=== PATIENT | male | born 1990 | race Caucasian/White ===

== ENCOUNTER 2017-02-03 19:23 | Emergency (ER) | payer BC ==
[2017-02-03] MEDS ORDERED: oxyCODONE TAB* 5 MG TAB PO ONE ×3 (21:35→23:23)
[2017-02-03] MEDS ORDERED: Clindamycin CAP* 150 MG PO ONE (21:37)
[2017-02-03] MEDS ORDERED: oxyCODONE TAB* 5 MG TAB ONE (22:50)
[2017-02-04 00:25] VITALS: BP 118/77
--- NOTE | 2017-02-04 22:27 | ED ---
Sorin Sims Adam, scribed for Chester Gallardo MD on 02/03/17 at 2126 . Skin Complaint - HPI Summary HPI Summary: Pt is a 26 year old male presenting with skin boils in his left calf. Approximately 1 week ago the pt stole oxymorphone from his step-father, crushed it up, and injected it into his left calf. A boil developed at the site of injection and the pt attempted to zbigniew it himself. Afterwards 2 addtional boils developed in the same area of the left calf. Over the past few days the redness, swelling, and pain in the left calf have increased significantly. The pt is in a wheelchair during examination. He denies any fever. PMHx of MRSA at age 16. Negative Hx of HIV/AIDS. - History of Current Complaint Chief Complaint: EDRashSkinAbscess Time Seen by Provider: 02/03/17 21:10 Stated Complaint: LEFT LEG PAIN Hx Obtained From: Patient Onset/Duration: Started Hours Ago, Atraumatic, Still Present Timing: Constant Onset Severity: Mild Current Severity: Moderate Pain Intensity: 9 Pain Scale Used: 0-10 Numeric Skin Location: Leg - Left calf Character: Swelling, Pain, Redness, Raised Aggravating Symptom(s): Touch Alleviating Symptom(s): Nothing Associated Signs & Symptoms: Negative - Additional Pertinent History Primary Care Physician: SWATHI - Allergy/Home Medications Allergies/Adverse Reactions: Allergies Allergy/AdvReac Type Severity Reaction Status Date / Time Acetaminophen [From Tylenol] Allergy Severe See Comment Verified 06/23/16 13:09 Penicillins Allergy Severe anaphylaxis Verified 06/23/16 13:09 Tramadol Allergy Severe Diarrhea Verified 06/23/16 13:09 PMH/Surg Hx/FS Hx/Imm Hx Endocrine/Hematology History: Reports: Hx Anemia - LOW HH Denies: Hx Diabetes Cardiovascular History: Reports: Hx Congestive Heart Failure - pt. says he was diagnosed, "went away" Denies: Hx Hypertension, Hx Pacemaker/ICD, Other Cardiovascular Problems/ Disorders Respiratory History: Denies: Hx Asthma, Hx Chronic Obstructive Pulmonary Disease (COPD), Other Respiratory Problems/Disorders History: Reports: Hx Kidney Stones - passed on own Denies: Hx Renal Disease Musculoskeletal History: Reports: Hx Back Problems, Hx Gout, Other Musculoskeletal History - SCOLIOSIS, previous upper extremity infection, LOWER BACK STENOSIS Sensory History: Denies: Hx Contacts or Glasses, Hx Hearing Aid Opthamlomology History: Denies: Hx Contacts or Glasses Neurological History: Reports: Hx Headaches, Hx Migraine, Hx Seizures Psychiatric History: Reports: Hx Anxiety, Hx Depression, Hx Inpatient Treatment - [facility] in [facility] - [place] Hx Substance Abuse - IV opana and IV suboxone - Surgical History Surgery Procedure, Year, and Place: LEFT ARM SURGERY FOR INFECTION (INFECTION FROM IV HEROIN USE) Hx Anesthesia Reactions: No Infectious Disease History: Yes Infectious Disease History: Reports: Hx of Known/Suspected MRSA Denies: History Other Infectious Disease, Traveled Outside the in Last 30 Days - Family History Known Family History: Positive: Hypertension, Diabetes - Social History Occupation: Unemployed Lives: With Family - Mother Alcohol Use: None Hx Substance Use: Yes Substance Use Type: Reports: Heroin, Prescribed Substance Use Comment - Amount & Last Used: Hx of heroin and prescription drug abuse Hx Tobacco Use: Yes Smoking Status (MU): Current Every Day Smoker Type: Cigarettes Amount Used/How Often: 1/2 PPD Review of Systems Negative: Fever, Chills Negative: Erythema Negative: Sore Throat Negative: Chest Pain Negative: Shortness Of Breath, Cough Negative: Abdominal Pain, Vomiting, Nausea Negative: dysuria, hematuria Positive: Myalgia - Left calf, Edema - Left calf Positive: Other - Painful fluctuant boils on left calf with surrounding erythema Neurological: Other - Negative dizziness All Other Systems Reviewed And Are Negative: Yes Physical Exam - Summary Physical Exam Summary: Constitutional: Well-developed, Well-nourished, Alert. (-) Distressed Skin: Boils on left posterior calf which are fluctuant. Not actively draining. Surrounding area of erythema and induration measuring approximately 6 cm x 20 cm. HENT: Normocephalic; Atraumatic Eyes: Conjunctiva normal Neck: Musculoskeletal ROM normal neck. (-) JVD, (-) Stridor, (-) Tracheal deviation Cardio: Rhythm regular, rate normal, Heart sounds normal; Intact distal pulses; The pedal pulses are 2+ and symmetric. Radial pulses are 2+ and symmetric. (-) Murmur Pulmonary/Chest wall: Effort normal. (-) Respiratory distress, (-) Wheezes, (-) Rales Abd: Soft, (-) Tenderness, (-) Distension, (-) Guarding, (-) Rebound Musculoskeletal: See under "Skin" above. Lymph: (-) Cervical adenopathy Neuro: Alert, Oriented x3 Psych: Mood and affect Normal Triage Information Reviewed: Yes Vital Signs On Initial Exam: Initial Vitals Temp Pulse Resp BP Pulse Ox 98.6 F 116 18 127/69 97 02/03/17 19:27 02/03/17 19:27 02/03/17 19:27 02/03/17 19:27 02/03/17 19:27 Vital Signs Reviewed: Yes Procedures - Incision and Drainage Site: Left calf. 3 separate I&D's. Massive amounts of pus, malodorous. Diagnostics - Vital Signs Vital Signs Temp Pulse Resp BP Pulse Ox 02/03/17 19:27 98.6 F 116 18 127/69 97 - Laboratory Lab Statement: Any lab studies that have been ordered have been reviewed, and results considered in the medical decision making process. Course/Dx - Diagnoses Provider Diagnoses: Heroin abuse, Cutaneous abscesses Discharge - Discharge Plan Condition: Stable Disposition: HOME Patient Education Materials: Narcotic Abuse (ED), Abscess (ED) Referrals: Sahil Bro MD [Medical Doctor] - Additional Instructions: Follow up with Dr. Bro (Surgery) in 2 days. The documentation as recorded by the Sorin browning Adam accurately reflects the service I personally performed and the decisions made by , Chester Gallardo MD.
== END 2017-02-04 00:24 | disposition home or self-care (01) ==
LOC: ED 19:23
DX: L02.91 Cutaneous abscess, unspecified (principal); F11.10 Opioid abuse, uncomplicated; M79.605 Pain in left leg; F17.210 Nicotine dependence, cigarettes, uncomplicated
CPT/HCPCS: 99282; A9270-GY

== ENCOUNTER 2017-03-03 19:13 | Emergency (ER) | payer BC ==
[2017-03-03] MEDS ORDERED: oxyCODONE TAB* 5 MG TAB PO ONE (21:07)
--- NOTE | 2017-03-03 21:51 | RAD ---
HISTORY: Right hand swelling COMPARISONS: June 21, 2016 TECHNIQUE: Multiple transverse and longitudinal ultrasound images were obtained of the right upper extremity from the level of the internal jugular vein inferiorly through to the infra-cubital veins using grayscale, color Doppler, and spectral Doppler imaging with and without compression and with augmentation. Comparison images were obtained of the contralateral internal jugular vein and subclavian vein. FINDINGS: The study is somewhat limited secondary to patient pain. VEINS: The venous system of the right upper extremity is compressible throughout its course, with normal flow on color Doppler imaging and normal response to augmentation on spectral Doppler imaging. SOFT TISSUES: Unremarkable. OTHER FINDINGS: None. IMPRESSION: NO RIGHT UPPER EXTREMITY DEEP VEIN THROMBOSIS
--- NOTE | 2017-03-03 22:13 | RAD ---
HISTORY: Right hand swelling COMPARISONS: None relevant VIEWS: 4, Frontal, lateral, and oblique views of the right hand FINDINGS: BONE DENSITY: Normal. BONES: There is no displaced fracture. JOINTS: There is no arthropathy. ALIGNMENT: There is no dislocation. SOFT TISSUES: Unremarkable. OTHER FINDINGS: None. IMPRESSION: NO ACUTE OSSEOUS INJURY. IF SYMPTOMS PERSIST, RECOMMEND REPEAT IMAGING.
[2017-03-03] MEDS ORDERED: ALPRAZolam TAB* 0.5 MG PO ONE (23:44)
--- NOTE | 2017-03-03 23:49 | ED ---
Upper Extremity Pain - HPI Summary HPI Summary: 26M presents with wrist pain for 2 days. He denies any injury. He denies any recent IV drug use but has history of IV drug use. He was admitted in the past for infection of his right hand. He states the swelling and the pain in his wrist has increased. He denies any fever. He states that he has a history of blood clots. He states he is unable to move his wrist due to pain. He was on opana 4 times a day for many months. He takes alprazolam 2mg 4 times a day. He is right handed. - History of Current Complaint Chief Complaint: EDExtremityUpper Stated Complaint: RIGHT ARM PAIN Time Seen by Provider: 03/03/17 20:50 - Allergies/Home Medications Allergies/Adverse Reactions: Allergies Allergy/AdvReac Type Severity Reaction Status Date / Time Acetaminophen [From Tylenol] Allergy Severe See Comment Verified 06/23/16 13:09 Penicillins Allergy Severe anaphylaxis Verified 06/23/16 13:09 Tramadol Allergy Severe Diarrhea Verified 06/23/16 13:09 PMH/Surg Hx/FS Hx/Imm Hx Endocrine/Hematology History: Reports: Hx Anemia - LOW HH Denies: Hx Diabetes Cardiovascular History: Reports: Hx Congestive Heart Failure - pt. says he was diagnosed, "went away" Denies: Hx Hypertension, Hx Pacemaker/ICD, Other Cardiovascular Problems/ Disorders Respiratory History: Denies: Hx Asthma, Hx Chronic Obstructive Pulmonary Disease (COPD), Other Respiratory Problems/Disorders History: Reports: Hx Kidney Stones - passed on own Denies: Hx Renal Disease Musculoskeletal History: Reports: Hx Back Problems, Hx Gout, Other Musculoskeletal History - SCOLIOSIS, previous upper extremity infection, LOWER BACK STENOSIS Sensory History: Denies: Hx Contacts or Glasses, Hx Hearing Aid Opthamlomology History: Denies: Hx Contacts or Glasses Neurological History: Reports: Hx Headaches, Hx Migraine, Hx Seizures Psychiatric History: Reports: Hx Anxiety, Hx Depression, Hx Inpatient Treatment - [facility] in [facility] Hx Substance Abuse - IV opana and IV suboxone - Surgical History Surgery Procedure, Year, and Place: LEFT ARM SURGERY FOR INFECTION (INFECTION FROM IV HEROIN USE) Hx Anesthesia Reactions: No Infectious Disease History: No Infectious Disease History: Reports: Hx of Known/Suspected MRSA Denies: History Other Infectious Disease, Traveled Outside the in Last 30 Days - Family History Known Family History: Positive: Hypertension, Diabetes - Social History Alcohol Use: None Hx Substance Use: Yes Substance Use Type: Reports: Heroin, Prescribed Substance Use Comment - Amount & Last Used: Hx of heroin and prescription drug abuse Hx Tobacco Use: Yes Smoking Status (MU): Current Every Day Smoker Type: Cigarettes Amount Used/How Often: 1/2 PPD Review of Systems Negative: Fever Negative: Chest Pain Negative: Shortness Of Breath Positive: Decreased ROM, Edema - right wrist All Other Systems Reviewed And Are Negative: Yes Physical Exam Triage Information Reviewed: Yes Vital Signs On Initial Exam: Initial Vitals Temp Pulse Resp BP Pulse Ox 97.6 F 112 15 128/86 100 03/03/17 19:16 03/03/17 19:16 03/03/17 19:16 03/03/17 19:16 03/03/17 19:16 Vital Signs Reviewed: Yes Appearance: Positive: Well-Appearing Skin: Positive: Warm, Dry Head/Face: Positive: Normal Head/Face Inspection Eyes: Positive: Normal, Conjunctiva Clear Respiratory/Lung Sounds: Positive: Clear to Auscultation, Breath Sounds Present Cardiovascular: Positive: Normal, RRR Musculoskeletal: Positive: Edema Right - hand to elbow, Other - good pulses, tender to palpation of right hand to elbow, capillary refill <2 secs, no pain with finger with passive motion, pain with passive motion of wrist, Diagnostics - Vital Signs Vital Signs Temp Pulse Resp BP Pulse Ox 03/03/17 19:16 97.6 F 112 15 128/86 100 - Laboratory Lab Statement: Any lab studies that have been ordered have been reviewed, and results considered in the medical decision making process. - Radiology hand Xray Interpretation: No Acute Changes Radiology Interpretation Completed By: Radiologist - Ultrasound No standard instances Ultrasound Interpretation: No Acute Changes Ultrasound Interpretation Completed By: Radiologist Course/Dx - Course Course Of Treatment: 26M presents with right lower arm swelling. has history of MRSA. no fever. has history of infections due to IV drug use and DVT. on exam edema noted from elbow down right hand. pain with passive ROM of wrist but patient is resistent to movement so unclear if actually is true pain with passive ROM. u/s normal for DVT. dr orozco saw and agrees with patient needs to be admitted. multiple attempts at IV done and dr orozco tried jugular vein IV but unable to get one. patient is refusing central line. discussed with hospital would admit if got labs. patient is refusing labs. patient is in room screaming when mom present but when mom leaves patient on computer appear comfortable. discussed with dr orozco and said to send home on PO antibiotics. during course of time in ED patient developed some erythema of his hand. will treat with levaquin and told to return if gets worst or in two days. patient understands and agrees with plan - Diagnoses Differential Diagnosis/HQI/PQRI: Positive: Other - cellulitis, deep soft tissue infection, DVT Provider Diagnoses: CELLULITIS Discharge - Discharge Plan Condition: Stable Disposition: HOME Prescriptions: Levofloxacin TAB* [Levaquin TAB*] 750 mg PO DAILY #13 tab oxyCODONE TAB* [Roxycodone TAB 5 mg*] 5 mg PO Q4H PRN #12 tab MDD 6 PRN Reason: Pain Patient Education Materials: Cellulitis (ED) Referrals: Isidro Levy MD [Primary Care Provider] - Additional Instructions: Take antibiotic once a day for 14 days Take ibuprofen for pain every 6 hours, take narcotic for break through pain Place ice on area Return to ED in two days or if develop fever, infection spreads, or any new or worsening symptoms
[2017-03-04] MEDS ORDERED: Levofloxacin TAB* 250 MG PO ONE (01:10)
[2017-03-04] MEDS ORDERED: Ketorolac INJ* 60 MG/2 ML VIAL IM ONE (01:42)
[2017-03-04] MEDS ORDERED: HYDROmorphone* 1 MG/ML 1 ML SYR IM ONE (02:02)
[2017-03-04 03:12] VITALS: BP 123/74
== END 2017-03-04 03:10 | disposition home or self-care (01) ==
LOC: ED 19:13
DX: L03.90 Cellulitis, unspecified (principal); R60.0 Localized edema; F17.210 Nicotine dependence, cigarettes, uncomplicated
CPT/HCPCS: 96374; 96375; 99282; A9270-GY; J1170; J1885

== ENCOUNTER 2017-03-09 07:25 | Emergency (ER) | payer BC ==
[2017-03-09] MEDS ORDERED: clonazePAM TAB(*) 1 MG PO ONE (07:59)
[2017-03-09 08:19] VITALS: BP 129/77
--- NOTE | 2017-03-09 08:20 | ED ---
maday Sims Timothy, scribed for Tunde Stark MD on 03/09/17 at 0754 . Neurological HPI - HPI Summary HPI Summary: Lorenzo Victor is a 26 yo male presenting to [facility] with a seizure while he was sleeping last night. Pt states he lost his xanax traveling, and is requesting xanax. Pt has an appointment with Dr. Levy for a refill on 03/13/17. He states he did not bite his tongue and was not incontinent, but did have some head trauma when he fell out of the couch he was sleeping on. Per triage, Pt is with tremors. He states his PCP will prescribe clonapin instead of xanax. His MHx includes heart murmur, CHF, palpitations, migraine, seizures, spinal cord deformities, bronchitis, anorexia nervosa, kidney stones, gout, scoliosis, anemia, MRSA, depression, anxiety, IV opana and suboxone abuse, tobacco use. - History of Current Complaint Chief Complaint: EDGeneral Stated Complaint: SEIZURE Time Seen by Provider: 03/09/17 07:47 Hx Obtained From: Patient Onset/Duration: Sudden Onset, Started hours ago Timing: Intermittent Episodes Lasting: Onset Severity: Moderate Current Severity: Moderate Seizure Severity: Moderate Number of Seizures: 1 Pain Intensity: 0 Pain Scale Used: 0-10 Numeric Character: Other: - seizure Episode Lasting: Seconds/Minutes Number of Episodes: 1 Syncope Context: Unwitnessed, At Rest Frequency: Episodes x___ - 1 Seizure Character: Generalized Associated Signs and Symptoms: Positive: Change in Medication - lost xanax - Additional Pertinent History Primary Care Physician: [id number] - Allergy/Home Medications Allergies/Adverse Reactions: Allergies Allergy/AdvReac Type Severity Reaction Status Date / Time Acetaminophen [From Tylenol] Allergy Severe See Comment Verified 06/23/16 13:09 Penicillins Allergy Severe anaphylaxis Verified 06/23/16 13:09 Tramadol Allergy Severe Diarrhea Verified 06/23/16 13:09 PMH/Surg Hx/FS Hx/Imm Hx Endocrine/Hematology History: Reports: Hx Anemia - LOW HH Denies: Hx Diabetes Cardiovascular History: Reports: Hx Congestive Heart Failure - pt. says he was diagnosed, "went away" Denies: Hx Hypertension, Hx Pacemaker/ICD, Other Cardiovascular Problems/ Disorders Respiratory History: Denies: Hx Asthma, Hx Chronic Obstructive Pulmonary Disease (COPD), Other Respiratory Problems/Disorders History: Reports: Hx Kidney Stones - passed on own Denies: Hx Renal Disease Musculoskeletal History: Reports: Hx Back Problems, Hx Gout, Other Musculoskeletal History - SCOLIOSIS, previous upper extremity infection, LOWER BACK STENOSIS Sensory History: Denies: Hx Contacts or Glasses, Hx Hearing Aid Opthamlomology History: Denies: Hx Contacts or Glasses Neurological History: Reports: Hx Headaches, Hx Migraine, Hx Seizures Psychiatric History: Reports: Hx Anxiety, Hx Depression, Hx Inpatient Treatment - [facility] in [facility], Hx Substance Abuse - IV opana and IV suboxone - Surgical History Surgery Procedure, Year, and Place: LEFT ARM SURGERY FOR INFECTION (INFECTION FROM IV HEROIN USE) Hx Anesthesia Reactions: No Infectious Disease History: No Infectious Disease History: Reports: Hx of Known/Suspected MRSA Denies: History Other Infectious Disease, Traveled Outside the in Last 30 Days - Family History Known Family History: Positive: Hypertension, Diabetes - Social History Alcohol Use: None Hx Substance Use: Yes Substance Use Type: Reports: Heroin, Prescribed Substance Use Comment - Amount & Last Used: Hx of heroin and prescription drug abuse Hx Tobacco Use: Yes Smoking Status (MU): Current Every Day Smoker Type: Cigarettes Amount Used/How Often: 1/2 PPD Review of Systems Constitutional: Negative Eyes: Negative ENT: Negative Cardiovascular: Negative Respiratory: Negative Gastrointestinal: Negative Genitourinary: Negative Musculoskeletal: Negative Skin: Negative Neurological: Other - seizure Psychological: Normal All Other Systems Reviewed And Are Negative: Yes Physical Exam - Summary Physical Exam Summary: The patient is well-nourished in no acute distress and in no acute pain. The skin is warm and dry and skin color reflects adequate perfusion. HEENT: The head is normocephalic and atraumatic. The pupils are equal and reactive, not pinpoint. The conjunctivae are clear and without drainage. Nares are patent and without drainage. Mouth reveals moist mucous membranes and the throat is without erythema and exudate. The external ears are intact. The ear canals are patent and without drainage. The tympanic membranes are intact. There is a slight tremor in his tongue. Neck is supple with full range of motion and non-tender. There are no carotid bruits. There is no neck vein distension. Respiratory: Chest is non-tender. Lungs are not clear to auscultation, there is rhonchi and wheezing. Cardiovascular: Hear is regular rate and rhythm. There is no murmur or rub auscultated. There is no peripheral edema and pulses are symmetrical and equal. Abdomen: The abdomen is soft and non-tender. There are normal bowel sounds heard in all four quadrants and there is no organomegaly palpated. Musculoskeletal: There is no back pain noted. Extremities are non-tender with full range of motion. There is good capillary refill. There is no peripheral edema or calf tenderness elicited. Neurological: Patient is alert and oriented to person, place and time. The patient has symmetrical motor strength in all four extremities. Cranial nerves are grossly intact. Deep tendon reflexes are symmetrical and equal in all four extremities. There is a slight termor at rest in his extremities. Psychiatric: The patient has an appropriate affect and does not exhibit any anxiety or depression. Triage Information Reviewed: Yes Vital Signs On Initial Exam: Initial Vitals Temp Pulse Resp BP Pulse Ox 98.2 F 87 20 148/86 100 03/09/17 07:27 03/09/17 07:27 03/09/17 07:27 03/09/17 07:27 03/09/17 07:27 Vital Signs Reviewed: Yes Diagnostics - Vital Signs Vital Signs Temp Pulse Resp BP Pulse Ox 03/09/17 07:29 98.4 F 113 20 148/86 100 03/09/17 07:27 98.2 F 87 20 148/86 100 - Laboratory Lab Statement: Any lab studies that have been ordered have been reviewed, and results considered in the medical decision making process. Course/Dx - Course Assessment/Plan: Lorenzo Victor is a 26 yo male presenting to [facility] due to a seizure in his sleep last night. He states he lost his xanax while traveling, and is requesting more. His medication list was reviewed this visit. ISTOP was consulted this visit, Pt has prescriptions for Xanax every two weeks, he has no Hx of seeking xanax from the ED. After clinical examination, he will be discharged with prescription refill and benzodiazepine withdrawal with appropriate instructions and a Rx for klonopin. - Differential Dx Differential Diagnoses Neuro: Positive: Medication Reaction, Seizure Disorder, Other - benzodiazepine withdrawal - Diagnoses Provider Diagnoses: Prescription refill, Benzodiazepine withdrawal Discharge - Discharge Plan Condition: Stable Disposition: HOME Prescriptions: clonazePAM TAB(*) [KlonoPIN TAB(*)] 1 mg PO TID PRN #12 tab MDD 3 PRN Reason: Anxiety Patient Education Materials: Anxiety (ED), Panic Attack (ED) Referrals: Isidro Levy MD [Primary Care Provider] - 5 Days Additional Instructions: Please follow up with your primary care physician regarding your visit to the emergency department today. Return to the emergency department with any new or recurring symptoms. The documentation as recorded by the maday browning Timothy accurately reflects the service I personally performed and the decisions made by me, Tunde Stark MD.
[2017-03-09] MEDS ORDERED: clonazePAM TAB(*) 0.5 MG PO ONE (09:00)
== END 2017-03-09 08:21 | disposition home or self-care (01) ==
LOC: ED 07:25
DX: F13.239 Sedative, hypnotic or anxiolytic dependence with withdrawal, unspecified (principal); R56.9 Unspecified convulsions; T42.4X5A Adverse effect of benzodiazepines, initial encounter; D64.9 Anemia, unspecified; F17.210 Nicotine dependence, cigarettes, uncomplicated
CPT/HCPCS: 99282; A9270-GY

== ENCOUNTER 2017-07-29 15:10 | Inpatient (IN) | payer BC ==
[2017-07-29] MEDS ORDERED: Vancomycin(*) 1,000 MG VIAL IVPB ONE (16:00)
[2017-07-29] MEDS ORDERED: Vancomycin(*) 1,000 MG VIAL IVPB SCH (16:00)
[2017-07-29] MEDS ORDERED: Vancomycin(*) 1,250 MG IV x ONCE IVPB ONE ×2 (16:00)
[2017-07-29] MEDS ORDERED: Lidocaine 1%* 5 ML VIAL ONE (16:09)
[2017-07-29] MEDS: NS 0.9% 1000 ML*IV.FLUID IV ONE ×2 (16:39→16:40)
[2017-07-29 17:12] LABS: Hematocrit 35 % (42-52); Hemoglobin 11.4 g/dl (14.0-18.0); Mean Corpuscular HGB Conc 33 g/dl (31-36); Mean Corpuscular Hemoglobin 26 pg (27-31); Mean Corpuscular Volume 80 fL (80-94); Mean Platelet Volume 9 um3 (7.4-10.4); Red Blood Count 4.33 10^6/ul (4.0-5.4); Red Cell Distribution Width 16 % (10.5-15); White Blood Count 10.1 10^3/ul (3.5-10.8)
[2017-07-29] MEDS ORDERED: Ketorolac INJ* 30 MG/ML 1 ML VIAL IV PUSH ONE (17:17)
[2017-07-29 17:30] LABS: Albumin 3.7 g/dL (3.2-5.2); BUN/Creatinine Ratio 16.7 (8-20); C Reactive Protein 128.21 mg/L (< 5.00); Calcium 9.2 mg/dL (8.6-10.3); EGFR African American 172.5 (>60); EGFR Non-African American 134.1 (>60); Globulin 4.5 g/dL (2-4); Potassium 3.5 mmol/L (3.5-5.0); Total Bilirubin 0.4 mg/dL (0.2-1.0); Total Protein 8.2 g/dL (6.4-8.9)
[2017-07-29 17:31] LABS: Troponin I 0.01 ng/mL (<0.04)
--- NOTE | 2017-07-29 17:36 | RAD ---
INDICATION: Sepsis. COMPARISON: Comparison is made with a prior chest x-ray study from January 24, 2016. TECHNIQUE: A portable view of the chest was obtained. FINDINGS: Cardiac and mediastinal contours appear to be within normal limits. The lungs are underinflated and clear. No pleural effusion is seen. IMPRESSION: NO EVIDENCE FOR ACUTE DISEASE.
[2017-07-29 18:05] LABS: Erythrocyte Sed Rate 81 mm/Hr (0-14)
[2017-07-29] MEDS ORDERED: Vancomycin per Pharmacy* NOTE FOLLOW UP PRN (18:28)
--- NOTE | 2017-07-29 18:39 | ED ---
Ajay Sims Thomas, scribed for Олег Tucker MD on 07/29/17 at 1611 . Skin Complaint - HPI Summary HPI Summary: The patient is a 26 y/o M presenting to the ED with an abscess on his RLE that he first noticed a week ago. Today it became painful to ambulate, prompting an ED visit. His current pain is 10/10. He has a Hx of abscesses. He denies IV drug use in the last 3 years. He is on 2mg Xanax every four hours for his social anxiety disorder and panic attacks. 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 He smokes 1 PPD and occasionally drinks alcohol. FHx of DM. - History of Current Complaint Chief Complaint: EDGeneral Time Seen by Provider: 07/29/17 15:43 Stated Complaint: INFECTION IN RT LOWER EXTREMITY Hx Obtained From: Patient Onset/Duration: Started Weeks Ago - onset one week ago, Still Present, Worse Since - today Timing: Constant Pain Intensity: 10 Pain Scale Used: 0-10 Numeric Skin Location: Other: - RLE and LLE Character: Pain Aggravating Symptom(s): Nothing Alleviating Symptom(s): Nothing Associated Signs & Symptoms: Fever Related History: Other: - Hx of abscesses - Additional Pertinent History Primary Care Physician: [id number] - Allergy/Home Medications Allergies/Adverse Reactions: Allergies Allergy/AdvReac Type Severity Reaction Status Date / Time Acetaminophen [From Tylenol] Allergy Severe See Comment Verified 06/23/16 13:09 Penicillins Allergy Severe anaphylaxis Verified 06/23/16 13:09 Tramadol Allergy Severe Diarrhea Verified 06/23/16 13:09 Home Medications: Home Medications Hydromorphone HCl [Hydromorphone HCl ER 8 mg] 2 mg PO Q4H 07/29/17 [History Confirmed 07/29/17] PMH/Surg Hx/FS Hx/Imm Hx Previously Healthy: No Endocrine/Hematology History: Reports: Hx Anemia - LOW HH Denies: Hx Diabetes Cardiovascular History: Reports: Hx Congestive Heart Failure - pt. says he was diagnosed, "went away" Denies: Hx Hypertension, Hx Pacemaker/ICD, Other Cardiovascular Problems/ Disorders Respiratory History: Denies: Hx Asthma, Hx Chronic Obstructive Pulmonary Disease (COPD), Other Respiratory Problems/Disorders History: Reports: Hx Kidney Stones - passed on own Denies: Hx Renal Disease Musculoskeletal History: Reports: Hx Back Problems, Hx Gout, Other Musculoskeletal History - SCOLIOSIS, previous upper extremity infection, LOWER BACK STENOSIS Sensory History: Denies: Hx Contacts or Glasses, Hx Hearing Aid Opthamlomology History: Denies: Hx Contacts or Glasses Neurological History: Reports: Hx Headaches, Hx Migraine, Hx Seizures Psychiatric History: Reports: Hx Anxiety, Hx Depression, Hx Inpatient Treatment - [facility] in [facility] Hx Substance Abuse - IV opana and IV suboxone - Surgical History Surgery Procedure, Year, and Place: LEFT ARM SURGERY FOR INFECTION (INFECTION FROM IV HEROIN USE) Hx Anesthesia Reactions: No Infectious Disease History: Yes Infectious Disease History: Reports: Hx of Known/Suspected MRSA Denies: History Other Infectious Disease, Traveled Outside the in Last 30 Days - Family History Known Family History: Positive: Hypertension, Diabetes - Social History Alcohol Use: Rare Hx Substance Use: Yes Substance Use Type: Reports: Prescribed Substance Use Comment - Amount & Last Used: Hx of prescription drug abuse intravenously Hx Tobacco Use: Yes Smoking Status (MU): Light Every Day Tobacco Smoker Type: Cigarettes Amount Used/How Often: 1/2 PPD Review of Systems Positive: Fever Positive: Other - Large abscess in right leg. Small abscesses on left leg. All Other Systems Reviewed And Are Negative: Yes Physical Exam - Summary Physical Exam Summary: VITAL SIGNS: Reviewed. GENERAL: Patient is a well-developed and nourished male who is lying comfortable in the stretcher. Patient is not in any acute respiratory distress. HEAD AND FACE: No signs of trauma. No ecchymosis, hematomas or skull depressions. No sinus tenderness. EYES: PERRLA, EOMI x 2, No injected conjunctiva, no nystagmus. EARS: Hearing grossly intact. Ear canals and tympanic membranes are within normal limits. MOUTH: Oropharynx within normal limits. NECK: Supple, trachea is midline, no adenopathy, no JVD, no carotid bruit, no c- spine tenderness, neck with full ROM. CHEST: Symmetric, no tenderness at palpation LUNGS: Clear to auscultation bilaterally. No wheezing or crackles. CVS: Regular rhythm, tachycardic. S1 and S2 present, no murmurs or gallops appreciated. ABDOMEN: Soft, non-tender. No signs of distention. No rebound no guarding, and no masses palpated. Bowel sounds are normal. EXTREMITIES: FROM in all major joints, no edema, no cyanosis or clubbing. NEURO: Alert and oriented x 3. No acute neurological deficits. Speech is normal and follows commands. SKIN: Dry and warm. There are multiple abscesses on the right leg. There is a big abscess in the right calf. There is cellulitis. He has pallor. Triage Information Reviewed: Yes Vital Signs On Initial Exam: Initial Vitals Temp Pulse Resp BP Pulse Ox 100.3 F 110 20 123/67 100 07/29/17 15:13 07/29/17 15:13 07/29/17 15:13 07/29/17 15:13 07/29/17 15:13 Vital Signs Reviewed: Yes - [place] Coma Scale Coma Scale Total: 15 Procedures - Incision and Drainage Anesthesia: Local - The patient was appropriately positioned. 5cc of lidocaine without epinephrine was used for local anesthesia. An 11 blade scalpel was used for a single incision. Copious amounts of pus were expressed. Cultures were obtained and sent to the lab. The wound was packed with Iodoform gauze. The procedure was tolerated well without complications. The wound was dressed with sterile 4x4 gauze and paper tape. Instrument(s): Scalpel - 11 blade Packing: Gauze - Iodoform Gauze Diagnostics - Vital Signs Vital Signs Temp Pulse Resp BP Pulse Ox 07/29/17 15:13 100.3 F 110 20 123/67 100 - Laboratory Lab Results: Lab Results 07/29/17 07/29/17 07/29/17 Range/Units 16:37 16:37 16:37 WBC 10.1 (3.5-10.8) 10^3/ul RBC 4.33 (4.0-5.4) 10^6/ul Hgb 11.4 L (14.0-18.0) g/dl Hct 35 L (42-52) % MCV 80 (80-94) fL MCH 26 L (27-31) pg MCHC 33 (31-36) g/dl RDW 16 H (10.5-15) % Plt Count 197 (150-450) 10^3/ul MPV 9 (7.4-10.4) um3 Neut % (Auto) 74.6 (38-83) % Lymph % (Auto) 15.9 L (25-47) % [place] % (Auto) 8.9 (1-9) % Eos % (Auto) 0.5 (0-6) % Baso % (Auto) 0.1 (0-2) % Absolute Neuts (auto) 7.5 (1.5-7.7) 10^3/ul Absolute Lymphs (auto) 1.6 (1.0-4.8) 10^3/ul Absolute Monos (auto) 0.9 H (0-0.8) 10^3/ul Absolute Eos (auto) 0.1 (0-0.6) 10^3/ul Absolute Basos (auto) 0 (0-0.2) 10^3/ul Absolute Nucleated RBC 0.01 10^3/ul Nucleated RBC % 0.1 ESR 81 H (0-14) mm/Hr INR (Anticoag Therapy) 1.10 (0.89-1.11) APTT 29.0 (26.0-36.3) seconds Fibrinogen 597 H (110.8-404.3) mg/dL Sodium 139 (133-145) mmol/L Potassium 3.5 (3.5-5.0) mmol/L Chloride 104 (101-111) mmol/L Carbon Dioxide 26 (22-32) mmol/L Anion Gap 9 (2-11) mmol/L BUN 12 (6-24) mg/dL Creatinine 0.72 (0.67-1.17) mg/dL Est GFR ( Amer) 172.5 (>60) Est GFR (Non-Af Amer) 134.1 (>60) BUN/Creatinine Ratio 16.7 (8-20) Glucose 86 (70-100) mg/dL Lactic Acid (0.5-2.0) mmol/L Calcium 9.2 (8.6-10.3) mg/dL Total Bilirubin 0.40 (0.2-1.0) mg/dL AST 10 L (13-39) U/L ALT 19 (7-52) U/L Alkaline Phosphatase 67 (34-104) U/L Troponin I 0.01 (<0.04) ng/mL C-Reactive Protein 128.21 H (< 5.00) mg/L B-Natriuretic Peptide ( - 100) pg/mL Total Protein 8.2 (6.4-8.9) g/dL Albumin 3.7 (3.2-5.2) g/dL Globulin 4.5 H (2-4) g/dL Albumin/Globulin Ratio 0.8 L (1-3) Procalcitonin (<0.6) ng/mL 07/29/17 07/29/17 07/29/17 Range/Units 16:37 16:37 16:37 WBC (3.5-10.8) 10^3/ul RBC (4.0-5.4) 10^6/ul Hgb (14.0-18.0) g/dl Hct (42-52) % MCV (80-94) fL MCH (27-31) pg MCHC (31-36) g/dl RDW (10.5-15) % Plt Count (150-450) 10^3/ul MPV (7.4-10.4) um3 Neut % (Auto) (38-83) % Lymph % (Auto) (25-47) % [place] % (Auto) (1-9) % Eos % (Auto) (0-6) % Baso % (Auto) (0-2) % Absolute Neuts (auto) (1.5-7.7) 10^3/ul Absolute Lymphs (auto) (1.0-4.8) 10^3/ul Absolute Monos (auto) (0-0.8) 10^3/ul Absolute Eos (auto) (0-0.6) 10^3/ul Absolute Basos (auto) (0-0.2) 10^3/ul Absolute Nucleated RBC 10^3/ul Nucleated RBC % ESR (0-14) mm/Hr INR (Anticoag Therapy) (0.89-1.11) APTT (26.0-36.3) seconds Fibrinogen (110.8-404.3) mg/dL Sodium (133-145) mmol/L Potassium (3.5-5.0) mmol/L Chloride (101-111) mmol/L Carbon Dioxide (22-32) mmol/L Anion Gap (2-11) mmol/L BUN (6-24) mg/dL Creatinine (0.67-1.17) mg/dL Est GFR ( Amer) (>60) Est GFR (Non-Af Amer) (>60) BUN/Creatinine Ratio (8-20) Glucose (70-100) mg/dL Lactic Acid 1.3 (0.5-2.0) mmol/L Calcium (8.6-10.3) mg/dL Total Bilirubin (0.2-1.0) mg/dL AST (13-39) U/L ALT (7-52) U/L Alkaline Phosphatase (34-104) U/L Troponin I (<0.04) ng/mL C-Reactive Protein (< 5.00) mg/L B-Natriuretic Peptide 93 ( - 100) pg/mL Total Protein (6.4-8.9) g/dL Albumin (3.2-5.2) g/dL Globulin (2-4) g/dL Albumin/Globulin Ratio (1-3) Procalcitonin 0.1 (<0.6) ng/mL Result Diagrams: 07/29/17 16:37 07/29/17 16:37 Lab Statement: Any lab studies that have been ordered have been reviewed, and results considered in the medical decision making process. - EKG 15:35 Cardiac Rate: NL - 86 BPM EKG Interpretation: Sinus rhythm. No ST elevations. Q-wave in lead III. Course/Dx - Course Assessment/Plan: The patient is a 26 y/o M presenting to the ED with an abscess on his RLE that he first noticed a week ago. Today it became painful to ambulate , prompting an ED visit. His current pain is 10/10. He has a Hx of abscesses. He denies IV drug use in the last 3 years. He is on 2mg Xanax every four hours for his social anxiety disorder and panic attacks. 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 He smokes 1 PPD and occasionally drinks alcohol. FHx of DM. Test results are without significant abnormality except a slight anemia, fibrinogen of 597, and CRP of 128.21. Initially, when the patient came in he had a fever of 100.3. The patient was tachycardic and his BP was on the low side. Initially the patient was given vancomycin because of his Hx of MRSA. The patient was given Toradol for the pain and IV fluids since he was slightly hypotensive. At this point, I discussed the physical exam and findings with Dr. Vasquez, who accepts the patient for admission. The patient is hemodynamically stable and alert and oriented x3. - Diagnoses Provider Diagnoses: Abscess, Cellulitis, Rule out sepsis - Physician Notifications Discussed Care Of Patient With: Livia Vasquez Time Discussed With Above Provider: 18:00 Instructed by Provider To: Other - I consulted with Dr. Vasquez, hospitalist, who accepts the patient [place] [facility] [place] - Discharge Plan Condition: Fair Disposition: ADMITTED TO [facility] Discharge Disposition Comment: By Dr. Vasquez The documentation as recorded by the Ajay browning Thomas accurately reflects the service I personally performed and the decisions made by me, Олег Tucker MD.
[2017-07-29] MEDS: ALPRAZolam TAB* 0.5 MG PO PRN (19:23)
[2017-07-29] MEDS: Ketorolac TAB * 10 MG TAB PO PRN (19:23)
[2017-07-29] MEDS: Enoxaparin(*) 40 MG/0.4 ML SYR SUBCUT SCH (19:53)
[2017-07-29] MEDS: NS 0.9% 1000 ML* 1,000 ML IV SCH (20:00)
[2017-07-29] MEDS ORDERED: Acetaminophen TAB* 325 MG PO PRN (20:37)
--- NOTE | 2017-07-29 21:58 | HP ---
Amended report to enter cosigning doctor. HISTORY AND PHYSICAL: DATE OF ADMISSION: 07/29/17 ADMITTING PROVIDER: Dr. Vasquez* (dictation provided by Regina Heller NP). PRIMARY PROVIDERS: Dr. Levy and Irma Weinberg NP HISTORY OF PRESENT ILLNESS: Mr. Breen is a 26-year-old male. He has a history of IV drug abuse. He states he has been in remission since he was 20 years old, but on review of his chart was found last year in 2016, he admitted at that point injecting IV drug abuse, and Dr. Rae had done a washout of his hand and I and D. On this admission, he is here with recurrent abscesses to his lower legs. He has multiple healing sores in left lower leg, one that is still open and it is healing. Today, he presents with a large right abscess to the calf. Prior to seeing the patient, the emergency doctor did an I and D. The dressing is dry and intact at this point, previously placed, was not removed to view the abscess. The patient is being admitted for vancomycin treatment while we wait for cultures to come back. The patient states that he has not previously been seeking treatment or consultation for these abscesses. The patient also states that at home, he takes Xanax 2 mg every 4 hours and Dilaudid 2 mg every 4 hours. Upon reviewing the I- STOP, he has had a prescription for 2 mg of Xanax 4 times a day but has had not had a prescription for an opioid. As previously stated, the patient will be admitted overnight for vancomycin IV and awaiting culture results of the abscess that was I and D' d by the emergency room doctor. PAST MEDICAL HISTORY: 1. IV drug abuse. The patient states that when he was 20, he went to rehab and he has been clean since but other health records do not support this. 2. He has a history of MRSA related to in ninth grade he had a sebaceous cyst abscess under his armpit that was I and D'd and that showed MRSA. 3. Recurrent leg abscesses. 4. Anxiety. 5. Depression. MEDICATIONS: That we could verify: 1. Ibuprofen, unknown amount taken. 2. Xanax. The prescription states 2 mg four times a day. 3. Lexapro 10 mg daily. ALLERGIES: The patient is allergic to PENICILLIN; TYLENOL, which causes flushing; TRAMADOL, which causes nausea. FAMILY HISTORY: Negative for heart attacks, is negative for cancer and diabetes. SOCIAL HISTORY: He does smoke at least half a pack of cigarettes a day. He denies alcohol and he does deny injecting drugs. REVIEW OF SYSTEMS: He is in the emergency room on a stretcher sitting upright, in no acute distress. He denies any visual changes. Denies chest pain, shortness of breath or cough, constipation or diarrhea. Denies hematuria or urgency. Denies muscle or joint pain. He does have multiple open areas in various stages of healing on his lower legs bilaterally. He denies dizziness. He does have a history of anxiety, which he treats with Xanax. He has a history of depression, which he uses Lexapro for treatment. He denies cold or heat intolerance. Denies any unusual bleeding or bruising. PHYSICAL EXAMINATION GENERAL: The patient is sitting on a stretcher, in no acute distress, waiting for admission. HEENT: Moist mucous membranes. PERRLA. LUNGS: Clear to auscultation bilaterally. No wheezes, rales, or rhonchi can be heard. CARDIAC: Regular rate and rhythm. S1, S2 noted. No rubs, gallops, or murmurs auscultated. ABDOMEN: Flat, soft, nontender. MUSCULOSKELETAL: Bilateral extremities with open sores to them in various stages of healing. The right lower leg has a dressing covering the abscess of his I and D by the emergency room physician. NEURO: He is alert and oriented, flat affect. IMPRESSION: The patient will be admitted overnight, will be receiving vancomycin to treat the abscesses. Wound culture pending. The patient will be provided with Xanax that he routinely takes and we will give Toradol for pain control. PLAN: 1. Right lower leg abscess. He will be receiving vancomycin. Wound cultures pending. Toradol for pain. Consult Dr. Miller for greater than 2-year history of open sores and history of MRSA. 2. Anxiety. We will be providing Xanax 2 mg 3 times a day. 3. Depression. We will continue his Lexapro. 4. DVT prophylaxis. He will be receiving Lovenox 40 mg daily and up ad ethel in his room. 5. Code status. He is a full code. His surrogate decision maker is his mother , Yu. TIME SPENT: On this exam was approximately 60 minutes with greater than half that time spent [id number] with the patient obtaining H and P, the other half time was spent going over the plan of care and implementing the plan of care. I discussed with Dr. Vasquez, who is in agreement with the plan. REGINA HELLER, FARM [employer] LEADER [id number]/[facility] #: [id number] ZAC
[2017-07-29 22:05] LABS: Urine Bilirubin Negative (Negative); Urine Glucose Negative (Negative); Urine Nitrite Negative (Negative)
[2017-07-29 22:20] LABS: Benzodiazepine Urine Screen Presumptive Positive (None Detect)
[2017-07-30] MEDS ORDERED: Vancomycin(*) 1,250 MG in NS 0.9% 250 ML* 250 ML IVPB SCH (00:30)
[2017-07-30] MEDS: Ketorolac TAB * 10 MG TAB PO PRN ×2 (08:52→20:06)
[2017-07-30] MEDS: Citalopram TAB* 20 MG PO SCH (08:52)
[2017-07-30] MEDS: ALPRAZolam TAB* 0.5 MG PO PRN ×3 (08:53→20:30)
[2017-07-30] MEDS ORDERED: HYDROmorphone TAB* 2 MG PO PRN (09:26)
[2017-07-30] MEDS: Clindamycin 600 MG IVPREMIX(* 600 MG/50 ML SDV IV SCH ×2 (10:21→18:22)
[2017-07-30] MEDS ORDERED: Polyethylene Glycol 3350* 17 GM PACKET PO PRN (10:41)
--- NOTE | 2017-07-30 12:00 | CONS ---
CONSULTATION REPORT: DATE OF CONSULT: 07/30/17 REQUESTING PROVIDER: Yanci Heller NP CONSULTING SERVICE: Infectious Disease. REASON FOR CONSULTATION: Right leg abscess. IMPRESSION: 1. Right calf abscess, which I think has not completely drained. There is some associated cellulit is. The Gram stain showed gram-positive cocci in clusters, gram- positive cocci in chains, gram-pos itive bacilli, gram-negative coccobacilli. PCR for staph aureus is positive, PCR for MRSA was negat alicia. He does have some bulla formation and is exquisitely tender to palpation, so I am concerned ab out remaining abscess as well as a localized, either purulent cellulitis or necrotizing soft tissue infection. 2. History of injection drug use. 3. PENICILLIN allergy, unknown reaction as a child. 4. Recurrent lower extremity abscess. RECOMMENDATIONS: 1. Stop vancomycin, start ceftriaxone 2 g a day. 2. Clindamycin 600 mg IV every 8 hours. I will check a CK. I discussed the case with Dr. Jose gan ho has agreed to see him in consultation. HISTORY OF PRESENT ILLNESS: A 26-year-old man with a past history of injection drug use, he denies it recently. He has recurrent abscess in his lower extremities that comes and goes. This one devel oped in his right calf over the last few days and it started resolving started getting worse and worse. He came to the emergency room and he had a white blood cell count of 10,000. Dr. Tucker did a bedside debridement, obtained purulent material, sent for a specimen, Gram stain as noted abov e. The culture is pending. He has had no fevers, chills, or sweats. He has significant pain at th e site of the incision and debridement. PAST MEDICAL HISTORY: 1. Cutaneous abscess, multiple. 2. MRSA infection in the 9th grade. 3. Anxiety. 4. Depression. 5. Past injection drug use. MEDICATIONS: 1. Alprazolam p.r.n. 2. Celexa. 3. Enoxaparin. 4. Vancomycin. ALLERGIES: 1. PENICILLIN, unknown reaction as a child. 2. TYLENOL. 3. TRAMADOL. FAMILY HISTORY: No recurrent infections. SOCIAL HISTORY: He lives in [place] with his mother and step father. He has pets at home. No one else at home with skin abscesses. Past injection of Suboxone and heroin. REVIEW OF SYSTEMS: All negative to 14-point review of systems except as noted above. PHYSICAL EXAMINATION: Vital Signs: Temperature 37.4, heart rate 80, respiratory rate 18, blood pre ssure 90/50, O2 sat 100% on room air. In general, he is awake, not in distress. Neurologic: He is oriented x3, follows all commands. Moves all his extremities. He can flex and extend his right an kle. HEENT: There is no conjunctival hemorrhage. Oropharynx without lesions. Neck: Supple witho ut nuchal rigidity. Lymph Nodes: There is no inguinal, axillary or epitrochlear lymphadenopathy. Heart is regular rate and rhythm without murmurs, rubs or gallops. Lungs are clear to auscultation bilaterally. Abdomen: Soft, nontender, nondistended. Bowel sounds are present. Skin: There is n o rash or splinter hemorrhages. Musculoskeletal: Right calf, there is a 5 cm area of superficial s kin sloughing over superficial bulla with clear fluid. There is less than 1 cm incision draining pu rulent bloody fluid that is exquisitely tender. There is no crepitus or fluctuance. DIAGNOSTIC STUDIES/LAB DATA: Creatinine 0.7, CRP 130, white blood cell count 10, hemoglobin 11, mireya telets 197,000. Please see impressions and recommendations outlined above, which I have discussed wi th Dr. Garcia. Thank you for asking me to see Mr. Breen in consultation. [id number]/[id number] #: [id number]
[2017-07-30] MEDS: Docusate CAP* 100 MG PO SCH (12:43)
[2017-07-30] MEDS: Senna TAB PO SCH (12:43)
[2017-07-30] MEDS: HYDROmorphone INJ* 2 MG/ML CARPUJECT SYRINGE IV SLOW PU PRN (12:44)
--- NOTE | 2017-07-30 13:11 | RAD ---
Edited for charges. Indication: Right calf abscess. CT of the right calf was performed in the axial plane. Sagittal and coronal reconstructed images were obtained. No drainable fluid collections are noted. No evidence of subcutaneous or fascial air is noted. There is fluid collection with air in the posterior medial aspect of the catheter measuring approximately 13 mm x 13 mm AP x 10 mm in width. This may represent a small subcutaneous abscess with air. There is fluid tracking along the fascial surface surrounding the calf muscles. This is a nonspecific finding. No other drainable collections are noted. No intramuscular fluid collections are noted. IMPRESSION: There is a subcutaneous abscess in the mid calf measuring 13 mm with air. There is fluid tracking along the fascia of the calf muscles. This is nonspecific. Clinical correlation is suggested. No evidence of subcutaneous or fascial air is noted tracking along the fascial planes. MTDD
--- NOTE | 2017-07-30 14:33 | PN ---
Progress Note - Progress Note Date of Service: 07/30/17 Note: Brief surgery note: (full note dictated) S: asked to see this 26 yo male w/ hx of drug abuse and chronic pain and anxiety (on chronic po Dilaudid and Xanax) who underwent I&D of a Right LE abscess in the ED yesterday, which had been evolving for one week. He was admitted for IV abx and pain control. We were asked to see him for concern re: possible necrotizing fasciitis based on his level of pain. Of note, as of this a.m., he was only receiving Toradol prn for pain; his usual po narcotics had not been continued; they have since been ordered. Current Medications Alprazolam (Xanax Tab*) 2 mg PO TID PRN PRN Reason: ANXIETY Last Admin: 07/30/17 12:43 Dose: 2 mg Citalopram Hydrobromide (Celexa Tab*) 20 mg PO DAILY [facility] Last Admin: 07/30/17 08:52 Dose: 20 mg Docusate Sodium (Colace Cap*) 100 mg PO DAILY [facility] Last Admin: 07/30/17 12:43 Dose: 100 mg Enoxaparin Sodium (Lovenox(*)) 40 mg SUBCUT Q24H [facility] Last Admin: 07/29/17 19:53 Dose: 40 mg Hydromorphone HCl (Dilaudid Tab*) 2 mg PO Q6H PRN PRN Reason: PAIN Last Admin: 07/30/17 09:46 Dose: 2 mg Hydromorphone HCl (Dilaudid Inj*) 2 mg IV SLOW PU Q24H PRN PRN Reason: prior to packing change Last Admin: 07/30/17 12:44 Dose: 2 mg Sodium Chloride (Ns 0.9% 1000 Ml*) 1,000 mls @ 100 mls/hr IV PER RATE [facility] Last Admin: 07/29/17 20:00 Dose: 100 mls/hr Clindamycin HCl/Dextrose (Cleocin 600 Mg Ivpremix(*) Sdv) 600 mg in 50 mls @ 100 mls/hr IV Q8H [facility] Last Admin: 07/30/17 10:21 Dose: 100 mls/hr Ceftriaxone Sodium 2 gm/ (Sodium Chloride) 100 mls @ 200 mls/hr IVPB Q24H [facility] Last Admin: 07/30/17 08:53 Dose: 200 mls/hr Ketorolac Tromethamine (Toradol Tab *) 10 mg PO Q6H PRN PRN Reason: PAIN Stop: 08/03/17 18:26 Last Admin: 07/30/17 08:52 Dose: 10 mg Polyethylene Glycol/Electrolytes (Miralax*) 17 gm PO DAILY PRN PRN Reason: CONSTIPATION Senna (Senokot Tab*) 1 tab PO DAILY [facility] Last Admin: 07/30/17 12:43 Dose: 1 tab O: Vital Signs - 8 hr 07/30/17 07/30/17 07/30/17 08:00 08:19 08:53 Temperature 99.4 F Pulse Rate 82 Respiratory 16 18 17 Rate Blood Pressure 90/51 (mmHg) O2 Sat by Pulse 100 100 Oximetry 07/30/17 07/30/17 07/30/17 09:46 10:53 11:46 Temperature Pulse Rate Respiratory 16 16 15 Rate Blood Pressure (mmHg) O2 Sat by Pulse Oximetry 07/30/17 07/30/17 07/30/17 12:43 12:44 13:44 Temperature Pulse Rate Respiratory 16 16 20 Rate Blood Pressure (mmHg) O2 Sat by Pulse Oximetry 07/30/17 13:49 Temperature 98.1 F Pulse Rate 85 Respiratory 18 Rate Blood Pressure 110/61 (mmHg) O2 Sat by Pulse Oximetry Gen: WN, WD, in NAD Right LE: small, ~ 3 cm area of erythema and induration along medial aspect of distal thigh, nontender (patient states it has been about the same for 1 wk). In the mid lower leg there is copious purulent drainage on the dressing over the medial aspect. Packing is removed from an anterior wound. There is also a separate posterior wound ( by the anterior wound by 2-3 cm) also w/ copious drainage, but without packing. Both wounds were probed. The posterior wound probes in an inferior direction to a depth of ~ 5 cm. The more anterior wound probes 1-2 cms in all directions. They do not appear to directly communicate with each other at this point. After irrigation with NS, a single loop of 1/2" iodoform packing is placed. (patient was premedicated w/ Dilaudid 2 mg). He did have a moderate amount of pain during the process. CT: Indication: Right calf abscess. CT of the right calf was performed in the axial plane. Sagittal and coronal reconstructed images were obtained. No drainable fluid collections are noted. No evidence of subcutaneous or fascial air is noted. There is fluid collection with air in the posterior medial aspect of the catheter measuring approximately 13 mm x 13 mm AP x 10 mm in width. This may represent a small subcutaneous abscess with air. There is fluid tracking along the fascial surface surrounding the calf muscles. This is a nonspecific finding. No other drainable collections are noted. No intramuscular fluid collections are noted. IMPRESSION: There is a subcutaneous abscess in the mid calf measuring 13 mm with air. There is fluid tracking along the fascia of the calf muscles. This is nonspecific. Clinical correlation is suggested. No evidence of subcutaneous or fascial air is noted tracking along the fascial planes. SOURCE: LEG, RIGHT SPDESC: ORDERED: MRSA/SA SSTI, Culture & Stain COMMENTS: Comment: Right lower leg Verbal to [id number] by [id number] at 2024 on 07/29/17. Results read back accurately. Procedure Result Reported Site MRSA/S. aureus SSTI PCR Final 07/29/17- 2022 ML Organism 1 MRSA NEGATIVE Organism 2 S.AUREUS POSITIVE Wound/Misc Gram Stain Final 07/30/17- 0746 ML 4+ Neutrophils 1+ Epithelial Cells 4+ Gram Positive Cocci in Clusters, resembling Staph 3+ Gram Positive Cocci in Chains, resembling Strep 3+ Gram Positive Bacilli Possible 2+ Gram Negative Coccobacilli Wound/Misc Culture Preliminary 07/30/17- 1548 ML Organism 1 STAPHYLOCOCCUS AUREUS Quantity 2+ Organism 2 ENTEROCOCCUS FAECALIS Quantity 3+ * ML - MAIN LAB ([facility]) . A: Right LE absecss, C&S pend; no evidence of undrained collection or fasciitis P: abx per hospitalist/ID; will follow for wound care
[2017-07-30] MEDS ORDERED: Vancomycin Trough Check NOTE FOLLOW UP ONE (16:00)
[2017-07-30] MEDS: NS 0.9% 1000 ML* 1,000 ML IV SCH (16:07)
[2017-07-30] MEDS: HYDROmorphone TAB* 2 MG PO PRN ×2 (19:13→23:59)
[2017-07-30] MEDS: Bisacodyl SUPP* 10 MG SUPP PR PRN (19:37)
--- NOTE | 2017-07-30 19:51 | PN ---
Subjective Date of Service: 07/30/17 Interval History: Pt with packing change with Surgery. ID consult, now on clinda, ceftriaxone. CT right leg with abscess but no fascial air. Wanting IV diluadid instead of po dialudid. Objective Active Medications: Alprazolam (Xanax Tab*) 2 mg PO TID PRN PRN Reason: ANXIETY Last Admin: 07/30/17 12:43 Dose: 2 mg Bisacodyl (Dulcolax Supp*) 10 mg [place] DAILY PRN PRN Reason: CONSTIPATION Last Admin: 07/30/17 19:37 Dose: 10 mg Citalopram Hydrobromide (Celexa Tab*) 20 mg PO DAILY [facility] Last Admin: 07/30/17 08:52 Dose: 20 mg Docusate Sodium (Colace Cap*) 100 mg PO DAILY [facility] Last Admin: 07/30/17 12:43 Dose: 100 mg Enoxaparin Sodium (Lovenox(*)) 40 mg SUBCUT Q24H [facility] Last Admin: 07/29/17 19:53 Dose: 40 mg Hydromorphone HCl (Dilaudid Inj*) 2 mg IV SLOW PU Q24H PRN PRN Reason: prior to packing change Last Admin: 07/30/17 12:44 Dose: 2 mg Hydromorphone HCl (Dilaudid Tab*) 3 mg PO Q4H PRN PRN Reason: PAIN Last Admin: 07/30/17 19:13 Dose: 3 mg Sodium Chloride (Ns 0.9% 1000 Ml*) 1,000 mls @ 100 mls/hr IV PER RATE [facility] Last Admin: 07/30/17 16:07 Dose: 100 mls/hr Clindamycin HCl/Dextrose (Cleocin 600 Mg Ivpremix(*) Sdv) 600 mg in 50 mls @ 100 mls/hr IV Q8H [facility] Last Admin: 07/30/17 18:22 Dose: 100 mls/hr Ceftriaxone Sodium 2 gm/ (Sodium Chloride) 100 mls @ 200 mls/hr IVPB Q24H [facility] Last Admin: 07/30/17 08:53 Dose: 200 mls/hr Ketorolac Tromethamine (Toradol Tab *) 10 mg PO Q6H PRN PRN Reason: PAIN Stop: 08/03/17 18:26 Last Admin: 07/30/17 08:52 Dose: 10 mg Polyethylene Glycol/Electrolytes (Miralax*) 17 gm PO DAILY PRN PRN Reason: CONSTIPATION Quetiapine Fumarate (Seroquel Tab*) 200 mg PO BEDTIME [facility] Senna (Senokot Tab*) 1 tab PO DAILY [facility] Last Admin: 07/30/17 12:43 Dose: 1 tab Vital Signs 07/29/17 07/29/17 07/29/17 21:23 22:00 23:53 Temperature 98.1 F Pulse Rate 80 Respiratory 16 17 16 Rate Blood Pressure 94/50 (mmHg) O2 Sat by Pulse 98 Oximetry 07/30/17 07/30/17 07/30/17 00:34 03:47 08:00 Temperature 98.1 F Pulse Rate 73 Respiratory 16 16 Rate Blood Pressure 108/48 111/60 (mmHg) O2 Sat by Pulse 99 100 Oximetry 07/30/17 07/30/17 07/30/17 08:19 08:53 09:46 Temperature 99.4 F Pulse Rate 82 Respiratory 18 17 16 Rate Blood Pressure 90/51 (mmHg) O2 Sat by Pulse 100 Oximetry 07/30/17 07/30/17 07/30/17 10:53 11:46 12:43 Temperature Pulse Rate Respiratory 16 15 16 Rate Blood Pressure (mmHg) O2 Sat by Pulse Oximetry 07/30/17 07/30/17 07/30/17 12:44 13:44 13:49 Temperature 98.1 F Pulse Rate 85 Respiratory 16 20 18 Rate Blood Pressure 110/61 (mmHg) O2 Sat by Pulse Oximetry 07/30/17 07/30/17 14:43 19:13 Temperature Pulse Rate Respiratory 16 16 Rate Blood Pressure (mmHg) O2 Sat by Pulse Oximetry Oxygen Devices in Use Now: None Appearance: moderate discomfort fide with manipulation of leg Eyes: No Scleral Icterus, PERRLA Ears/Nose/Mouth/Throat: NL Teeth, Lips, Gums, Clear Oropharnyx Neck: NL Appearance and Movements; NL JVP, Trachea Midline Respiratory: Symmetrical Chest Expansion and Respiratory Effort, Clear to Auscultation Cardiovascular: NL Sounds; No Murmurs; No JVD, RRR, No Edema Abdominal: NL Sounds; No Tenderness; No Distention, No Hepatosplenomegaly Extremities: No Edema, No Clubbing, Cyanosis, - - right calf with two wounds with serosanguinous drainage and area of desquamination. Skin: - - right calf with two wounds with serosanguinous drainage and area of desquamination. Neurological: Alert and Oriented x 3, NL Sensation Result Diagrams: 07/29/17 16:37 07/29/17 16:37 Additional Lab and Data: Laboratory Results - last 24 hr 07/29/17 07/29/17 21:00 21:00 Urine Color Yellow Urine Appearance Clear Urine pH 6.0 Ur Specific [place] 1.019 Urine Protein Negative Urine Ketones Negative Urine Blood Negative Urine Nitrate Negative Urine Bilirubin Negative Urine Urobilinogen Negative Ur Leukocyte Esterase Negative Urine Glucose Negative Urine Ascorbic Acid * H Urine Opiates Screen None detected Ur Barbiturates Screen None detected Ur Phencyclidine Scrn None detected Ur Amphetamines Screen None detected U Benzodiazepines Scrn Presumptive positive H Urine Cocaine Screen None detected U Cannabinoids Screen None detected Microbiology and Other Data: Microbiology 07/29/17 22:13 Nasal Screen MRSA (PCR)([facility]ALO) - Final Nasal Mrsa Negative Assess/Plan/Problems-Billing Assessment: 26 year old male PMH IVDU and recurrent leg abscesses p/w with staph aureus ( not MRSA) right calf abscess. s/p I&D and packing change. On clinda, cftx. No fascial air on CT leg. - Patient Problems (1) Abscess of right lower leg Current Visit: Yes Status: Acute Code(s): L02.415 - CUTANEOUS ABSCESS OF RIGHT LOWER LIMB SNOMED Code(s): 182305527 Comment: Appreciate ID and surgical assistance. Packing changes daily with premedication. f/u Cultures (staph but not MRSA) clinda, ceftriaxone pain control with dilaudid 3mg po q4 prn with 2mg IV q24 prn for dressing changes. bowel regimen. add colace suppository (2) Insomnia Current Visit: Yes Status: Acute Code(s): G47.00 - INSOMNIA, UNSPECIFIED SNOMED Code(s): 989515969 Comment: pt brought in his med bottle for seroquel 200mg qhs, continue (3) Anxiety and depression Current Visit: Yes Status: Acute Code(s): F41.8 - OTHER SPECIFIED ANXIETY DISORDERS SNOMED Code(s): 082835071 Comment: continue home meds: seroquel 200mg qhs, citalopram 20mg qhs, ativan 2mg TID prn Status and Disposition: medicine inpatient. Anticipate d/c in ~3 days. Attending: Elliot Sharpe
[2017-07-30] MEDS: Enoxaparin(*) 40 MG/0.4 ML SYR SUBCUT SCH (20:07)
[2017-07-30] MEDS: QUEtiapine TAB* 100 MG PO SCH (20:30)
[2017-07-31] MEDS: Clindamycin 600 MG IVPREMIX(* 600 MG/50 ML SDV IV SCH ×2 (01:35→11:46)
[2017-07-31] MEDS: HYDROmorphone TAB* 2 MG PO PRN ×2 (04:33→09:45)
[2017-07-31] MEDS: Docusate CAP* 100 MG PO SCH (09:47)
[2017-07-31] MEDS: ALPRAZolam TAB* 0.5 MG PO PRN ×3 (09:47→21:00)
[2017-07-31] MEDS: Senna TAB PO SCH (09:47)
[2017-07-31] MEDS: Citalopram TAB* 20 MG PO SCH (09:48)
[2017-07-31] MEDS ORDERED: HYDROmorphone INJ* 2 MG/ML CARPUJECT SYRINGE IV SLOW PU ONE (11:22)
--- NOTE | 2017-07-31 11:33 | PN ---
Progress Note - Progress Note Date of Service: 07/31/17 SOAP: Subjective: CC: right leg abscess HPI: 26 year old man with R calf abscess for a few days; has multiple leg abscesses over the last couple of years. Pain 8/10, oral pain medicine not helping, only IV pain medicine helps. New area of pain and swelling on thigh. No fever, rash, or diarrhea, can move ankle and knee without pain. Objective: [] Vital Signs Temp 36.9 C 07/31/17 08:40 Pulse 77 07/31/17 08:40 Resp 14 07/31/17 09:47 BP 112/98 07/31/17 08:40 Pulse Ox 98 07/31/17 08:40 Intake & Output 07/30/17 07/31/17 07/31/17 18:59 06:59 18:59 Intake Total 240 0 Output Total 1700 Balance 240 -1700 Intake: Oral 240 0 Output: Urine 1700 Other: Estimated Void Medium # Bowel Movements 0 Estimated Stool Amount Medium # Voids 2 Gen:awake, no distress HEENT: no thrush Neck:supple Heart:RRR no murmur Lungs:CTA BL Abd:+BS NTND soft Skin: No rash MSK: R thigh 2 cm erythema with fluctuance; R calf incision w packing and diffuse edema mild erythema no crepitus; tender Microbiology 07/29/17 16:40 Blood Venous Aerobic Blood Culture - Final Staphylococcus Hominis 07/29/17 16:40 Blood Venous Anaerobic Blood Culture - Preliminary No Growth Day 1 07/29/17 16:40 Blood Venous Blood MRSA/MSSA (PCR) - Final Mrsa Negative S.aureus Negative 07/29/17 16:42 Leg Right Skin and Soft Tissue MRSA/MSSA (PCR - Final Mrsa Negative S.aureus Positive 07/29/17 16:42 Leg Right Gram Stain - Final 07/29/17 16:42 Leg Right Wound Culture - Preliminary Staphylococcus Aureus Enterococcus Faecalis 07/29/17 16:37 Blood Venous Aerobic Blood Culture - Preliminary No Growth Day 1 07/29/17 16:37 Blood Venous Anaerobic Blood Culture - Preliminary No Growth Day 1 CT 1.3 cm SQ abscess, no fasciitis Assessment: 1. MSSA R leg abscess, now with a new one 2. PCN allergy, tolerating ceftriaxone, no GNR growing 3. r/o immundeficiency Plan: 1. HIV Ab 2. change abx to ancef 3. Surgery to I&D new abscess and repack previous one 35 minutes floor time >50% face time in counseling regarding antibiotics, I&D, HIV testing for which he gives verbal consent.
[2017-07-31] MEDS: ceFAZolin 1 GM VIAL(*) 1 GM in NS 0.9% 50 ML* 50 ML IVPB SCH ×2 (12:40→19:55)
--- NOTE | 2017-07-31 15:00 | CONS ---
CC: Dr. Augustus Garcia; Dr. Isidro Levy * SURGICAL CONSULTATION NOTE: DATE OF CONSULT: 07/30/17 ATTENDING SURGEON: Dr. Augustus Garcia. (DICTATED BY JUAN PABLO MIRELES) CHIEF COMPLAINT: Right calf abscess; concern for necrotizing fasciitis. HISTORY OF PRESENT ILLNESS: This is a 26-year-old male with past history of IV drug abuse, chronic pain, and anxiety, who presented to the ED yesterday after a 1-week history of gradually increasing right calf pain and tenderness. Incision and drainage of an abscess was performed by Dr. Tucker, which per his report drained copious amounts of purulent material. C and S at this point is negative for MRSA by PCR but positive for Staph aureus. Patient is currently on ceftriaxone and clindamycin. He complaints of significant pain. Of note, at the time of my initial consult, the patient was not yet receiving his usual p.o. Dilaudid that he takes for maintenance therapy. He only had p.r.n. Toradol written. Subsequently, his usual oral regimen was reordered. Patient states that he has had multiple previous abscesses, primarily in the lower extremities. He denies self injecting these areas. He has a couple of wounds in the left lower extremity, which he states are improving. He has a separate area in the right distal thigh, which he states has remained stable over the past week and is currently nontender. His T- max in the emergency room is 100.3. His temperature since then have been decreasing. PHYSICAL EXAM: Temperature this morning 99.4. He has a couple of blood pressure readings that have been in the 90s systolic. General: Well-nourished , well- developed male, in no apparent distress. He appears comfortable lying in the bed. Exam is otherwise limited to the lower extremities. Both lower extremities show sequelae of previous soft tissue infections. There is a small dressing on the left medial calf, which I did not remove. There is minimal pain to palpation in the left with no erythema or swelling. On the right lower extremity, there is a small area measuring approximately 3 cm in the medial distal thigh with dull erythema and induration but no palpable tenderness or fluctuance. In the lower leg medial aspect, there is copious purulent drainage on the dressing, which is removed as well as on the packing, which enters the wound, towards the anteromedial aspect of calf. There also appears to be a separate wound somewhat posterior by skin bridge of 2 to 3 cm. Both wounds were explored with sterile Q-tip. The posterior wound tracking approximately 5 cm in a distal direction. The anterior wound tracks approximately 1 to 2 cm in all directions. There did not appear to be any undrained collections. There was small amount of superficial skin slough anterior and superior to the anterior wound, which I debrided sharply. There was no need for additional I and D. Both wounds were irrigated with normal saline and then repacked with a single loop of 1/2-inch Iodoform packing. He had been premedicated with 2 mg of Dilaudid IV but still had considerable pain during the packing change process. DIAGNOSTIC STUDIES/LAB DATA: His white blood cell count on admission was normal. Because of concern for necrotizing fasciitis, a CT scan had been obtained of the right lower extremity, which showed some subcutaneous air, but nothing to suggest undrained collection or fasciitis. Initial PCR on the wound drainage was negative for MRSA but positive for Staph aureus full culture and sensitivity is still pending. IMPRESSION: Right calf abscess; no present concern for necrotizing fasciitis or undrained collection. PLAN: Continue with antibiotics as prescribed by hospitalist and ID team. We will continue to follow for wound care. JUAN PABLO MIRELES [id number]/CPS #: [id number] ZAC
--- NOTE | 2017-07-31 15:39 | PN ---
Progress Note - Progress Note Date of Service: 07/31/17 SOAP: Subjective: Patient seen and examined this AM. Reports intermittent pain at I&D site on R calf, needs Dilaudid around the clock. No fever or chills. Denies chest pain or SOB. Noticed another abscess few inches above existing one on his R calf. Objective: Awake and alert, comfortable in bed, in NAD VSS, afebrile, Tmax 98.5 R calf with a moderate area of swelling and erythema, surrounding a two separate I&D incisions. No active bleeding or discharge noted. Pedal pulse intact. Distal lower R thigh with another abscess collection, approx. 3cm in diameter, with fluctuate middle portion and surrounding mild erythema and induration. Assessment: A 23 y/o male with RLE abscess, s/p I&D with packing. Plan: Will plan on continue wound care using 1/2 inch iodoform packing gauze. Continue IV antibiotics Pain management, hx drug addiction. Procedure Note: Discussed with patient proceeding with I&D of new abscess collection on his R thigh. Risks and benefits were discussed. Patient agreed to plans and consented to proceed. Area cleaned with Betadine swabs. Approx. 3-4cc of 1% plain Lidocaine were used to infiltrate skin. Using a #15 blade, A small incision was made, with immediate flux of purulent drainage noted. Wound was packed with 1/2 Iodoform gauze. patient tolerated procedure well. It is to be noted that patient was pre-medicated with 2mg Dilaudid. Packing from R calf prior I&D sites was removed. No active bleeding or discharge noted. A new 1/2 inch iodoform packing gauze was inserted and both areas were covered with 4x4 clean gauze and 4 inch Kerlex. Patient tolerated procedure well.
[2017-07-31] MEDS: HYDROmorphone TAB* 4 MG PO PRN ×2 (15:55→19:38)
[2017-07-31] MEDS ORDERED: ceFAZolin 1 GM VIAL(*) 1 GM in NS 0.9% 50 ML* 50 ML IVPB SCH (18:00)
--- NOTE | 2017-07-31 18:55 | PN ---
Subjective Date of Service: 07/31/17 Interval History: Further I&D of right thigh. Pt wanting IV dilaudid instead of po. Specifically denies IVDU to hands documented in chart January 2016 (H&P). Objective Active Medications: Alprazolam (Xanax Tab*) 2 mg PO TID PRN PRN Reason: ANXIETY Last Admin: 07/31/17 15:55 Dose: 2 mg Bisacodyl (Dulcolax Supp*) 10 mg [place] DAILY PRN PRN Reason: CONSTIPATION Last Admin: 07/30/17 19:37 Dose: 10 mg Citalopram Hydrobromide (Celexa Tab*) 20 mg PO DAILY [facility] Last Admin: 07/31/17 09:48 Dose: 20 mg Docusate Sodium (Colace Cap*) 100 mg PO DAILY [facility] Last Admin: 07/31/17 09:47 Dose: 100 mg Enoxaparin Sodium (Lovenox(*)) 40 mg SUBCUT Q24H [facility] Last Admin: 07/30/17 20:07 Dose: 40 mg Hydromorphone HCl (Dilaudid Inj*) 2 mg IV SLOW PU Q24H PRN PRN Reason: prior to packing change Last Admin: 07/30/17 12:44 Dose: 2 mg Hydromorphone HCl (Dilaudid Tab*) 4 mg PO Q3H PRN PRN Reason: PAIN Last Admin: 07/31/17 15:55 Dose: 4 mg Cefazolin Sodium 1 gm/ Sodium (Chloride) 50 mls @ 200 mls/hr IVPB Q8H [facility] Last Admin: 07/31/17 12:40 Dose: 200 mls/hr Ketorolac Tromethamine (Toradol Tab *) 10 mg PO Q6H PRN PRN Reason: PAIN Stop: 08/03/17 18:26 Last Admin: 07/30/17 20:06 Dose: 10 mg Polyethylene Glycol/Electrolytes (Miralax*) 17 gm PO DAILY PRN PRN Reason: CONSTIPATION Quetiapine Fumarate (Seroquel Tab*) 200 mg PO BEDTIME [facility] Last Admin: 07/30/17 20:30 Dose: 200 mg Senna (Senokot Tab*) 1 tab PO DAILY [facility] Last Admin: 07/31/17 09:47 Dose: 1 tab Vital Signs 07/31/17 07/31/1717 09:45 09:47 11:45 Temperature Pulse Rate Respiratory 14 14 14 Rate Blood Pressure (mmHg) O2 Sat by Pulse Oximetry 07/31/17 07/31/17 07/31/17 11:47 12:04 12:28 Temperature 98.5 F Pulse Rate 76 Respiratory 14 16 Rate Blood Pressure 115/45 (mmHg) O2 Sat by Pulse 98 Oximetry 07/31/17 07/31/17 07/31/17 13:04 13:36 13:37 Temperature 98.5 F Pulse Rate 73 Respiratory 14 14 14 Rate Blood Pressure 115/45 (mmHg) O2 Sat by Pulse Oximetry 07/31/17 15:55 Temperature Pulse Rate Respiratory 14 Rate Blood Pressure (mmHg) O2 Sat by Pulse Oximetry Oxygen Devices in Use Now: None Appearance: no acute distress Eyes: No Scleral Icterus, PERRLA Ears/Nose/Mouth/Throat: NL Teeth, Lips, Gums, Mucous Membranes Moist Neck: NL Appearance and Movements; NL JVP Respiratory: Symmetrical Chest Expansion and Respiratory Effort, Clear to Auscultation Cardiovascular: NL Sounds; No Murmurs; No JVD, RRR Abdominal: NL Sounds; No Tenderness; No Distention, No Hepatosplenomegaly Extremities: - - right leg with gauze wrapping no strike thru, both above anterior/knee and medial calf Skin: No Rash or Ulcers Neurological: Alert and Oriented x 3, NL Muscle Strength and Tone Result Diagrams: 07/29/17 16:37 07/29/17 16:37 Additional Lab and Data: Microbiology and Other Data: Microbiology 07/29/17 16:37 Aerobic Blood Culture - Preliminary Blood Venous No Growth Day 2 Anaerobic Blood Culture - Preliminary No Growth Day 2 07/29/17 16:40 Aerobic Blood Culture - Final Blood Venous Staphylococcus Hominis Anaerobic Blood Culture - Preliminary No Growth Day 2 Blood Culture - Final Blood MRSA/MSSA (PCR) - Final Mrsa Negative S.aureus Negative 07/29/17 16:42 Skin and Soft Tissue MRSA/MSSA (PCR - Final Leg Right Mrsa Negative S.aureus Positive Gram Stain - Final Wound Culture - Preliminary Staphylococcus Aureus Enterococcus Faecalis Streptococcus Constellatus Assess/Plan/Problems-Billing Assessment: 26 year old male PMH IVDU and recurrent leg abscesses p/w with staph aureus ( not MRSA), E Faecalis, Strep constellatus right calf and thigh abscess. s/p I& Dx2 and daily packing changes. s/pclinda, cftx now ancef. No fascial air on CT leg. - Patient Problems (1) Abscess of right lower leg Current Visit: Yes Status: Acute Code(s): L02.415 - CUTANEOUS ABSCESS OF RIGHT LOWER LIMB SNOMED Code(s): 507957614 Comment: Appreciate ID and surgical assistance. Packing changes daily with premedication. f/u Cultures sensitivies (Staph Aureus(not MRSA), E Faecalis, Strep Constellatus s/p clinda, ceftriaxone -> now Ancef Increase to dilaudid 4mg q3 prn from 3mg po q4 with 2mg IV q24 prn for dressing changes. Will not give him IV otherwise given likely current IVDU. bowel regimen. continue colace suppository. had 1 07/30 (2) Insomnia Current Visit: Yes Status: Acute Code(s): G47.00 - INSOMNIA, UNSPECIFIED SNOMED Code(s): 889681922 Comment: pt brought in his med bottle for seroquel 200mg qhs, continue (3) Anxiety and depression Current Visit: Yes Status: Acute Code(s): F41.8 - OTHER SPECIFIED ANXIETY DISORDERS SNOMED Code(s): 691021910 Comment: continue home meds: seroquel 200mg qhs, citalopram 20mg qhs, ativan 2mg TID prn Status and Disposition: medicine inpatient. Anticipate d/c in 2-3 days. Attending: Elliot Sharpe
[2017-07-31] MEDS: Bisacodyl SUPP* 10 MG SUPP PR PRN (19:39)
[2017-07-31] MEDS: Enoxaparin(*) 40 MG/0.4 ML SYR SUBCUT SCH (19:55)
[2017-07-31] MEDS: QUEtiapine TAB* 100 MG PO SCH (19:56)
[2017-08-01] MEDS: HYDROmorphone TAB* 4 MG PO PRN ×7 (01:39→21:48)
[2017-08-01] MEDS: ceFAZolin 1 GM VIAL(*) 1 GM in NS 0.9% 50 ML* 50 ML IVPB SCH ×3 (04:09→20:16)
[2017-08-01] MEDS: Citalopram TAB* 20 MG PO SCH (08:33)
[2017-08-01] MEDS: ALPRAZolam TAB* 0.5 MG PO PRN ×3 (08:33→21:21)
[2017-08-01] MEDS: Senna TAB PO SCH (08:33)
[2017-08-01] MEDS: Docusate CAP* 100 MG PO SCH (08:33)
[2017-08-01] MEDS: HYDROmorphone INJ* 2 MG/ML CARPUJECT SYRINGE IV SLOW PU PRN (13:22)
--- NOTE | 2017-08-01 13:44 | PN ---
Progress Note - Progress Note Date of Service: 08/01/17 SOAP: Subjective: [Pt seen and chart reviewed Pt feeling better; he is able to ambulate better Objective: af vss RLE: packing removed x2 and changed. dull redness at calf drainage redness purulent drainage at thigh I and D site Cs noted Assessment: Recurrent Subq abscesses likely 2ary to IVDA, although pt denies. Possibility of persistent scratching and psychiatric disorder as etiology Plan: abx packing change daily while in hospital, QOD at discharge
--- NOTE | 2017-08-01 17:20 | PN ---
Subjective Date of Service: 08/01/17 Interval History: Pain better controlled. repeat I&D at bedside. Able to walk/stand. Objective Active Medications: Alprazolam (Xanax Tab*) 2 mg PO TID PRN PRN Reason: ANXIETY Last Admin: 08/01/17 17:01 Dose: 2 mg Bisacodyl (Dulcolax Supp*) 10 mg AL DAILY PRN PRN Reason: CONSTIPATION Last Admin: 07/31/17 19:39 Dose: 10 mg Citalopram Hydrobromide (Celexa Tab*) 20 mg PO DAILY [facility] Last Admin: 08/01/17 08:33 Dose: 20 mg Docusate Sodium (Colace Cap*) 100 mg PO DAILY [facility] Last Admin: 08/01/17 08:33 Dose: 100 mg Enoxaparin Sodium (Lovenox(*)) 40 mg SUBCUT Q24H [facility] Last Admin: 07/31/17 19:55 Dose: 40 mg Hydromorphone HCl (Dilaudid Inj*) 2 mg IV SLOW PU Q24H PRN PRN Reason: prior to packing change Last Admin: 08/01/17 13:22 Dose: 2 mg Hydromorphone HCl (Dilaudid Tab*) 4 mg PO Q3H PRN PRN Reason: PAIN Last Admin: 08/01/17 15:47 Dose: 4 mg Cefazolin Sodium 1 gm/ Sodium (Chloride) 50 mls @ 200 mls/hr IVPB Q8H [facility] Last Admin: 08/01/17 12:02 Dose: 200 mls/hr Ketorolac Tromethamine (Toradol Tab *) 10 mg PO Q6H PRN PRN Reason: PAIN Stop: 08/03/17 18:26 Last Admin: 07/30/17 20:06 Dose: 10 mg Polyethylene Glycol/Electrolytes (Miralax*) 17 gm PO DAILY PRN PRN Reason: CONSTIPATION Quetiapine Fumarate (Seroquel Tab*) 200 mg PO BEDTIME [facility] Last Admin: 07/31/17 19:56 Dose: 200 mg Senna (Senokot Tab*) 1 tab PO DAILY [facility] Last Admin: 08/01/17 08:33 Dose: 1 tab Vital Signs 07/31/17 07/31/17 07/31/17 19:07 19:38 19:55 Temperature 98.0 F Pulse Rate 91 Respiratory 16 18 16 Rate Blood Pressure 105/32 (mmHg) O2 Sat by Pulse 99 Oximetry 07/31/17 07/31/17 07/31/17 20:00 21:00 21:38 Temperature Pulse Rate Respiratory 18 16 16 Rate Blood Pressure (mmHg) O2 Sat by Pulse Oximetry 07/31/17 08/01/17 08/01/17 23:00 01:39 03:39 Temperature Pulse Rate Respiratory 16 18 16 Rate Blood Pressure (mmHg) O2 Sat by Pulse Oximetry 08/01/17 08/01/17 08/01/17 04:51 06:17 07:51 Temperature 97.8 F 98.0 F Pulse Rate 80 70 Respiratory 16 16 14 Rate Blood Pressure 132/56 122/68 (mmHg) O2 Sat by Pulse 96 98 Oximetry 08/01/17 08/01/17 08/01/17 08:00 08:17 08:33 Temperature Pulse Rate Respiratory 16 16 16 Rate Blood Pressure (mmHg) O2 Sat by Pulse Oximetry 08/01/17 08/01/17 08/01/17 09:43 11:43 12:35 Temperature 98.1 F Pulse Rate 87 Respiratory 16 16 12 Rate Blood Pressure 134/84 (mmHg) O2 Sat by Pulse 100 Oximetry 08/01/17 08/01/17 08/01/17 12:45 13:22 14:45 Temperature Pulse Rate Respiratory 16 16 14 Rate Blood Pressure (mmHg) O2 Sat by Pulse Oximetry 08/01/17 08/01/17 08/01/17 15:29 15:47 17:01 Temperature 97.9 F Pulse Rate 76 Respiratory 20 18 16 Rate Blood Pressure 119/67 (mmHg) O2 Sat by Pulse 99 Oximetry Oxygen Devices in Use Now: None Appearance: no acute distress (except with wound packing change). Eyes: No Scleral Icterus, PERRLA Respiratory: Symmetrical Chest Expansion and Respiratory Effort, Clear to Auscultation Cardiovascular: NL Sounds; No Murmurs; No JVD, RRR Extremities: No Edema, - - s/p I&D above right knee and two sites on right anterior calf (no communication). minimal purulence strike thru on calf. Not tender Skin: - - as above Neurological: Alert and Oriented x 3, NL Muscle Strength and Tone Result Diagrams: 07/29/17 16:37 07/29/17 16:37 Additional Lab and Data: Microbiology and Other Data: Microbiology 07/29/17 16:37 Aerobic Blood Culture - Preliminary Blood Venous No Growth Day 2 Anaerobic Blood Culture - Preliminary No Growth Day 2 07/29/17 16:40 Aerobic Blood Culture - Final Blood Venous Staphylococcus Hominis Anaerobic Blood Culture - Preliminary No Growth Day 2 Blood Culture - Final Blood MRSA/MSSA (PCR) - Final Mrsa Negative S.aureus Negative 07/29/17 16:42 Skin and Soft Tissue MRSA/MSSA (PCR - Final Leg Right Mrsa Negative S.aureus Positive Gram Stain - Final Wound Culture - Preliminary Staphylococcus Aureus Enterococcus Faecalis Streptococcus Constellatus Assess/Plan/Problems-Billing Assessment: 26 year old male PMH IVDU and recurrent leg abscesses p/w with staph aureus ( not MRSA), E Faecalis, Strep constellatus right calf and thigh abscess. s/p I& Dx2 and daily packing changes. s/p clinda, cftx now ancef. No fascial air on CT leg. Planned d/c 08/02. - Patient Problems (1) Abscess of right lower leg Current Visit: Yes Status: Acute Code(s): L02.415 - CUTANEOUS ABSCESS OF RIGHT LOWER LIMB SNOMED Code(s): 628494480 Comment: Appreciate ID and surgical assistance. Packing changes daily with premedication. Staph Aureus(not MRSA) sens to ancef , E Faecalis, Strep Constellatus s/p clinda, ceftriaxone -> now Ancef Continue po dilaudid 4mg q3 prn which is well controlled. Continue 2mg IV q24 prn for dressing changes. Will not give him IV otherwise given likely current IVDU. bowel regimen. continue colace suppository. had 1 bm 07/30 and today. (2) Insomnia Current Visit: Yes Status: Acute Code(s): G47.00 - INSOMNIA, UNSPECIFIED SNOMED Code(s): 634362859 Comment: pt brought in his med bottle for seroquel 200mg qhs, continue (3) Anxiety and depression Current Visit: Yes Status: Acute Code(s): F41.8 - OTHER SPECIFIED ANXIETY DISORDERS SNOMED Code(s): 717258616 Comment: continue home meds: seroquel 200mg qhs, citalopram 20mg qhs, ativan 2mg TID prn Status and Disposition: medicine inpatient. Anticipate d/c on 08/02 Attending: Elliot Sharpe
[2017-08-01] MEDS: Enoxaparin(*) 40 MG/0.4 ML SYR SUBCUT SCH (20:17)
[2017-08-01] MEDS: QUEtiapine TAB* 100 MG PO SCH (20:17)
[2017-08-02] MEDS: HYDROmorphone TAB* 4 MG PO PRN ×7 (03:48→22:31)
[2017-08-02] MEDS: ceFAZolin 1 GM VIAL(*) 1 GM in NS 0.9% 50 ML* 50 ML IVPB SCH ×3 (03:48→19:31)
[2017-08-02] MEDS: ALPRAZolam TAB* 0.5 MG PO PRN ×3 (08:05→21:03)
[2017-08-02] MEDS: Docusate CAP* 100 MG PO SCH (08:05)
[2017-08-02] MEDS: Citalopram TAB* 20 MG PO SCH (08:05)
[2017-08-02] MEDS: Senna TAB PO SCH (08:05)
[2017-08-02 10:12] LABS: Mean Platelet Volume 8 um3 (7.4-10.4)
[2017-08-02 10:14] LABS: Comments Flag Yes; Hematocrit 34 % (42-52); Hemoglobin 11.2 g/dl (14.0-18.0); Mean Corpuscular HGB Conc 33 g/dl (31-36); Mean Corpuscular Hemoglobin 27 pg (27-31); Mean Corpuscular Volume 81 fL (80-94); Red Cell Distribution Width 16 % (10.5-15); White Blood Count 7.9 10^3/ul (3.5-10.8)
[2017-08-02 10:23] LABS: BUN/Creatinine Ratio 11.7 (8-20); Calcium 8.8 mg/dL (8.6-10.3); EGFR African American 159.6 (>60); EGFR Non-African American 124.1 (>60); Potassium 3.9 mmol/L (3.5-5.0)
[2017-08-02] MEDS: HYDROmorphone INJ* 2 MG/ML CARPUJECT SYRINGE IV SLOW PU PRN (13:46)
--- NOTE | 2017-08-02 14:33 | PN ---
Progress Note - Progress Note Date of Service: 08/02/17 SOAP: Subjective: Pt feeling "the same", he is able to ambulate better, but wants a cane. Objective: af vss RLE: packing removed x2 and changed. dull redness at calf drainage- marked with skin marker by me today redness purulent drainage at thigh I and D site Assessment: Recurrent Subq abscesses likely 2ary to IVDA, although pt denies. Possibility of persistent scratching and psychiatric disorder as etiology Plan: abx packing change daily while in hospital, QOD at discharge
[2017-08-02] MEDS: Linezolid TAB* 600 MG PO SCH (18:23)
--- NOTE | 2017-08-02 18:26 | PN ---
Subjective Date of Service: 08/02/17 Interval History: Packing with Dr. Sandoval again. Pt this afternoon then noticed area of tender erythema on right flank. Linezolid added to cover Enterococcus Faecalis and potential MRSA (there is suspicion of track donya near this new abscesses). Objective Active Medications: Alprazolam (Xanax Tab*) 2 mg PO TID PRN PRN Reason: ANXIETY Last Admin: 08/02/17 15:11 Dose: 2 mg Bisacodyl (Dulcolax Supp*) 10 mg SD DAILY PRN PRN Reason: CONSTIPATION Last Admin: 07/31/17 19:39 Dose: 10 mg Docusate Sodium (Colace Cap*) 100 mg PO DAILY [facility] Last Admin: 08/02/17 08:05 Dose: 100 mg Enoxaparin Sodium (Lovenox(*)) 40 mg SUBCUT Q24H [facility] Last Admin: 08/01/17 20:17 Dose: 40 mg Hydromorphone HCl (Dilaudid Inj*) 2 mg IV SLOW PU Q24H PRN PRN Reason: prior to packing change Last Admin: 08/02/17 13:46 Dose: 2 mg Hydromorphone HCl (Dilaudid Tab*) 4 mg PO Q3H PRN PRN Reason: PAIN Last Admin: 08/02/17 16:13 Dose: 4 mg Cefazolin Sodium 1 gm/ Sodium (Chloride) 50 mls @ 200 mls/hr IVPB Q8H [facility] Last Admin: 08/02/17 12:02 Dose: 200 mls/hr Ketorolac Tromethamine (Toradol Tab *) 10 mg PO Q6H PRN PRN Reason: PAIN Stop: 08/03/17 18:26 Last Admin: 07/30/17 20:06 Dose: 10 mg Linezolid (Zyvox Tab*) 600 mg PO Q12H [facility] Polyethylene Glycol/Electrolytes (Miralax*) 17 gm PO DAILY PRN PRN Reason: CONSTIPATION Quetiapine Fumarate (Seroquel Tab*) 200 mg PO BEDTIME [facility] Last Admin: 08/01/17 20:17 Dose: 200 mg Senna (Senokot Tab*) 1 tab PO DAILY [facility] Last Admin: 08/02/17 08:05 Dose: 1 tab Vital Signs 08/01/17 08/01/17 08/01/17 18:45 19:46 20:00 Temperature 98.3 F Pulse Rate 92 Respiratory 16 20 16 Rate Blood Pressure 115/77 (mmHg) O2 Sat by Pulse 98 Oximetry 08/01/17 08/01/17 08/01/17 20:45 21:21 21:48 Temperature Pulse Rate Respiratory 16 16 16 Rate Blood Pressure (mmHg) O2 Sat by Pulse Oximetry 08/01/17 08/01/17 08/01/17 23:21 23:36 23:48 Temperature 97.9 F Pulse Rate 69 Respiratory 16 16 16 Rate Blood Pressure 116/37 (mmHg) O2 Sat by Pulse 96 Oximetry 08/02/17 08/02/17 08/02/17 03:48 05:48 06:51 Temperature 97.9 F Pulse Rate 88 Respiratory 16 16 16 Rate Blood Pressure 112/66 (mmHg) O2 Sat by Pulse 97 Oximetry 08/02/17 08/02/17 08/02/17 07:59 08:00 08:05 Temperature 98.7 F Pulse Rate 84 Respiratory 12 16 16 Rate Blood Pressure 109/64 (mmHg) O2 Sat by Pulse 98 Oximetry 08/02/17 08/02/17 08/02/17 08:51 10:01 11:40 Temperature 98.2 F Pulse Rate 63 Respiratory 16 18 12 Rate Blood Pressure 93/55 (mmHg) O2 Sat by Pulse 96 Oximetry 08/02/17 08/02/17 08/02/17 12:01 13:05 13:46 Temperature Pulse Rate Respiratory 16 16 18 Rate Blood Pressure (mmHg) O2 Sat by Pulse Oximetry 08/02/17 08/02/17 08/02/17 14:49 15:11 15:54 Temperature 97.9 F Pulse Rate 84 Respiratory 18 16 24 Rate Blood Pressure 117/68 (mmHg) O2 Sat by Pulse 97 Oximetry 08/02/17 16:13 Temperature Pulse Rate Respiratory 16 Rate Blood Pressure (mmHg) O2 Sat by Pulse Oximetry Oxygen Devices in Use Now: None Appearance: no acute distress. Eyes: No Scleral Icterus, PERRLA Ears/Nose/Mouth/Throat: NL Teeth, Lips, Gums, Mucous Membranes Moist Neck: NL Appearance and Movements; NL JVP Respiratory: Symmetrical Chest Expansion and Respiratory Effort, Clear to Auscultation Cardiovascular: NL Sounds; No Murmurs; No JVD, RRR Extremities: No Edema Skin: No Rash or Ulcers, No Nodules or Sclerosis, - - erythema, some induration and tenderness ~4cm wide right flank. Neurological: Alert and Oriented x 3, NL Muscle Strength and Tone Result Diagrams: 08/02/17 09:45 08/02/17 09:45 Additional Lab and Data: Laboratory Results - last 24 hr 08/02/17 08/02/17 09:45 09:45 WBC 7.9 RBC 4.20 Hgb 11.2 L Hct 34 L MCV 81 MCH 27 MCHC 33 RDW 16 H Plt Count 275 MPV 8 Neut % (Auto) 71.0 Lymph % (Auto) 19.5 L [place] % (Auto) 6.8 Eos % (Auto) 2.3 Baso % (Auto) 0.4 Absolute Neuts (auto) 5.6 Absolute Lymphs (auto) 1.5 Absolute Monos (auto) 0.5 Absolute Eos (auto) 0.2 Absolute Basos (auto) 0 Absolute Nucleated RBC 0 Nucleated RBC % 0 Sodium 137 Potassium 3.9 Chloride 101 Carbon Dioxide 31 Anion Gap 5 BUN 9 Creatinine 0.77 Est GFR ( Amer) 159.6 Est GFR (Non-Af Amer) 124.1 BUN/Creatinine Ratio 11.7 Glucose 98 Calcium 8.8 Microbiology and Other Data: Microbiology 07/29/17 16:37 Aerobic Blood Culture - Preliminary Blood Venous No Growth Day 4 Anaerobic Blood Culture - Preliminary No Growth Day 4 Blood Culture - Final 07/29/17 16:40 Aerobic Blood Culture - Final Blood Venous Staphylococcus Hominis Anaerobic Blood Culture - Preliminary No Growth Day 4 Blood Culture - Final Blood MRSA/MSSA (PCR) - Final Mrsa Negative S.aureus Negative 07/29/17 16:42 Skin and Soft Tissue MRSA/MSSA (PCR - Final Leg Right Mrsa Negative S.aureus Positive Gram Stain - Final Wound Culture - Final Staphylococcus Aureus Enterococcus Faecalis Streptococcus Constellatus Assess/Plan/Problems-Billing Assessment: 26 year old male PMH IVDU and recurrent leg abscesses p/w with staph aureus ( not MRSA), E Faecalis, Strep constellatus right calf and thigh abscess. s/p I& Dx2 and daily packing changes. s/p clinda, cftx now ancef and adding po linezolid to cover E Faecalis and potential MRSA given development of new abscess on right flank. - Patient Problems (1) Abscess of right lower leg Current Visit: Yes Status: Acute Code(s): L02.415 - CUTANEOUS ABSCESS OF RIGHT LOWER LIMB SNOMED Code(s): 996159805 Comment: Appreciate ID and surgical assistance. Packing changes daily with premedication. Staph Aureus(not MRSA) sens to ancef , E Faecalis, Strep Constellatus s/p clinda, ceftriaxone -> now Ancef and adding linezolid po 600mg q12 08/02 to conver E Faecalis and potential MRSA. Other alternatives are levaquin (but on 2 QTc prolonging psych meds already, vs vanc vs ampicillin(pcn allergy) Continue po dilaudid 4mg q3 prn which is well controlled. Continue 2mg IV q24 prn for dressing changes. Will not give him IV otherwise given likely current IVDU. bowel regimen. continue colace suppository. has been stooling (2) Insomnia Current Visit: Yes Status: Acute Code(s): G47.00 - INSOMNIA, UNSPECIFIED SNOMED Code(s): 452517725 Comment: pt brought in his med bottle for seroquel 200mg qhs, continue (3) Anxiety and depression Current Visit: Yes Status: Acute Code(s): F41.8 - OTHER SPECIFIED ANXIETY DISORDERS SNOMED Code(s): 369834863 Comment: continue home meds: seroquel 200mg qhs, , ativan 2mg TID prn stop citalopram 20mg qhs 08/02 (given potential interaction with linezolid which is being added) Status and Disposition: medicine inpatient. Attending: Elliot Sharpe
[2017-08-02] MEDS: Enoxaparin(*) 40 MG/0.4 ML SYR SUBCUT SCH (19:31)
[2017-08-02] MEDS: QUEtiapine TAB* 100 MG PO SCH (21:03)
[2017-08-03] MEDS: ceFAZolin 1 GM VIAL(*) 1 GM in NS 0.9% 50 ML* 50 ML IVPB SCH ×3 (03:17→19:40)
[2017-08-03] MEDS: HYDROmorphone TAB* 4 MG PO PRN ×6 (03:17→20:25)
[2017-08-03] MEDS: Linezolid TAB* 600 MG PO SCH (06:06)
[2017-08-03] MEDS: Senna TAB PO SCH (07:44)
[2017-08-03] MEDS: Docusate CAP* 100 MG PO SCH (07:44)
[2017-08-03] MEDS: ALPRAZolam TAB* 0.5 MG PO PRN ×2 (09:11→21:34)
--- NOTE | 2017-08-03 10:00 | PN ---
Progress Note - Progress Note Date of Service: 08/03/17 SOAP: Subjective: CC: right leg abscess HPI: 26 year old man with R calf abscess for a few days; has multiple leg abscesses over the last couple of years.Since coming here a second one on more proximal lower leg developed and was I&D and now has one over R upper leg/lower abdomen. Painful and red. No fever or diarrhea. Objective: [] Vital Signs Temp 36.6 C 08/03/17 07:32 Pulse 80 08/03/17 07:32 Resp 16 08/03/17 09:11 BP 103/65 08/03/17 07:32 Pulse Ox 99 08/03/17 07:32 Intake & Output 08/02/17 08/03/17 08/03/17 18:59 06:59 18:59 Intake Total 2121 1068 Balance 2121 1068 Intake: IV Fluids 52 564 ABX - CEFAZOLIN 52 NS (0.9%) 564 IVPB 281 ABX - CEFAZOLIN 281 Oral 2070 223 Other: # Bowel Movements 0 # Voids 0 1 Gen:awake, no thrush HEENT: no thrush Neck:supple Heart:RRR no murmur Lungs:CTA BL Abd:+BS NTND soft Skin: No rash MSK: R thigh prox leg 3 cm erythema, induration, tenderness; R leg 2 areas of mild induration, scant serous drainage Laboratory Results - last 24 hr 08/02/17 08/02/17 09:45 09:45 WBC 7.9 RBC 4.20 Hgb 11.2 L Hct 34 L MCV 81 MCH 27 MCHC 33 RDW 16 H Plt Count 275 MPV 8 Neut % (Auto) 71.0 Lymph % (Auto) 19.5 L [place] % (Auto) 6.8 Eos % (Auto) 2.3 Baso % (Auto) 0.4 Absolute Neuts (auto) 5.6 Absolute Lymphs (auto) 1.5 Absolute Monos (auto) 0.5 Absolute Eos (auto) 0.2 Absolute Basos (auto) 0 Absolute Nucleated RBC 0 Nucleated RBC % 0 Sodium 137 Potassium 3.9 Chloride 101 Carbon Dioxide 31 Anion Gap 5 BUN 9 Creatinine 0.77 Est GFR ( Amer) 159.6 Est GFR (Non-Af Amer) 124.1 BUN/Creatinine Ratio 11.7 Glucose 98 Calcium 8.8 Assessment: 1. MSSA R leg abscess new ones developing ?ongoing skin barrier disruption. Enterococcus not usually pathogenic in skin infection. 2. PCN allergy, tolerating ceftriaxone, 3. r/o immundeficiency Plan: 1. HIV Ab 2. ancef Q8hrs 3. hibiclens wash daily Discussed with Shawna Mckeon NP
--- NOTE | 2017-08-03 13:21 | PN ---
Subjective Date of Service: 08/03/17 Interval History: Patient seen and examined at bedside. Denies fever, chills, shortness of breath , chest discomfort, N/V/D. Pt states that a new spot has started on his right side. Family History: Unchanged from Admission Social History: Unchanged from Admission Past Medical History: Unchanged from Admission Objective Active Medications: Alprazolam (Xanax Tab*) 2 mg PO TID PRN Reason: ANXIETY Bisacodyl (Dulcolax Supp*) 10 mg AL DAILY PRN Reason: CONSTIPATION Docusate Sodium (Colace Cap*) 100 mg PO DAILY [facility] Enoxaparin Sodium (Lovenox(*)) 40 mg SUBCUT Q24H [facility] Hydromorphone HCl (Dilaudid Inj*) 2 mg IV SLOW PU Q24H PRN Reason: prior to packing change Hydromorphone HCl (Dilaudid Tab*) 4 mg PO Q3H PRN Reason: PAIN Cefazolin Sodium 1 gm/ Sodium (Chloride) 50 mls @ 200 mls/hr IVPB Q8H [facility] Ketorolac Tromethamine (Toradol Tab *) 10 mg PO Q6H PRN Reason: PAIN Stop: 08/03/17 18:26 Polyethylene Glycol/Electrolytes (Miralax*) 17 gm PO DAILY PRN Reason: CONSTIPATION Quetiapine Fumarate (Seroquel Tab*) 200 mg PO BEDTIME [facility] Senna (Senokot Tab*) 1 tab PO DAILY [facility] Vital Signs 08/02/17 08/02/17 08/02/17 15:54 16:13 18:13 Temperature 97.9 F Pulse Rate 84 Respiratory 24 16 16 Rate Blood Pressure 117/68 (mmHg) O2 Sat by Pulse 97 Oximetry 08/02/17 08/02/17 08/02/17 19:31 19:39 20:07 Temperature 98.1 F Pulse Rate 97 Respiratory 16 18 18 Rate Blood Pressure 124/77 (mmHg) O2 Sat by Pulse 96 Oximetry 08/02/17 08/02/17 08/03/17 23:03 23:36 00:31 Temperature 98.1 F Pulse Rate 91 Respiratory 14 16 14 Rate Blood Pressure 113/68 (mmHg) O2 Sat by Pulse 95 Oximetry 08/03/17 08/03/17 08/03/17 03:06 03:17 05:17 Temperature 97.7 F Pulse Rate 82 Respiratory 16 14 12 Rate Blood Pressure 114/31 (mmHg) O2 Sat by Pulse 97 Oximetry 08/03/17 08/03/17 08/03/17 07:32 07:44 08:57 Temperature 97.8 F Pulse Rate 80 Respiratory 18 18 16 Rate Blood Pressure 103/65 (mmHg) O2 Sat by Pulse 99 Oximetry 08/03/17 08/03/17 08/03/17 11:10 11:54 11:57 Temperature 98.2 F Pulse Rate 93 Respiratory 16 16 18 Rate Blood Pressure 108/64 (mmHg) O2 Sat by Pulse 97 Oximetry Oxygen Devices in Use Now: None Appearance: NAD, sitting up in bed Ears/Nose/Mouth/Throat: Mucous Membranes Moist Respiratory: Symmetrical Chest Expansion and Respiratory Effort, Clear to Auscultation Cardiovascular: NL Sounds; No Murmurs; No JVD, RRR Abdominal: NL Sounds; No Tenderness; No Distention Extremities: No Edema Skin: - - Dressing to right calf and thigh clean, dry and intact. Right flank with erythema, induration, and renderness ~ 7.5 x 4.5 cm Neurological: Alert and Oriented x 3, NL Muscle Strength and Tone Lines/Tubes/Other Access: Clean, Dry and Intact Peripheral IV - site benign Nutrition: Taking PO's Result Diagrams: 08/02/17 09:45 08/02/17 09:45 Additional Lab and Data: Microbiology and Other Data: Microbiology 07/29/17 16:37 Aerobic Blood Culture - Preliminary Blood Venous No Growth Day 4 Anaerobic Blood Culture - Preliminary No Growth Day 4 Blood Culture - Final 07/29/17 16:40 Aerobic Blood Culture - Final Blood Venous Staphylococcus Hominis Anaerobic Blood Culture - Preliminary No Growth Day 4 Blood Culture - Final Blood MRSA/MSSA (PCR) - Final Mrsa Negative S.aureus Negative 07/29/17 16:42 Skin and Soft Tissue MRSA/MSSA (PCR - Final Leg Right Mrsa Negative S.aureus Positive Gram Stain - Final Wound Culture - Final Staphylococcus Aureus Enterococcus Faecalis Streptococcus Constellatus Assess/Plan/Problems-Billing Assessment: Mr. Victor is a 26 year old male H IVDU and recurrent leg abscesses p/w with staph aureus (not MRSA), E Faecalis, Strep constellatus right calf and thigh abscess. s/p I&Dx2 and daily packing changes. s/p clinda, cftx now ancef and adding po linezolid to cover E Faecalis and potential MRSA given development of new abscess on right flank. - Patient Problems (1) Abscess of right lower leg Code(s): L02.415 - CUTANEOUS ABSCESS OF RIGHT LOWER LIMB SNOMED Code(s): 283696026 Comment: - Appreciate ID and surgical assistance - Packing changes daily with premedication - Staph Aureus (not MRSA) sensitive to ancef , E Faecalis, Strep Constellatus - Continue Ancef and discontinue linezolid (per ID) - Start Hibiclens daily - Continue pain managment and bowel regimen - New area to right flank, will ask surgery to see for possible I+D (2) Anxiety and depression Code(s): F41.8 - OTHER SPECIFIED ANXIETY DISORDERS SNOMED Code(s): 247710006 Comment: - Continue home meds (citalopram, seroquel and ativan) (3) Insomnia Code(s): G47.00 - INSOMNIA, UNSPECIFIED SNOMED Code(s): 595085997 Comment: - Continue seroquel (4) DVT prophylaxis Code(s): TBT2797 - SNOMED Code(s): 819075541 Comment: - Lovenox (5) Full code status Code(s): Z78.9 - OTHER SPECIFIED HEALTH STATUS SNOMED Code(s): 126828121 Status and Disposition: Inpatient. Discharge to home when medically stable.
[2017-08-03] MEDS: HYDROmorphone INJ* 2 MG/ML CARPUJECT SYRINGE IV SLOW PU PRN (15:35)
--- NOTE | 2017-08-03 17:09 | PN ---
Progress Note - Progress Note Date of Service: 08/03/17 Note: Surgery Progress: S: asked to see pt re: new area on R flank which appears to be another evolving abscess. First noted by patient over the weekend. He reports it as moderately tender (enough to keep him off his R side). He denies drainage. The other areas of the RLE seem to be improving. O: Vital Signs - 8 hr 08/03/17 08/03/17 08/03/17 11:10 11:54 11:57 Temperature 98.2 F Pulse Rate 93 Respiratory 16 16 18 Rate Blood Pressure 108/64 (mmHg) O2 Sat by Pulse 97 Oximetry 08/03/17 08/03/17 08/03/17 13:45 15:29 15:35 Temperature 98.0 F Pulse Rate 79 Respiratory 16 20 7 Rate Blood Pressure 101/51 (mmHg) O2 Sat by Pulse 96 Oximetry Skin: back has lightly pigmented scaly lesions c/w tinea versicolor (?); Left medial thigh has an indurated, mildly erythematous area measuring ~ 2cm in sophia. The Right flank is notable for an area of erythema, induration, and tenderness w / a central area of blistering and maybe a small area of central fluctuance, measuring 7.5 x 4.5 cm previous C&S noted (fortune-sensitive, other than PCN, S aureus) A: multiple abscesses, including 2 new add'l, despite adequate abx coverage ( currently cefazolin) P: I offered I&D of the flank abscess today vs checking progression tomorrow and he opted for the latter. To start Hibiclens washes; I wonder if Dicloxacillin might be an option in the face of the add'l evolving abscesses. Will check tomorrow.
[2017-08-03] MEDS: Enoxaparin(*) 40 MG/0.4 ML SYR SUBCUT SCH (19:42)
[2017-08-03] MEDS: QUEtiapine TAB* 100 MG PO SCH (21:34)
[2017-08-04] MEDS: HYDROmorphone TAB* 4 MG PO PRN ×7 (03:34→22:19)
[2017-08-04] MEDS: ceFAZolin 1 GM VIAL(*) 1 GM in NS 0.9% 50 ML* 50 ML IVPB SCH ×3 (03:34→20:27)
[2017-08-04] MEDS: Senna TAB PO SCH (08:55)
[2017-08-04] MEDS: Docusate CAP* 100 MG PO SCH (08:55)
[2017-08-04] MEDS: ALPRAZolam TAB* 0.5 MG PO PRN ×2 (08:55→21:17)
[2017-08-04] MEDS: HYDROmorphone INJ* 2 MG/ML CARPUJECT SYRINGE IV SLOW PU PRN (13:18)
--- NOTE | 2017-08-04 13:29 | PN ---
Subjective Date of Service: 08/04/17 Interval History: Patient seen and examined at bedside. Denies fever, chills, shortness of breath , chest discomfort, N/V/D. Family History: Unchanged from Admission Social History: Unchanged from Admission Past Medical History: Unchanged from Admission Objective Active Medications: Alprazolam (Xanax Tab*) 2 mg PO TID PRN Reason: ANXIETY Bisacodyl (Dulcolax Supp*) 10 mg [place] DAILY PRN Reason: CONSTIPATION Docusate Sodium (Colace Cap*) 100 mg PO DAILY LUZ Enoxaparin Sodium (Lovenox(*)) 40 mg SUBCUT Q24H LUZ Hydromorphone HCl (Dilaudid Inj*) 2 mg IV SLOW PU Q24H PRN Reason: prior to packing change Hydromorphone HCl (Dilaudid Tab*) 4 mg PO Q3H PRN Reason: PAIN Cefazolin Sodium 1 gm/ Sodium (Chloride) 50 mls @ 200 mls/hr IVPB Q8H LUZ Polyethylene Glycol/Electrolytes (Miralax*) 17 gm PO DAILY PRN Reason: CONSTIPATION Quetiapine Fumarate (Seroquel Tab*) 200 mg PO BEDTIME LUZ Senna (Senokot Tab*) 1 tab PO DAILY [facility] Vital Signs 08/03/17 08/03/17 08/03/17 13:45 15:29 15:35 Temperature 98.0 F Pulse Rate 79 Respiratory 16 20 7 Rate Blood Pressure 101/51 (mmHg) O2 Sat by Pulse 96 Oximetry 08/03/17 08/03/17 08/03/17 19:39 19:53 20:25 Temperature 98.0 F Pulse Rate 79 Respiratory 16 16 16 Rate Blood Pressure 111/65 (mmHg) O2 Sat by Pulse 96 Oximetry 08/03/17 08/03/17 08/03/17 21:34 22:25 23:33 Temperature Pulse Rate 69 Respiratory 16 16 16 Rate Blood Pressure 95/45 (mmHg) O2 Sat by Pulse 96 Oximetry 08/03/17 08/04/17 08/04/17 23:34 01:47 03:28 Temperature 97.6 F Pulse Rate 84 Respiratory 16 16 16 Rate Blood Pressure 107/66 (mmHg) O2 Sat by Pulse 96 Oximetry 08/04/17 08/04/17 08/04/17 07:26 08:31 08:55 Temperature 97.9 F Pulse Rate 75 Respiratory 16 16 16 Rate Blood Pressure 97/53 (mmHg) O2 Sat by Pulse 97 Oximetry Oxygen Devices in Use Now: None Appearance: NAD, laying in bed Ears/Nose/Mouth/Throat: Mucous Membranes Moist Respiratory: Symmetrical Chest Expansion and Respiratory Effort, Clear to Auscultation Cardiovascular: NL Sounds; No Murmurs; No JVD, RRR Abdominal: NL Sounds; No Tenderness; No Distention Extremities: No Edema Skin: - - Dressing to right calf and thigh clean, dry and intact. Area of erythema, induration and tenderness to right thigh and right flank. Neurological: Alert and Oriented x 3, NL Muscle Strength and Tone Lines/Tubes/Other Access: Clean, Dry and Intact Peripheral IV - site benign Nutrition: Taking PO's Result Diagrams: 08/02/17 09:45 08/02/17 09:45 Additional Lab and Data: Microbiology and Other Data: Microbiology 07/29/17 16:37 Aerobic Blood Culture - Preliminary Blood Venous No Growth Day 4 Anaerobic Blood Culture - Preliminary No Growth Day 4 Blood Culture - Final 07/29/17 16:40 Aerobic Blood Culture - Final Blood Venous Staphylococcus Hominis Anaerobic Blood Culture - Preliminary No Growth Day 4 Blood Culture - Final Blood MRSA/MSSA (PCR) - Final Mrsa Negative S.aureus Negative 07/29/17 16:42 Skin and Soft Tissue MRSA/MSSA (PCR - Final Leg Right Mrsa Negative S.aureus Positive Gram Stain - Final Wound Culture - Final Staphylococcus Aureus Enterococcus Faecalis Streptococcus Constellatus Assess/Plan/Problems-Billing Assessment: Mr. Victor is a 26 year old male H IVDU and recurrent leg abscesses p/w with staph aureus (not MRSA), E Faecalis, Strep constellatus right calf and thigh abscess. s/p I&Dx2 and daily packing changes. s/p clinda, cftx now ancef and adding po linezolid to cover E Faecalis and potential MRSA given development of new abscess on right flank. - Patient Problems (1) Abscess of right lower leg Code(s): L02.415 - CUTANEOUS ABSCESS OF RIGHT LOWER LIMB SNOMED Code(s): 540809969 Comment: - Appreciate ID and surgical assistance - New area to right flank decreasing in size today and new area to right thigh - Staph Aureus (not MRSA) sensitive to ancef , E Faecalis, Strep Constellatus - Blood cultures, no growth day 4 - Packing changes daily with premedication - Continue Ancef and Hibiclens washes daily - Continue pain managment and bowel regimen (2) Anxiety and depression Code(s): F41.8 - OTHER SPECIFIED ANXIETY DISORDERS SNOMED Code(s): 446760028 Comment: - Continue home meds (citalopram, seroquel and ativan) (3) Insomnia Code(s): G47.00 - INSOMNIA, UNSPECIFIED SNOMED Code(s): 849395487 Comment: - Continue seroquel (4) DVT prophylaxis Code(s): JUZ1315 - SNOMED Code(s): 863070134 Comment: - Lovenox (5) Full code status Code(s): Z78.9 - OTHER SPECIFIED HEALTH STATUS SNOMED Code(s): 988018512 Status and Disposition: Inpatient. Discharge to home when medically stable.
--- NOTE | 2017-08-04 16:15 | PN ---
Progress Note - Progress Note Date of Service: 08/04/17 Note: Surgery Progress: S: less pain R flank, which patient attributes to staying off that side. RLE cont to improve gradually in terms of pain. Packing change done already by nsg. Current Medications Alprazolam (Xanax Tab*) 2 mg PO TID PRN PRN Reason: ANXIETY Last Admin: 08/04/17 08:55 Dose: 2 mg Bisacodyl (Dulcolax Supp*) 10 mg [place] DAILY PRN PRN Reason: CONSTIPATION Last Admin: 07/31/17 19:39 Dose: 10 mg Docusate Sodium (Colace Cap*) 100 mg PO DAILY [facility] Last Admin: 08/04/17 08:55 Dose: 100 mg Enoxaparin Sodium (Lovenox(*)) 40 mg SUBCUT Q24H [facility] Last Admin: 08/03/17 19:42 Dose: 40 mg Hydromorphone HCl (Dilaudid Inj*) 2 mg IV SLOW PU Q24H PRN PRN Reason: prior to packing change Last Admin: 08/04/17 13:18 Dose: 2 mg Hydromorphone HCl (Dilaudid Tab*) 4 mg PO Q3H PRN PRN Reason: PAIN Last Admin: 08/04/17 15:53 Dose: 4 mg Cefazolin Sodium 1 gm/ Sodium (Chloride) 50 mls @ 200 mls/hr IVPB Q8H [facility] Last Admin: 08/04/17 12:35 Dose: 200 mls/hr Polyethylene Glycol/Electrolytes (Miralax*) 17 gm PO DAILY PRN PRN Reason: CONSTIPATION Quetiapine Fumarate (Seroquel Tab*) 200 mg PO BEDTIME [facility] Last Admin: 08/03/17 21:34 Dose: 200 mg Senna (Senokot Tab*) 1 tab PO DAILY [facility] Last Admin: 08/04/17 08:55 Dose: 1 tab O: afeb R flank: erythema, induration and tenderness persist, though erythema does not extend beyond marked border. There is a hint of fluctuance, but no more than yesterday. No extension of the blistering noted yesterday. The lesion on the L thigh appears to have subsided significantly. A/P: multiple skin abscesses; cont Ancef; wound care; will check all wounds again tomorrow; no need for I&D of flank abscess today.
[2017-08-04] MEDS: Enoxaparin(*) 40 MG/0.4 ML SYR SUBCUT SCH (20:29)
[2017-08-04] MEDS: QUEtiapine TAB* 100 MG PO SCH (21:17)
[2017-08-05] MEDS: HYDROmorphone TAB* 4 MG PO PRN ×7 (02:30→21:25)
[2017-08-05] MEDS: ceFAZolin 1 GM VIAL(*) 1 GM in NS 0.9% 50 ML* 50 ML IVPB SCH ×3 (03:56→20:09)
[2017-08-05] MEDS: Senna TAB PO SCH (09:10)
[2017-08-05] MEDS: Docusate CAP* 100 MG PO SCH (09:10)
[2017-08-05] MEDS ORDERED: NS 0.9% 1000 ML* 1,000 ML IV SCH (09:30)
[2017-08-05] MEDS: ALPRAZolam TAB* 0.5 MG PO PRN ×3 (10:49→21:28)
--- NOTE | 2017-08-05 12:08 | PN ---
Progress Note - Progress Note Date of Service: 08/05/17 SOAP: Subjective: CC: right leg abscess HPI: 26 year old man with R calf abscess for a few days; has multiple leg abscesses over the last couple of years. Has 2 new abscesses since arriving; R flank, R loewr leg above the initial abscess; the two leg abscesses have been drained and are less painful and swollen. The flank is less painful. No fever , rash, or diarrhea. Objective: [] Vital Signs Temp 36.7 C 08/05/17 07:23 Pulse 74 08/05/17 07:23 Resp 16 08/05/17 10:49 BP 100/51 08/05/17 07:23 Pulse Ox 95 08/05/17 07:23 Intake & Output 08/04/17 08/05/17 08/05/17 18:59 06:59 18:59 Intake Total 945 355.3 Output Total 300 Balance 945 55.3 Intake: IV Fluids 355.3 ABX - CEFAZOLIN 119.3 NS (0.9%) 236 IVPB 55 ABX - CEFAZOLIN 55 Oral 890 0 Output: Urine 300 Other: Estimated Void Medium Small # Bowel Movements 1 0 Estimated Stool Amount Small # Voids 3 1 Gen:awake, no thrush HEENT: no thrush Neck:supple Heart:RRR no murmur Lungs:CTA BL Abd:+BS NTND soft Skin: No rash MSK: R flank 3 cm erythema, induration, tenderness; R leg 2 areas of mild induration, scant serous drainage Vital Signs Temp 36.7 C 08/05/17 07:23 Pulse 74 08/05/17 07:23 Resp 16 08/05/17 10:49 BP 100/51 08/05/17 07:23 Pulse Ox 95 08/05/17 07:23 Intake & Output 08/04/17 08/05/17 08/05/17 18:59 06:59 18:59 Intake Total 945 355.3 Output Total 300 Balance 945 55.3 Intake: IV Fluids 355.3 ABX - CEFAZOLIN 119.3 NS (0.9%) 236 IVPB 55 ABX - CEFAZOLIN 55 Oral 890 0 Output: Urine 300 Other: Estimated Void Medium Small # Bowel Movements 1 0 Estimated Stool Amount Small # Voids 3 1 HIV Ab negative Assessment: 1. MSSA R leg abscess new ones developing ?ongoing skin barrier disruption. Enterococcus not usually pathogenic in skin infection. 2. PCN allergy, tolerating ceftriaxone, Plan: 1. continue ancef Q8hrs; keflex 500 mg po TID x10 days for discharge 3. hibiclens wash daily
[2017-08-05] MEDS: HYDROmorphone INJ* 2 MG/ML CARPUJECT SYRINGE IV SLOW PU PRN (14:26)
--- NOTE | 2017-08-05 15:49 | PN ---
Subjective Date of Service: 08/05/17 Interval History: Patient seen and examined at bedside. Surgery in the process of debriding flank abscess. Pain about an 8/10. He is not open to trying long acting pain medication. Afebrile. Family History: Unchanged from Admission Social History: Unchanged from Admission Past Medical History: Unchanged from Admission Objective Active Medications: Alprazolam (Xanax Tab*) 2 mg PO TID PRN Bisacodyl (Dulcolax Supp*) 10 mg [place] DAILY PRN Docusate Sodium (Colace Cap*) 100 mg PO DAILY LUZ Enoxaparin Sodium (Lovenox(*)) 40 mg SUBCUT Q24H LUZ Hydromorphone HCl (Dilaudid Inj*) 2 mg IV SLOW PU Q24H PRN Hydromorphone HCl (Dilaudid Tab*) 4 mg PO Q3H PRN Cefazolin Sodium 1 gm/ Sodium (Chloride) 50 mls @ 200 mls/hr IVPB Q8H LUZ Polyethylene Glycol/Electrolytes (Miralax*) 17 gm PO DAILY PRN Quetiapine Fumarate (Seroquel Tab*) 200 mg PO BEDTIME LUZ Senna (Senokot Tab*) 1 tab PO DAILY [facility] 08/05/17 08/05/17 08/05/17 07:23 08:00 09:10 Temperature 98.1 F Pulse Rate 74 Respiratory 16 16 16 Rate Blood Pressure 100/51 (mmHg) O2 Sat by Pulse 95 Oximetry Oxygen Devices in Use Now: None Appearance: sitting up in bed, NAD Eyes: No Scleral Icterus, PERRLA Ears/Nose/Mouth/Throat: NL Teeth, Lips, Gums Neck: No Thyroid Enlargement, Masses Respiratory: Symmetrical Chest Expansion and Respiratory Effort, Clear to Auscultation Cardiovascular: NL Sounds; No Murmurs; No JVD, RRR Abdominal: NL Sounds; No Tenderness; No Distention Extremities: No Edema Skin: - - R calf wounds and R flank wound packed; erythema improving. Multiple other wounds healing; Other areas of induration being monitored; not expanding. Neurological: Alert and Oriented x 3, NL Muscle Strength and Tone Lines/Tubes/Other Access: Clean, Dry and Intact Peripheral IV Nutrition: Taking PO's Result Diagrams: 08/02/17 09:45 08/02/17 09:45 Additional Lab and Data: Microbiology and Other Data: Microbiology 07/29/17 16:37 Aerobic Blood Culture - Preliminary Blood Venous No Growth Day 4 Anaerobic Blood Culture - Preliminary No Growth Day 4 Blood Culture - Final 07/29/17 16:40 Aerobic Blood Culture - Final Blood Venous Staphylococcus Hominis Anaerobic Blood Culture - Preliminary No Growth Day 4 Blood Culture - Final Blood MRSA/MSSA (PCR) - Final Mrsa Negative S.aureus Negative 07/29/17 16:42 Skin and Soft Tissue MRSA/MSSA (PCR - Final Leg Right Mrsa Negative S.aureus Positive Gram Stain - Final Wound Culture - Final Staphylococcus Aureus Enterococcus Faecalis Streptococcus Constellatus Assess/Plan/Problems-Billing Mr. Victor is a 26 year old male PMH IVDU and recurrent leg abscesses p/w with staph aureus (not MRSA), E Faecalis, Strep constellatus right calf and thigh abscess s/p I&D. - Patient Problems (1) Abscess of right lower leg Comment: Appreciate ID and Surgery input. R flank abscess s/p I&D. Grew MSSA sensitive to Ancef. ID recommends 10 days course of Keflex at discharge. Continue PRN Diluadid. Daily dressing changes and Hibiclens wash. (2) Anxiety and depression Comment: Continue home meds (citalopram, seroquel and ativan) (3) Insomnia Comment: Continue seroquel (4) DVT prophylaxis Comment: Meagan (5) Full code status Status and Disposition: Inpatient. Discharge to home when medically stable.
--- NOTE | 2017-08-05 17:40 | PN ---
Progress Note - Progress Note Date of Service: 08/05/17 Note: Surgery Progress: S: states R flank is feeling better, but still sig pain in R calf; also c/o itching in scrotal area; began using Chlorhexidine wipes last pm; very little ambulation (BR only) O: Vital Signs - 8 hr 08/05/17 08/05/17 15:23 15:44 Temperature 98.5 F Pulse Rate 92 Respiratory 16 Rate Blood Pressure 104/62 (mmHg) O2 Sat by Pulse 95 Oximetry R calf: two open wounds w/ small amt serous drainage; no sig erythema or swelling; still moderately severe tenderness, but overall much improved. R distal thigh: open wound superficial, clean; no sig drainage or depth to wound 2nd lesion R thigh (proximal to above): erythema and induration w/ limited tenderness; no progression beyond marked area; no fluctuance No active lesions L thigh. Prior abscess site medial L calf: superficially open (~ 1cm); no active infection R flank: further receding from marked area; still moderate tenderness and now more central fluctuance; I rec'd I&D Procedure: after timeout and local anesthesia w/ 1% plain lidocaine, I&D was performed of Right flank abscess w/ return of moderate purulent drainage; irrigated w/ NS; 1/4" plain pkg placed; pt sandra'd well. A: evolving abscesses, mostly improving P: I&D of Right flank abscess; cont pkg changes to R calf wounds and now to R flank; abx per Hosp; ID rec noted.
[2017-08-05] MEDS: Enoxaparin(*) 40 MG/0.4 ML SYR SUBCUT SCH (20:10)
[2017-08-05] MEDS: QUEtiapine TAB* 100 MG PO SCH (21:25)
[2017-08-05] MEDS: Nystatin TOP POWDER* 15 GM BTL TOPICAL SCH (21:27)
[2017-08-06] MEDS: HYDROmorphone TAB* 4 MG PO PRN ×6 (00:21→21:42)
--- NOTE | 2017-08-06 05:46 | PRO ---
DATE OF PROCEDURE: 08/05/17 - ROOM #[id number] ATTENDING SURGEON: Dr. Daniel Sandoval PRE-OP DIAGNOSIS: Right flank abscess. POST-OP DIAGNOSIS: Right flank abscess. DESCRIPTION OF PROCEDURE: After time-out, local anesthesia (1% plain lidocaine ) was administered in a field block to the area of the right flank abscess. I and D was performed utilizing a cruciate incision, with return of moderate purulent drainage. The wound was explored for loculations, irrigated with normal saline, and packed with plain 0.25 inch packing. The patient tolerated the procedure well. JUAN PABLO MIRELES [id number]/[facility] #: [id number] ZAC
[2017-08-06] MEDS: Senna TAB PO SCH (07:55)
[2017-08-06] MEDS: ceFAZolin 1 GM VIAL(*) 1 GM in NS 0.9% 50 ML* 50 ML IVPB SCH (07:56)
[2017-08-06] MEDS: Docusate CAP* 100 MG PO SCH (07:56)
--- NOTE | 2017-08-06 10:00 | PN ---
Progress Note - Progress Note Date of Service: 08/06/17 SOAP: Subjective: CC: right leg abscess HPI: 26 year old man with R calf abscess for a few days; has multiple leg abscesses over the last couple of years. Has 2 new abscesses since arriving; R flank, R lower leg above the initial abscess; all 3 have been drained. Swelling around left upper arm IV, painful. No fever, rash, or diarrhea. No other frequent infections over the years other than skin abscess. Objective: [] Vital Signs Temp 36.9 C 08/06/17 07:48 Pulse 96 08/06/17 07:48 Resp 18 08/06/17 08:00 BP 104/56 08/06/17 07:48 Pulse Ox 97 08/06/17 07:48 Intake & Output 08/05/17 08/06/17 08/06/17 18:59 06:59 18:59 Intake Total 220 1057 Balance 220 1057 Intake: IV Fluids 429 NS (0.9%) 23 all fluids 406 IVPB 68 ABX - CEFAZOLIN 68 Oral 220 560 Other: Estimated Void Medium # Bowel Movements 0 # Voids 1 Gen:awake, no thrush HEENT: no thrush Neck:supple Heart:RRR no murmur Lungs:CTA BL Abd:+BS NTND soft Skin: No rash MSK: R flank 3 cm erythema, induration, tenderness; R leg 2 areas of mild induration, scant serous drainage Vital Signs Temp 36.9 C 08/06/17 07:48 Pulse 96 08/06/17 07:48 Resp 18 08/06/17 08:00 BP 104/56 08/06/17 07:48 Pulse Ox 97 08/06/17 07:48 Intake & Output 08/05/17 08/06/17 08/06/17 18:59 06:59 18:59 Intake Total 220 1057 Balance 220 1057 Intake: IV Fluids 429 NS (0.9%) 23 all fluids 406 IVPB 68 ABX - CEFAZOLIN 68 Oral 220 560 Other: Estimated Void Medium # Bowel Movements 0 # Voids 1 Assessment: 1. MSSA R leg abscess new ones developing ?ongoing skin barrier disruption. Enterococcus not usually pathogenic in skin infection. 2. PCN allergy, tolerating ceftriaxone 3. R arm pain ?thrombophlebitis Plan: 1. DC IV; linezolid 600 mg PO Q12hrs 2. SHADY AVILES Discussed with Mi Perez NP
[2017-08-06] MEDS: Linezolid TAB* 600 MG PO SCH ×2 (11:13→20:49)
[2017-08-06] MEDS: ALPRAZolam TAB* 0.5 MG PO PRN ×3 (11:13→20:48)
[2017-08-06] MEDS: Nystatin TOP POWDER* 15 GM BTL TOPICAL SCH ×2 (11:16→20:49)
--- NOTE | 2017-08-06 13:01 | RAD ---
HISTORY: Left upper extremity swelling COMPARISONS: January 24, 2016 TECHNIQUE: Multiple transverse and longitudinal ultrasound images were obtained of the left upper extremity from the level of the internal jugular vein inferiorly through to the infra-cubital veins using grayscale, color Doppler, and spectral Doppler imaging with and without compression and with augmentation. Comparison images were obtained of the contralateral internal jugular vein and subclavian vein. FINDINGS: VEINS: There is occlusive thrombus noted within the left basilic vein. The remainder of the venous system of the left upper extremity is compressible throughout its course, with normal flow on color Doppler imaging and normal response to augmentation on spectral Doppler imaging. SOFT TISSUES: There is extensive soft tissue edema. There is a hypoechoic nodule noted within the antecubital fossa measuring 1.1 x 0.6 x 0.7 cm in size OTHER FINDINGS: None. IMPRESSION: 1. OCCLUSIVE THROMBUS NOTED WITHIN THE LEFT BASILIC VEIN. 2. SOFT TISSUE EDEMA. 3. AGAIN NOTED IS A HYPOECHOIC NODULE WITHIN THE ANTECUBITAL FOSSA
--- NOTE | 2017-08-06 14:10 | PN ---
Subjective Date of Service: 08/06/17 Interval History: Patient states pain controlled with regular dilaudid. Moving bowels without difficulty. Denies fevers/chills. Family History: Unchanged from Admission Social History: Unchanged from Admission Past Medical History: Unchanged from Admission Objective Active Medications: Alprazolam (Xanax Tab*) 2 mg PO TID PRN Bisacodyl (Dulcolax Supp*) 10 mg [place] DAILY PRN Docusate Sodium (Colace Cap*) 100 mg PO DAILY [facility]Z Enoxaparin Sodium (Lovenox(*)) 40 mg SUBCUT Q24H LUZ Hydromorphone HCl (Dilaudid Inj*) 2 mg IV SLOW PU Q24H PRN Hydromorphone HCl (Dilaudid Tab*) 4 mg PO Q3H PRN Linezolid (Zyvox Tab*) 600 mg PO Q12H LUZ Nystatin (Nystatin Top Powder*) 1 applic TOPICAL BID LUZ Polyethylene Glycol/Electrolytes (Miralax*) 17 gm PO DAILY PRN Quetiapine Fumarate (Seroquel Tab*) 200 mg PO BEDTIME LUZ Senna (Senokot Tab*) 1 tab PO DAILY [facility] 08/06/17 08/06/17 08/06/17 04:32 07:48 07:56 Temperature 98.2 F 98.5 F Pulse Rate 64 96 Respiratory 16 18 18 Rate Blood Pressure 109/57 104/56 (mmHg) O2 Sat by Pulse 89 97 Oximetry Oxygen Devices in Use Now: None Appearance: sitting up in bed, NAD Eyes: No Scleral Icterus, PERRLA Ears/Nose/Mouth/Throat: NL Teeth, Lips, Gums, Mucous Membranes Moist Neck: NL Appearance and Movements; NL JVP Respiratory: Symmetrical Chest Expansion and Respiratory Effort Cardiovascular: NL Sounds; No Murmurs; No JVD, RRR Abdominal: NL Sounds; No Tenderness; No Distention Extremities: No Edema Skin: - - R flank site packed with improving erythema; R thigh with area of induration (stable). R knee and two right calf sites withut erythema or drainage. Neurological: Alert and Oriented x 3, NL Muscle Strength and Tone Lines/Tubes/Other Access: Clean, Dry and Intact Peripheral IV Nutrition: Taking PO's Result Diagrams: 08/02/17 09:45 08/02/17 09:45 Additional Lab and Data: Assess/Plan/Problems-Billing Mr. Victor is a 26 year old male PMH IVDU and recurrent leg abscesses p/w with staph aureus (not MRSA), E Faecalis, Strep constellatus right calf and thigh abscess s/p I&D. - Patient Problems (1) Abscess of right lower leg Comment: Appreciate ID and Surgery input. R flank abscess s/p I&D. Grew MSSA sensitive to Ancef. Also had Streptococcus and Enterococcus (unusual for skin) ID recommends PO Linezolid for now. Will check to see if insurance covers. Working on setting up wound clinic follow-up. Continue daily Hibiclens wash. (2) Anxiety and depression Comment: Continue home meds (citalopram, seroquel and ativan) (3) Insomnia Comment: Continue seroquel (4) DVT prophylaxis Comment: Lovenox (5) Full code status Status and Disposition: Inpatient. Discharge to home when medically stable.
[2017-08-06] MEDS: Enoxaparin(*) 40 MG/0.4 ML SYR SUBCUT SCH (20:49)
[2017-08-06] MEDS: QUEtiapine TAB* 100 MG PO SCH (20:49)
[2017-08-07] MEDS: HYDROmorphone TAB* 4 MG PO PRN ×5 (02:20→14:30)
[2017-08-07 08:07] VITALS: BP 103/58
[2017-08-07] MEDS: Senna TAB PO SCH (08:46)
[2017-08-07] MEDS: ALPRAZolam TAB* 0.5 MG PO PRN ×2 (08:46→13:13)
[2017-08-07] MEDS: Docusate CAP* 100 MG PO SCH (08:46)
[2017-08-07] MEDS: Nystatin TOP POWDER* 15 GM BTL TOPICAL SCH (08:52)
[2017-08-07] MEDS: Linezolid TAB* 600 MG PO SCH (11:39)
--- NOTE | 2017-08-07 12:57 | DCNOTE ---
Subjective Date of Service: 08/07/17 Interval History: Patient seen and examined at bedside. Patient states he has had his dressings changed already today. He states pain is relatively controlled. No fever chills or new areas of redness noted. Family History: Unchanged from Admission Social History: Unchanged from Admission Past Medical History: Unchanged from Admission Objective Active Medications: Alprazolam (Xanax Tab*) 2 mg PO TID PRN Bisacodyl (Dulcolax Supp*) 10 mg [place] DAILY PRN Docusate Sodium (Colace Cap*) 100 mg PO DAILY [facility] Enoxaparin Sodium (Lovenox(*)) 40 mg SUBCUT Q24H LUZ Hydromorphone HCl (Dilaudid Inj*) 2 mg IV SLOW PU Q24H PRN Hydromorphone HCl (Dilaudid Tab*) 4 mg PO Q3H PRN Linezolid (Zyvox Tab*) 600 mg PO Q12H LUZ Nystatin (Nystatin Top Powder*) 1 applic TOPICAL BID LUZ Polyethylene Glycol/Electrolytes (Miralax*) 17 gm PO DAILY PRN Quetiapine Fumarate (Seroquel Tab*) 200 mg PO BEDTIME LUZ Senna (Senokot Tab*) 1 tab PO DAILY [facility] 08/07/17 08/07/17 08/07/17 05:51 07:47 07:51 Temperature 98.7 F Pulse Rate 64 Respiratory 16 16 16 Rate Blood Pressure 103/58 (mmHg) O2 Sat by Pulse 98 Oximetry Oxygen Devices in Use Now: None Appearance: laying in bed, NAD Eyes: No Scleral Icterus, PERRLA Ears/Nose/Mouth/Throat: NL Teeth, Lips, Gums Neck: NL Appearance and Movements; NL JVP Respiratory: Symmetrical Chest Expansion and Respiratory Effort, Clear to Auscultation Cardiovascular: NL Sounds; No Murmurs; No JVD, RRR Extremities: No Edema Skin: - - R upper thigh area of induration improved. No erythema around abscesson R knee/ lower leg. No drainage. R flank are aof erythema improved. Neurological: Alert and Oriented x 3, NL Muscle Strength and Tone Lines/Tubes/Other Access: Clean, Dry and Intact Peripheral IV Nutrition: Taking PO's Result Diagrams: 08/02/17 09:45 08/02/17 09:45 Additional Lab and Data: Microbiology and Other Data: Microbiology 07/29/17 16:37 Aerobic Blood Culture - Preliminary Blood Venous No Growth Day 4 Anaerobic Blood Culture - Preliminary No Growth Day 4 Blood Culture - Final 07/29/17 16:40 Aerobic Blood Culture - Final Blood Venous Staphylococcus Hominis Anaerobic Blood Culture - Preliminary No Growth Day 4 Blood Culture - Final Blood MRSA/MSSA (PCR) - Final Mrsa Negative S.aureus Negative 07/29/17 16:42 Skin and Soft Tissue MRSA/MSSA (PCR - Final Leg Right Mrsa Negative S.aureus Positive Gram Stain - Final Wound Culture - Final Staphylococcus Aureus Enterococcus Faecalis Streptococcus Constellatus Assess/Plan/Problems-Billing Mr. Victor is a 26 year old male PMH IVDU and recurrent leg abscesses p/w with staph aureus (not MRSA), E Faecalis, Strep constellatus right calf and thigh abscess s/p I&D. - Patient Problems (1) Abscess of right lower leg (2) Anxiety and depression (3) Insomnia (4) DVT prophylaxis (5) Full code status Status and Disposition: Inpatient. Stable to be discharged home.
--- NOTE | 2017-08-07 19:13 | PN ---
Progress Note - Progress Note Date of Service: 08/07/17 Note: Surgery Progress: (late entry) S: slated for d/c home today; overall, improving O: all wounds checked; R calf wounds w/ min drainage and much less tenderness; will leave packing out; R flank wound still somewhat tender w/ moderate drainage , but min depth on probing w/ Qtip; repacked w/ /4" plain gauze; he will remove this in 24 -48 hrs and thereafter apply triple abx ointment, as with the other wounds. A/P: s/p I&D of mult abscesses; home today (abx per hosp); office f/u 08/12.
--- NOTE | 2017-08-08 05:43 | DS ---
DISCHARGE SUMMARY: DATE OF ADMISSION: 07/31/17 DATE OF DISCHARGE: 08/07/17 ATTENDING PROVIDER: Seth Dunlap MD* (DICTATED BY KIAN GARDNER NP) PRIMARY DIAGNOSIS: Multiple lower leg MSSA abscesses. SECONDARY DIAGNOSES: IV drug abuse, anxiety, and depression. STUDIES WHILE IN THE HOSPITAL: 1. Chest x-ray, 07/29/17. No evidence for acute disease. 2. CT of the lower extremity without contrast. There is a subcutaneous abscess in the mid calf measuring 15 mm with air. There is fluid tracking along with fascia of the calf muscles. This is nonspecific. Clinical correlation is suggested. No evidence of subcu or fascial air is noted tracking along with fascial planes. MEDICATIONS AT DISCHARGE: New medications: 1. Hibiclens 4% topical wash body daily. 2. Colace 100 mg oral daily. 3. Dilaudid 4 mg oral every 3 hours as needed for pain, dispensed 5 tablets, max daily dose 3. The patient's I-STOP record was checked and he has an active prescription for Xanax, but not for Dilaudid. 4. Linezolid 600 mg oral twice daily. 5. Nystatin 1 application topical twice daily. 6. MiraLAX 17 g oral daily as needed. 7. Senna 1 tablet oral daily. The following are the medications that the patient came in on: 1. Ibuprofen 800 mg oral every 4 hours as needed. 2. Lexapro 20 mg oral daily. 3. Xanax 2 mg oral 4 times daily. 4. Seroquel 200 mg oral at bedtime. HISTORY OF PRESENT ILLNESS AND HOSPITAL COURSE: Mr. Breen is a 26-year-old male with a past medical history significant for IV drug abuse, who claims that he is currently not injecting, but presented with a large right abscess to his calf. The patient had I and D of his calf abscess in the emergency room with cultures sent. Infectious Disease was consulted. The patient was initially placed on vancomycin and switched to ceftriaxone as well as clindamycin. The patient had a consultation by General Surgery for concern of possible necrotizing fascitis. Surgery followed along during his hospitalization. The patient had other areas that started to erupt during his hospitalization here. He had an additional one on his right flank that eventually was drained by Surgery on August 05. The patient had another area on his right anterior thigh that was indurated, but the erythematous area remained stable and started to decrease during this hospitalization. The patient had significant difficulty with pain control during his hospitalization here. He has a history of narcotic use and was taking 4 mg of Dilaudid every 3 hours and still stating that he had no pain relief. Long acting narcotics were offered to the patient, yet he stated that all long acting pain medicines do not work for him. Given his history of drug abuse, I have only prescribed him 5 pills of Dilaudid upon discharge. He can follow up with his primary care provider if he still experiences pain. The patient had daily dressing changes and packing of the abscesses that were drained. On the day of discharge, all of the abscesses do not have any drainage and erythema was improving. Infectious Disease followed along throughout his hospitalization. Culture grew Staph aureus, enterococcus as well as streptococcus. The patient was transitioned to oral linezolid and the plan is for him to continue to complete a 10-day course. DISCHARGE PLANNING: The patient is discharged on a regular diet. The patient' s activity as tolerated. The patient is instructed to change his wound dressings daily as well as perform a Hibiclens wash. He has been given wound supplies and prescribed Kerlix and Telfa. The patient has a followup appointment at the wound clinic on August 14 at 12:45 p.m. This is so that a physician can check his wounds on a weekly basis. He also has a followup appointment with Dr. Levy, his primary care provider on 08/03/17. The patient has been instructed to return to the hospital if he experiences any high fever or any new worsening abscesses. I have reviewed all these instructions with the patient and he is agreeable with his discharge today. This is a summarized report of a complex medical history and hospital stay. For more details, please see the entire medical record. TIME SPENT: Time for the discharge was 60 minutes and over 35 minutes was spent with the patient discussing medications at discharge and followup instructions. CONDITION ON DISCHARGE: Stable. KIAN GARDNER NP [id number]/[facility] [place] [id number] ZAC
== END 2017-08-07 15:20 | disposition home or self-care (01) | DRG 383 ==
LOC: ED 15:10 → MED 18:05 → OBSVTOIN 07-31 09:29
PROVIDERS: ADMIT Internal Medicine; ATTEND Hospitalist
PROC: 0H9KXZZ Drainage of Right Lower Leg Skin, External Approach (ICD-10-PCS; principal; 2017-07-29)
PROC: 0H97XZZ Drainage of Abdomen Skin, External Approach (ICD-10-PCS; 2017-08-05)
DX: L02.415 Cutaneous abscess of right lower limb (principal); F33.9 Major depressive disorder, recurrent, unspecified; L02.416 Cutaneous abscess of left lower limb; B95.61 Methicillin susceptible Staphylococcus aureus infection as the cause of diseases classified elsewhere; B95.2 Enterococcus as the cause of diseases classified elsewhere; F19.10 Other psychoactive substance abuse, uncomplicated; F41.9 Anxiety disorder, unspecified; G47.09 Other insomnia; F17.210 Nicotine dependence, cigarettes, uncomplicated; F51.9 Sleep disorder not due to a substance or known physiological condition, unspecified; Z88.6 Allergy status to analgesic agent; Z88.0 Allergy status to penicillin; Z88.8 Allergy status to other drugs, medicaments and biological substances; Z79.1 Long term (current) use of non-steroidal anti-inflammatories (NSAID); Z79.899 Other long term (current) drug therapy
CPT/HCPCS: 36415; 71010; 80048; 80053; 80307; 81003; 83605; 83880; 84145; 84484; 85025; 85384; 85610; 85652; 85730; 86140; 86703; 87040; 87070; 87077; 87150; 87186; 87205; 87640; 87641; 93005; 99406; A9270-GY; G0378; J0690; J0696; J1170; J1650; J1885; J3370

== ENCOUNTER 2017-11-25 11:00 | Emergency (ER) | payer BC ==
--- NOTE | 2017-11-25 11:55 | ED ---
Skin Complaint - HPI Summary HPI Summary: Patient presents to the ED with left lower abdomen abscess which has been present x 2 days. He has a significant history of multiple abscesses and has been hospitalized in the past for IV abx. Most recently in Jul for a R calf abscess. Significant drug abuse history with needle use. Has had multiple FB removed from antecubital and FB in the leg as well. He denies drug use today. He states he has been taking 1 bactrim daily for the last 2 days with no improvement of his symptoms. Symptoms worsened after taking a hot bath last night. Denies fevers, sweats or chills. Denies any other health concerns at this time. - History of Current Complaint Chief Complaint: EDRashSkinAbscess Time Seen by Provider: 11/25/17 11:12 Stated Complaint: LOWER ABD PAIN Hx Obtained From: Patient Onset/Duration: Started Hours Ago Skin Exposure Onset/Duration: Hours Ago Timing: Constant Onset Severity: Moderate Current Severity: Moderate Pain Intensity: 8 Pain Scale Used: 0-10 Numeric Skin Location: Abdomen Character: Swelling, Pain, Redness, Raised, Painful Aggravating Symptom(s): Showering, Touch Alleviating Symptom(s): Nothing Associated Signs & Symptoms: Abdominal Pain, Drainage, Tenderness Related History: Trauma - Additional Pertinent History Primary Care Physician: [id number] - Allergy/Home Medications Allergies/Adverse Reactions: Allergies Allergy/AdvReac Type Severity Reaction Status Date / Time Acetaminophen [From Tylenol] Allergy Severe See Comment Verified 06/23/16 13:09 Penicillins Allergy Severe anaphylaxis Verified 06/23/16 13:09 Tramadol Allergy Severe Diarrhea Verified 06/23/16 13:09 PMH/Surg Hx/FS Hx/Imm Hx Previously Healthy: Yes Endocrine/Hematology History: Reports: Hx Anemia - LOW HH Denies: Hx Diabetes Cardiovascular History: Reports: Hx Congestive Heart Failure - pt. says he was diagnosed, "went away" Denies: Hx Hypertension, Hx Pacemaker/ICD, Other Cardiovascular Problems/ Disorders Respiratory History: Denies: Hx Asthma, Hx Chronic Obstructive Pulmonary Disease (COPD), Other Respiratory Problems/Disorders GI History: Reports: Other GI Disorders - constipation History: Reports: Hx Kidney Stones - passed on own Denies: Hx Renal Disease Musculoskeletal History: Reports: Hx Back Problems, Hx Gout, Other Musculoskeletal History - SCOLIOSIS, previous upper extremity infection, LOWER BACK STENOSIS Sensory History: Denies: Hx Contacts or Glasses, Hx Hearing Aid Opthamlomology History: Denies: Hx Contacts or Glasses Neurological History: Reports: Hx Headaches, Hx Migraine, Hx Seizures Psychiatric History: Reports: Hx Anxiety, Hx Depression, Hx Inpatient Treatment - [facility] in [facility] [place], Hx Substance Abuse - IV opana and IV suboxone - Surgical History Surgery Procedure, Year, and Place: LEFT ARM SURGERY FOR INFECTION (INFECTION FROM IV HEROIN USE) Hx Anesthesia Reactions: No - Immunization History Hx Pertussis Vaccination: No Immunizations Up to Date: Unable to Obtain/Confirm Infectious Disease History: Yes Infectious Disease History: Reports: Hx of Known/Suspected MRSA Denies: History Other Infectious Disease, Traveled Outside the [place] in Last 30 Days - Family History Known Family History: Positive: Hypertension, Diabetes - Social History Occupation: Unemployed Lives: Alone Alcohol Use: Rare Hx Substance Use: Yes Substance Use Type: Reports: Prescribed Substance Use Comment - Amount & Last Used: Hx of prescription drug abuse intravenously Hx Tobacco Use: Yes Smoking Status (MU): Light Every Day Tobacco Smoker Type: Cigarettes Amount Used/How Often: 1/2 PPD Review of Systems Constitutional: Negative Negative: Fever, Chills, Fatigue, Skin Diaphoresis Eyes: Negative ENT: Negative Respiratory: Negative Gastrointestinal: Negative Positive: no symptoms reported, see HPI Musculoskeletal: Negative Positive: Other - abscess to left lower quadrant Neurological: Negative All Other Systems Reviewed And Are Negative: Yes Physical Exam Triage Information Reviewed: Yes Vital Signs On Initial Exam: Initial Vitals Temp Pulse Resp BP Pulse Ox 99.7 F 117 18 134/80 99 11/25/17 11:07 11/25/17 11:07 11/25/17 11:07 11/25/17 11:07 11/25/17 11:07 Vital Signs Reviewed: Yes Appearance: Positive: Well-Appearing, No Pain Distress Skin: Positive: Warm, Other - left lower quadrant abscess measuring 3x3cm fluctant. Many obvious small markings around the area resembling needle sticks. Also noted to the bilateral arms with similar markings and ecchymosis. Head/Face: Positive: Normal Head/Face Inspection Eyes: Positive: EOMI, DEANDRE, Conjunctiva Clear Neck: Positive: Supple, Nontender, No Lymphadenopathy Respiratory/Lung Sounds: Positive: Clear to Auscultation Cardiovascular: Positive: RRR, Pulses are Symmetrical in both Upper and Lower Extremities Musculoskeletal: Positive: Normal, Strength/ROM Intact Neurological: Positive: Speech Normal Psychiatric: Positive: Normal AVPU Assessment: Alert Diagnostics - Vital Signs Vital Signs Temp Pulse Resp BP Pulse Ox 11/25/17 11:07 99.7 F 117 18 134/80 99 - Laboratory Lab Statement: Any lab studies that have been ordered have been reviewed, and results considered in the medical decision making process. Course/Dx - Course Course Of Treatment: left lower quadrant abscess measuring 3x3cm fluctant. Many obvious small markings around the area resembling needle sticks. Also noted to the bilateral arms with similar markings and ecchymosis. Previous history includes multiple abscesses, infections, most recently pyomyositis, retained FB from drug use. He denies current drug use. Cleansed wound. 2ml lidocaine to the wound. Small incision made. Approximately 3ml drainage from the abscess as a white thick substance. Area was bandaged and clindamycin 4 times daily for 7 days given. Wound culture sent. Will await results. Patient is Ok with plan and discharge and he is given strict return precautions given his history of worsening infections and pyomyositis. - Differential Diagnoses - Skin Complaint Differential Diagnoses: Abscess - Diagnoses Provider Diagnoses: Abscess Discharge - Discharge Plan Condition: Stable Disposition: HOME Prescriptions: Clindamycin Cap(NF) [Clindamycin Cap 300 mg Cap(NF)] 300 mg PO Q6H #28 cap Patient Education Materials: Abscess (ED) Referrals: Isidro Levy MD [Primary Care Provider] - Additional Instructions: Warm compresses 3-4 times daily Continue with bandage until drainage has ceased Clindamycin four times daily for 7 days Do not miss a dose. If you develop redness, streaks of red around the wound, swelling, abnormal drainage or you develop a fever - you need to come back to the ED right away. FINISH THE ENTIRE COURSE OF ANTIBIOTICS, EVEN IF YOU BEGIN TO FEEL BETTER! Please take probiotics on the opposite schedule of the antibiotic to prevent secondary infections. I
[2017-11-25 11:58] VITALS: BP 108/62
--- NOTE | 2017-11-27 13:21 | ED ---
Progress - Progress Note Progress Note: Patient's preliminary wound culture results reveal Staphylococcus aureus and Streptococcus constellatus. Patient was started on clindamycin. This is most likely an appropriate antibiotic. Sensitivities pending. No treatment change at this time. Course/Dx - Course Course Of Treatment: left lower quadrant abscess measuring 3x3cm fluctant. Many obvious small markings around the area resembling needle sticks. Also noted to the bilateral arms with similar markings and ecchymosis. Previous history includes multiple abscesses, infections, most recently pyomyositis, retained FB from drug use. He denies current drug use. Cleansed wound. 2ml lidocaine to the wound. Small incision made. Approximately 3ml drainage from the abscess as a white thick substance. Area was bandaged and clindamycin 4 times daily for 7 days given. Wound culture sent. Will await results. Patient is Ok with plan and discharge and he is given strict return precautions given his history of worsening infections and pyomyositis. - Diagnoses Provider Diagnoses: Abscess
== END 2017-11-25 11:55 | disposition home or self-care (01) ==
LOC: ED 11:00
DX: L02.91 Cutaneous abscess, unspecified (principal); R10.32 Left lower quadrant pain; Z86.79 Personal history of other diseases of the circulatory system
CPT/HCPCS: 87070; 87077; 87186; 87205; 87640; 87641; 99282

== ENCOUNTER 2017-11-28 14:11 | Emergency (ER) | payer BC ==
[2017-11-28] MEDS ORDERED: Lidocaine 2% EPI 1:200000 MPF* 20 ML VIAL ONE (15:14)
[2017-11-28] MEDS ORDERED: traMADol TAB* 50 MG PO ONE (15:33)
[2017-11-28 16:22] VITALS: BP 134/87
--- NOTE | 2017-11-28 17:09 | ED ---
Korey Sims Stephanie, scribed for Juan A Cagle on 11/28/17 at 1510 . Skin Complaint - HPI Summary HPI Summary: The pt is a 27 y/o M presenting to the ED with c/o a skin abscess on his R buttock that has enlarged over the past week. The pt reports pain in the affected area. The pt is currently snf through an abx prescription. - History of Current Complaint Chief Complaint: EDGeneral Time Seen by Provider: 11/28/17 14:47 Stated Complaint: ABSCESS ON RT BUTTOCK Hx Obtained From: Patient Onset/Duration: Started Weeks Ago - 1, Still Present Timing: Constant Current Severity: Moderate Pain Intensity: 8 Pain Scale Used: 0-10 Numeric Skin Location: Other: - R buttock Character: Pain Aggravating Symptom(s): Nothing Alleviating Symptom(s): Nothing - Additional Pertinent History Primary Care Physician: SWATHI - Allergy/Home Medications Allergies/Adverse Reactions: Allergies Allergy/AdvReac Type Severity Reaction Status Date / Time Acetaminophen [From Tylenol] Allergy Severe See Comment Verified 11/28/17 15:00 Penicillins Allergy Severe anaphylaxis Verified 11/28/17 15:00 Tramadol Allergy Severe Diarrhea Verified 11/28/17 15:00 PMH/Surg Hx/FS Hx/Imm Hx Endocrine/Hematology History: Reports: Hx Anemia - LOW HH Denies: Hx Diabetes Cardiovascular History: Reports: Hx Congestive Heart Failure - pt. says he was diagnosed, "went away" Denies: Hx Hypertension, Hx Pacemaker/ICD, Other Cardiovascular Problems/ Disorders Respiratory History: Denies: Hx Asthma, Hx Chronic Obstructive Pulmonary Disease (COPD), Other Respiratory Problems/Disorders GI History: Reports: Other GI Disorders - constipation History: Reports: Hx Kidney Stones - passed on own Denies: Hx Renal Disease Musculoskeletal History: Reports: Hx Back Problems, Hx Gout, Other Musculoskeletal History - SCOLIOSIS, previous upper extremity infection, LOWER BACK STENOSIS Sensory History: Denies: Hx Contacts or Glasses, Hx Hearing Aid Opthamlomology History: Denies: Hx Contacts or Glasses Neurological History: Reports: Hx Headaches, Hx Migraine, Hx Seizures Psychiatric History: Reports: Hx Anxiety, Hx Depression, Hx Inpatient Treatment - [facility] in [facility] [place] Hx Substance Abuse - IV opana and IV suboxone - Surgical History Surgery Procedure, Year, and Place: LEFT ARM SURGERY FOR INFECTION (INFECTION FROM IV HEROIN USE) Hx Anesthesia Reactions: No Infectious Disease History: No Infectious Disease History: Reports: Hx of Known/Suspected MRSA Denies: History Other Infectious Disease, Traveled Outside the [place] in Last 30 Days - Family History Known Family History: Positive: Hypertension, Diabetes - Social History Occupation: Unemployed Lives: With Family Alcohol Use: Rare Hx Substance Use: Yes Substance Use Type: Reports: Prescribed Substance Use Comment - Amount & Last Used: Hx of prescription drug abuse intravenously Hx Tobacco Use: Yes Smoking Status (MU): Light Every Day Tobacco Smoker Type: Cigarettes Amount Used/How Often: 1/2 PPD Review of Systems Negative: Fever Positive: Other - pain over R buttock over abscess All Other Systems Reviewed And Are Negative: Yes Physical Exam - Summary Physical Exam Summary: Appearance: Well appearing, no pain distress Skin: warm, dry, swelling over R buttock. 3x3 cm R tenderness and forming consistency Head/face: normal Eyes: EOMI, DEANDRE ENT: normal Neck: supple, non-tender Respiratory: CTA, breath sounds present Cardiovascular: RRR, pulses symmetrical Abdomen: non-tender, soft Bowel: present Musculoskeletal: normal, strength/ROM intact Neuro: normal, sensory motor intact, A&Ox3 Triage Information Reviewed: Yes Vital Signs On Initial Exam: Initial Vitals Temp Pulse Resp BP Pulse Ox 98.2 F 110 14 128/81 98 11/28/17 14:16 11/28/17 14:16 11/28/17 14:16 11/28/17 14:16 11/28/17 14:16 Vital Signs Reviewed: Yes Procedures - Incision and Drainage Site: R buttock Anesthesia: Local Instrument(s): Scalpel, Needle Packing: Drain Diagnostics - Vital Signs Vital Signs Temp Pulse Resp BP Pulse Ox 11/28/17 15:00 105 96 11/28/17 14:56 108 98 11/28/17 14:54 116/84 11/28/17 14:16 98.2 F 110 14 128/81 98 - Laboratory Lab Statement: Any lab studies that have been ordered have been reviewed, and results considered in the medical decision making process. Course/Dx - Course Course Of Treatment: Pt came to ED with swelling on R buttock and an abscess. ED physician will add on Keflex to medications list of pt. ED physician will follow culture reports ad change abx. Follow up with surgery in 2-3 days. Return to ED in 24 hrs for drain removal. - Diagnoses Provider Diagnoses: Abscess of right buttock Discharge - Discharge Plan Condition: Stable Disposition: HOME Referrals: No Primary Care Phys,NOPCP [Primary Care Provider] - Additional Instructions: Follow up with surgery organizational development specialist in 2-3 days ([phone]). Return to ED in 24 hrs for drain removal. The documentation as recorded by the Korey browning Stephanie accurately reflects the service I personally performed and the decisions made by Gurjit welch Emmanuel.
== END 2017-11-28 16:20 | disposition home or self-care (01) ==
LOC: ED 14:11
DX: L02.31 Cutaneous abscess of buttock (principal); F17.210 Nicotine dependence, cigarettes, uncomplicated; Z88.6 Allergy status to analgesic agent; Z88.5 Allergy status to narcotic agent; Z88.0 Allergy status to penicillin
CPT/HCPCS: 10060; 99282

== ENCOUNTER 2018-07-08 15:59 | Inpatient (IN) | payer BC ==
[2018-07-08] MEDS ORDERED: Morphine VIAL* 4 MG/ML VIAL (1 ml vial) IV ONE ×2 (16:51→19:07)
--- NOTE | 2018-07-08 17:23 | ED ---
Upper Extremity Pain - HPI Summary HPI Summary: This patient is a 27 year old F presenting to [facility] with a chief complaint of right hand pain that began 5 days ago and has gotten worse. Pt states 5 days ago he hit his hand while moving a couch and since the swelling and pain has increased. The patient rates the pain 10/10 in severity. Patient reports thumb numbness and decreased ROM. Pt also c/o ecchymosis to the effected hand. Several weeks ago patient suffered a puncture wound to the back of the left calf but states that is healing well. Hx MRSA - History of Current Complaint Chief Complaint: EDExtremityUpper Stated Complaint: SWOLLEN RT HAND Time Seen by Provider: 07/08/18 16:45 Hx Obtained From: Patient Onset/Duration: Started Days Ago - 5, Still Present Timing: Constant Severity Initially: Mild Severity Currently: Severe Pain Location: Hand - r Associated Signs & Symptoms: Positive: Swelling, Bruising, Numbness/Tingling - Allergies/Home Medications Allergies/Adverse Reactions: Allergies Allergy/AdvReac Type Severity Reaction Status Date / Time acetaminophen Allergy See Comment Verified 07/08/18 17:55 Penicillins Allergy Anaphylatic Verified 07/08/18 17:55 Shock tramadol Allergy Diarrhea Verified 07/08/18 17:55 PMH/Surg Hx/FS Hx/Imm Hx Endocrine/Hematology History: Reports: Hx Anemia - LOW HH Denies: Hx Diabetes Cardiovascular History: Reports: Hx Congestive Heart Failure - pt. says he was diagnosed, "went away" Denies: Hx Hypertension, Hx Pacemaker/ICD, Other Cardiovascular Problems/ Disorders Respiratory History: Denies: Hx Asthma, Hx Chronic Obstructive Pulmonary Disease (COPD), Other Respiratory Problems/Disorders GI History: Reports: Other GI Disorders - constipation History: Reports: Hx Kidney Stones - passed on own Denies: Hx Renal Disease Musculoskeletal History: Reports: Hx Back Problems, Hx Gout, Other Musculoskeletal History - SCOLIOSIS, previous upper extremity infection, LOWER BACK STENOSIS Sensory History: Denies: Hx Contacts or Glasses, Hx Hearing Aid Opthamlomology History: Denies: Hx Contacts or Glasses Neurological History: Reports: Hx Headaches, Hx Migraine, Hx Seizures Psychiatric History: Reports: Hx Anxiety, Hx Depression, Hx Inpatient Treatment - [facility] Hx Substance Abuse - IV opana and IV suboxone - Surgical History Surgery Procedure, Year, and Place: LEFT ARM SURGERY FOR INFECTION (INFECTION FROM IV HEROIN USE) Hx Anesthesia Reactions: No Infectious Disease History: No Infectious Disease History: Reports: Hx of Known/Suspected MRSA Denies: History Other Infectious Disease, Traveled Outside the [place] in Last 30 Days - Family History Known Family History: Positive: Hypertension, Diabetes - Social History Alcohol Use: Rare Hx Substance Use: Yes Substance Use Type: Reports: Prescribed Substance Use Comment - Amount & Last Used: Hx of prescription drug abuse intravenously Hx Tobacco Use: Yes Smoking Status (MU): Light Every Day Tobacco Smoker Type: Cigarettes Amount Used/How Often: 1/2 PPD Review of Systems Positive: Other - right hand pain/ swelling Positive: Bruising, Other - cut to calf that is old Positive: Numbness All Other Systems Reviewed And Are Negative: Yes Physical Exam - Summary Physical Exam Summary: Appearance: Well-appearing, Well-nourished, lying in bed comfortably Skin: there are two ulcerations without associated signs of infection at the back of the left calf Eyes: sclera anicteric, no conjunctival pallor ENT: mucous membranes moist, pharynx appears normal Neck: Supple, nontender Respiratory: Clear to auscultation, no signs of respiratory distress Cardiovascular: Normal S1, S2. No murmurs. Normal distal pulses in tibial and radial bilaterally. Abdomen: Soft, nontender, normal active bowel sounds present Musculoskeletal: right hand had swelling on the radial side of the hand with a lot of bruising on the thenar eminence and adjacent area. It is exquisitely TTP Neurological: A&Ox3, awake and alert, mentation is normal, speech is fluent and appropriate Psychiatric: affect is normal, does not appear anxious or depressed Triage Information Reviewed: Yes Vital Signs On Initial Exam: Initial Vitals Temp Pulse Resp BP Pulse Ox 97.1 F 111 28 108/64 99 07/08/18 16:23 07/08/18 16:23 07/08/18 16:23 07/08/18 16:23 07/08/18 16:23 Vital Signs Reviewed: Yes Diagnostics - Vital Signs Vital Signs Temp Pulse Resp BP Pulse Ox 07/08/18 16:23 97.1 F 111 28 108/64 99 - Laboratory Result Diagrams: 07/08/18 18:04 07/08/18 21:13 Lab Statement: Any lab studies that have been ordered have been reviewed, and results considered in the medical decision making process. - Radiology Hand Xray Radiology Interpretation Completed By: Radiologist - Normal right hand radiograph. If the patient's symptoms persist, follow-up imaging is recommended. ED physician has reviewed this radiology report. - CT CT UE CT Interpretation Completed By: Radiologist - 1. Moderate edematous changes in the subcutaneous tissues and surrounding the extensor tendons most pronounced dorsally which may be passive edema and/or cellulitis. No abscess is localized on nonenhanced study. No soft tissue gas. If there is suspicion of infected tenosynovitis consider MRI with contrast. 2. Hand is in flexed position. No fracture or dislocation. Dr. Block has reviewed this report. Course/Dx - Course Assessment/Plan: This patient is a 27 year old F presenting to [facility] with a chief complaint of right hand pain that began 5 days ago and has gotten worse. Pt states 5 days ago he hit his hand while moving a couch and since the swelling and pain has increased. The patient rates the pain 10/10 in severity. Patient reports thumb numbness and decreased ROM. Pt also c/o ecchymosis to the effected hand. Several weeks ago patient suffered a puncture wound to the back of the left calf but states that is healing well. Hx MRSA. Hand XR reveals, per radiologist, Normal right hand radiograph. If the patient's symptoms persist, follow-up imaging is recommended. Test results with no significant abnormalities except for _. In the ED course the patient was given morphine for pain. We discussed patient care with Dr Holliday and Dr. Lundberg and they have accepted the patient for admission. Patient will be admitted. The patient is agreeable with this plan. - Diagnoses Provider Diagnoses: Infected hand - Physician Notifications Discussed Care of Patient With: Yunier Muñoz Time Discussed With Above Provider: 17:00 Instructed by Provider To: Other - they will look at the xrays and come see the pt. After he saw the pt he states he beleives it may be an infection and does not beleive it is compartment syndrome. He suggests admitting the patient. Discharge - Sign-Out/Discharge Documenting (check all that apply): Patient Departure - admitted - Discharge Plan Condition: Guarded Disposition: ADMITTED TO [facility] - Billing Disposition and Condition Condition: GUARDED Disposition: Admitted to [facility] - Attestation Statements Document Initiated by Scribe: Yes Documenting Scribe: Per Munoz Provider For Whom Kori is Documenting (Include Credential): Raji Block MD Scribe Attestation: I, Per Munoz , scribed for Raji Block MD on 07/09/18 at 0855. Scribe Documentation Reviewed: Yes Provider Attestation: The documentation as recorded by the Per browning accurately reflects the service I personally performed and the decisions made by me, Raji Block MD Consult Consult: 1918 I discussed patient care with Dr. Holliday and he has accepted the patient for admission.
--- NOTE | 2018-07-08 17:29 | RAD ---
INDICATION: Pain and swelling at the right hand, worse at the thumb after lifting a couch COMPARISON: None. TECHNIQUE: 3 views of the right hand were obtained. FINDINGS: The adequately corticated bones are in normal alignment. No significant focal osseous abnormality or fracture is seen. Joint spaces appear maintained. IMPRESSION: Normal right hand radiograph. If the patient's symptoms persist, follow-up imaging is recommended.
[2018-07-08] MEDS ORDERED: Morphine VIAL* 10 MG/ML 1 ML VIAL ONE (18:00)
[2018-07-08] MEDS ORDERED: Morphine VIAL* 10 MG/ML 1 ML VIAL IV ONE (18:04)
[2018-07-08 18:14] LABS: ABS Basophils 0 10^3/ul (0-0.2); ABS Eosinophils 0.1 10^3/ul (0-0.6); ABS Lymphocytes 1.1 10^3/ul (1.0-4.8); ABS Monocytes 0.6 10^3/ul (0-0.8); ABS Neutrophils 5.4 10^3/ul (1.5-7.7); ABS Nucleated RBC 0 10^3/ul; Eosinophil % 0.7 % (0-6); Hematocrit 38 % (42-52); Hemoglobin 12.9 g/dl (14.0-18.0); Lymphocyte % 15.5 % (25-47); Mean Corpuscular HGB Conc 34 g/dl (31-36); Mean Corpuscular Hemoglobin 29 pg (27-31); Mean Corpuscular Volume 85 fL (80-94); Mean Platelet Volume 9.8 um3 (7.4-10.4); Nucleated Red Blood Cells % 0.2; Platelet Count 134 10^3/ul (150-450); Red Blood Count 4.52 10^6/ul (4.00-5.40); Red Cell Distribution Width 15 % (10.5-15); White Blood Count 7.2 10^3/ul (3.5-10.8)
--- NOTE | 2018-07-08 19:45 | CONSULT ---
Consult Consult: Ortho Consult H&P Date: 07/08/18 Requesting Service: ER CC: Right thumb pain HPI: 27M who was moving furniture with a spider infestation 5 days ago when he got his thumb caught between furniture. He didn't think much of it but woke up the next morning with the thumb swollen, painful and bruised. The swelling has improved but the pain and discoloration have worsened gradually over the last 4 days so he came into the ER today for evaluation. He reports excruciating pain. Denies fevers. PMH: Has h/o IVDU but has undergone rehab treatment and denies current usage. H/ o MRSA. Otherwise reports anxiety, scoliosis, anemia and kidney stones. 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 1/2 PPD smoker. Rare alcohol use. +marijuana. +mushrooms at [employer]. Family Hx: HTN, DM ROS: 14 pt ROS negative except for left calf wounds sustained from an injury at [employer]. Has been using neosporin and telfa. PE: Gen: In obvious discomfort. A&Ox3 Temp Pulse Resp BP Pulse Ox 97.1 F 111 18 115/49 99 07/08/18 16:23 07/08/18 16:23 07/08/18 19:14 07/08/18 19:27 07/08/18 16:23 CV: RRR. Extremities wwp ABD: soft and nontender LLE: 2 wounds without erythema or drainage. RUE: Thumb swollen and ecchymotic. No appreciable erythema. Pain with any attempted AROM/PROM. Very TTP. There is more mild swelling at thenar eminence and dorsum of hand. SILT in hand. Other 4 fingers without pain with AROM/PROM. + radial pulse. Painless elbow and shoulder ROM. Mild pain with wrist ROM. Imaging: Hand xrays without fracture WBC 7.2 CRP 27.90 ESR 19 Hgb/HCT 12.9/38 Plt 134 A/P: 27M with left thumb pain, swelling and ecchymosis worsening over the last 4 days. Infectious etiology is at the top of my differential diagnosis. I recommend CT hand, BCx's, empiric IV antibiotics after BCx's sent. Yunier Muñoz MD Update: CT without collection or gas. Exam stable between initial eval at 6pm and now at 9:30pm. Has not received abx yet. He is being admitted and IV abx to start. Will reassess in AM and if not improving he may need an I&D. Pt and mom in agreement with plan and will let me know if worsening. Yunier Muñoz MD
[2018-07-08] MEDS ORDERED: HYDROmorphone INJ1* 1 MG/ML SYRINGE IV SLOW PU PRN (20:53)
--- NOTE | 2018-07-08 20:59 | RAD ---
EXAM: CT Right Upper Extremity Without Intravenous Contrast, Hand CLINICAL HISTORY: 27 years old, male; Pain; Hand; Right; Additional info: Swelling, pain, assess for infection. 27y/o male endorsing pmh of MRSA in er for trauma to right hand while moving furniture 5 days ago. Right hand swollen and reddened. TECHNIQUE: Axial computed tomography images of the right hand without intravenous contrast. All CT scans at this facility use at least one of these dose optimization techniques: automated exposure control; mA and/or kV adjustment per patient size (includes targeted exams where dose is matched to clinical indication); or iterative reconstruction. Coronal and sagittal reformatted images were created and reviewed. COMPARISON: UEXTRWO CT EXTREMITY UPPER RIGHT W/O 06/21/2016 5:08 AM FINDINGS: Bones/joints: And is in flexed position. No fracture or dislocation. Soft tissues: Moderate edematous changes in the subcutaneous tissues and surrounding the extensor tendons most pronounced dorsally may be passive edema and/or cellulitis. No abscess is localized on nonenhanced study. No soft tissue gas. If there is suspicion of infected tenosynovitis consider MRI with contrast. IMPRESSION: 1. Moderate edematous changes in the subcutaneous tissues and surrounding the extensor tendons most pronounced dorsally which may be passive edema and/or cellulitis. No abscess is localized on nonenhanced study. No soft tissue gas. If there is suspicion of infected tenosynovitis consider MRI with contrast. 2. Hand is in flexed position. No fracture or dislocation.
[2018-07-08] MEDS ORDERED: Vancomycin per Pharmacy* NOTE FOLLOW UP SCH (21:00)
[2018-07-08] MEDS ORDERED: Vancomycin(*) 1,250 MG in NS 0.9% 250 ML* 250 ML IVPB ONE (21:00)
[2018-07-08] MEDS ORDERED: NS 0.9% 250 ML* 250 ML ONE (21:07)
[2018-07-08] MEDS ORDERED: Ondansetron INJ* 2 MG/ML VIAL IV PRN (21:16)
[2018-07-08 21:28] LABS: INR 0.98 (0.77-1.02)
[2018-07-08] MEDS ORDERED: Tetanus-Diptheria Toxoids* 0.5 ML SYRINGE IM ONE (21:32)
[2018-07-08 21:49] LABS: EGFR Non-African American 119.5 (>60)
[2018-07-08 22:14] LABS: EGFR Non-African American 121.3 (>60)
[2018-07-08] MEDS: HYDROmorphone INJ1* 1 MG/ML SYRINGE IV SLOW PU PRN (23:15)
[2018-07-08] MEDS: Cefepime 2 GM in Dextrose(*) 2 GM/50 ML BAG IV SCH (23:50)
--- NOTE | 2018-07-08 23:56 | HP ---
CC: Dr. Muñoz; Dr. Miller * HISTORY AND PHYSICAL: DATE OF ADMISSION: 07/08/18 PRIMARY CARE PROVIDER: None. ATTENDING PHYSICIAN WHILE IN THE HOSPITAL: Elmer Holliday M.D. * (report dictated by Joaquín Quinn NP). CONSULTING ORTHOPEDIST: Dr. Muñoz CONSULTING ID SPECIALIST: Dr. Miller CHIEF COMPLAINT: 1. Right hand and wrist pain. 2. Right hand swelling. 3. Right hand redness. HISTORY OF PRESENT ILLNESS: Mr. Breen is a 27-year-old male patient, who carries a history of IV drug use, anxiety, spinal stenosis, scoliosis, also history of MRSA in the past, and a history of I and D to his upper extremity due to retained needle from injecting. 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 He was able to move in. He did not think he broke anything at that point, it was about 5 days ago. He also was moving a piano and there was noted to be a spider's nest in there. He is unsure if he received a bite from one of the spiders. He says that when he woke up the next morning, the pain was worst in the right wrist. It was swollen and became excruciating over the last 24 hours and was getting progressively worse. He did admit to having some chills, but no documented fevers. He did admit to having nausea and vomiting, and he has noted that the pain was just unbearable, so he decided to come into the ER today to be treated. Denied any chest pain or shortness of breath. Denied any abdominal pain, but he does state that his hand and wrist had been significantly swollen and significantly painful, and just not getting any better. He had been trying to take ibuprofen 800 mg every 8 hours, but despite this the pain was just not being controlled. He came into our ER today. He was evaluated in the ED. He was evaluated by Dr. Muñoz as well. There was concern for underlying infection, so because of this, we were asked to evaluate for admission. PAST MEDICAL HISTORY: Significant for, 1. Spinal stenosis. 2. Scoliosis. 3. History of IV drug use. 4. History of MRSA. PAST SURGICAL HISTORY: Upper extremity I and D. HOME MEDICATIONS: He states he was taking Opana and Xanax, but he has not taken them for a couple of months. ALLERGIES TO MEDICATIONS: TYLENOL, which causes difficulty breathing, PENICILLIN and TRAMADOL. FAMILY HISTORY: Mother was diabetic. Father is healthy. SOCIAL HISTORY: He has a history of IV drug use. He does have a history of using marijuana occasionally. He does smoke half-a-pack of cigarettes a day. Rarely drinks alcohol. Surrogate decision maker is his mother. REVIEW OF SYSTEMS: There is no documented fever. He denied any significant weight change or double vision. No ear discharge. Denies any rhinorrhea. No sore throat. No thyroid enlargement. Denies having chest pain. There is no orthopnea. There is no nocturnal dyspnea. Denied having any abdominal pain. There was episodes of nausea and vomiting. There was no dysuria, no frequency. There was no seizure. No loss of consciousness, no pruritus, and no skin ulcerations. There was an exception that he does have skin ulceration to the left lower extremity. PHYSICAL EXAMINATION GENERAL: At this time, Mr. Breen is a 27-year-old male patient. He is sitting in the ED stretcher. He does appear to be in fair amount of pain, but he does not appear to be in any acute respiratory distress. VITAL SIGNS: Blood pressure 123/61, pulse 60, respirations 16, O2 sat 96%, temperature 98. HEENT: Head: Atraumatic, normocephalic. Eyes: EOMs intact. Sclerae anicteric and not pale. Throat: Oral mucosa appears to be moist. No oropharyngeal erythema. NECK: Supple. LUNGS: Clear to auscultation bilaterally. No wheezes, rales or rhonchi. HEART: Sounds S1, S2. Regular rate and rhythm. No murmurs, rubs or gallops. ABDOMEN: Soft, flat, nontender. Bowel sounds were present. EXTREMITIES: Pulses were 2+ throughout. He does have a good pulse on his right wrist and left wrist. The right upper extremity, again, the thumb was noted to be edematous and there is ecchymosis to the base of his thumb. There was some erythema noted to the dorsum of his hand. He has pain with active range of motion and passive range of motion. It was tender to touch. He is unable to make a fist or extend the fingers. There is a significant amount of swelling in the dorsum of the hand. He does have a positive radial pulse. Again, he has full range of motion to the elbow and to the shoulder. NEUROLOGIC: He is awake, alert, and oriented x3. His tongue is midline. Fiberglass Tube Molder are equal. He has no gross focal deficits. SKIN: Intact with the exception, he does have an open area, which he sustained from an incidence with rebar to the left lower extremity, but it does appear to be approximated to the wound that he sustained a couple of months ago, grass roots, it is about 3 cm x 3 cm. There are no signs of infection to the wound. Otherwise, skin is intact. DIAGNOSTIC STUDIES/LAB DATA: Labs, WBC 7.2, RBC of 4.52, hemoglobin 12.9, hematocrit of 38, platelet count of 134. INR 0.98. ESR 27.9. Other chemistry is pending. He had an upper extremity CT obtained today, which showed moderate edematous changes in the subcutaneous tissues and surrounding the extensor tendons most pronounced dorsally, which may be passive edema and/or cellulitis, no abscess is localized on nonenhanced study, no soft tissue gas. There is suspicious for infectious tenosynovitis, consider MRI with contrast, hand is in flex position. No fracture or dislocation. He had a hand x-ray, which showed normal right hand radiograph. Old medical records were reviewed. ASSESSMENT AND PLAN: Mr. Breen is a 27-year-old male patient, coming into the emergency department today with complaints of right hand swelling, pain in the setting of trauma, and no erythema, and ecchymosis to the right thumb. He was evaluated by Orthopedics. We were asked to evaluate for admission. He will be admitted under inpatient status for: 1. Right wrist cellulitis. At this point, we will go ahead and put him on antibiotics in the form of vanco, cefepime, and Flagyl, panculture the patient, and continue to follow him closely, should it worsen, have a low-threshold for incision and drainage of the wrist and again Dr. Muñoz would follow him. 2. History of spinal stenosis and scoliosis. Continue with pain management. 3. History of IV drug use. He states that he has been abstaining. Continue supportive care. 4. History of Methicillin-resistant Staphylococcus aureus, I am covering him with vanco. 5. DVT prophylaxis. He will be placed on SCDs. 6. Code status. Full code. 7. Fluids, electrolytes, and nutrition. He is n.p.o. after midnight. I am waiting on labs. If his labs are stable, he will be able to have a regular diet tonight. TIME SPENT: Time spent on admission was 60 minutes, greater than half the time was spent [id number] with the patient obtaining my history and physical, other half time was spent going over the plan of care with the patient and implementing the plan of care. I did discuss the plan of care with my attending, Dr. Holliday, he is in agreement. JOAQUÍN QUINN, CADY [id number]/CPS #: [id number] ZAC
[2018-07-09] MEDS: metroNIDAZOLE IV 500 MG/100ML* 500 MG/100 ML BAG IVPB SCH ×2 (00:28→07:58)
[2018-07-09] MEDS: NS 0.9% 1000 ML* 1,000 ML IV SCH ×2 (00:30→22:23)
[2018-07-09] MEDS: HYDROmorphone INJ1* 1 MG/ML SYRINGE IV SLOW PU PRN ×3 (01:35→07:52)
[2018-07-09] MEDS: Vancomycin(*) 1,250 MG in NS 0.9% 250 ML* 250 ML IVPB SCH ×3 (06:15→22:23)
[2018-07-09] MEDS ORDERED: HYDROmorphone INJ* 2 MG/ML CARPUJECT SYRINGE IV SLOW PU PRN (08:30)
--- NOTE | 2018-07-09 08:52 | PN ---
Progress Note - Progress Note Date of Service: 07/09/18 SOAP: Subjective: patient with continued complaints of right thumb pain; denies f/s/c Objective: Laboratory Last Values WBC 7.2 10^3/ul (3.5-10.8) 07/08/18 18:04 RBC 4.52 10^6/ul (4.00-5.40) 07/08/18 18:04 Hgb 12.9 g/dl (14.0-18.0) L 07/08/18 18:04 Hct 38 % (42-52) L 07/08/18 18:04 MCV 85 fL (80-94) 07/08/18 18: MCH 29 pg (27-31) 07/08/18 18: MCHC 34 g/dl (31-36) 07/08/18 18:04 RDW 15 % (10.5-15) 07/08/18 18:04 Plt Count 134 10^3/ul (150-450) L 07/08/18 18:04 MPV 9.8 um3 (7.4-10.4) 07/08/18 18:04 Neut % (Auto) 75.6 % (38-83) 07/08/18 18:04 Lymph % (Auto) 15.5 % (25-47) L 07/08/18 18:04 Person % (Auto) 8.0 % (0-7) H 07/08/18 18:04 Eos % (Auto) 0.7 % (0-6) 07/08/18 18: Baso % (Auto) 0.2 % (0-2) 07/08/18 18: Absolute Neuts (auto) 5.4 10^3/ul (1.5-7.7) 07/08/18 18:04 Absolute Lymphs (auto) 1.1 10^3/ul (1.0-4.8) 07/08/18 18:04 Absolute Monos (auto) 0.6 10^3/ul (0-0.8) 07/08/18 18:04 Absolute Eos (auto) 0.1 10^3/ul (0-0.6) 07/08/18 18:04 Absolute Basos (auto) 0 10^3/ul (0-0.2) 07/08/18 18:04 Absolute Nucleated RBC 0 10^3/ul 07/08/18 18:04 Nucleated RBC % 0.2 07/08/18 18:04 ESR 19 mm/Hr (0-14) H 07/08/18 18:04 INR (Anticoag Therapy) 0.98 (0.77-1.02) 07/08/18 21:12 Sodium 141 mmol/L (135-145) 07/08/18 21:13 Potassium 4.3 mmol/L (3.5-5.0) 07/08/18 21:13 Chloride 110 mmol/L (101-111) 07/08/18 21:13 Carbon Dioxide 25 mmol/L (22-32) 07/08/18 21:13 Anion Gap 6 mmol/L (2-11) 07/08/18 21:13 BUN 11 mg/dL (6-24) 07/08/18 21:13 Creatinine 0.78 mg/dL (0.67-1.17) 07/08/18 21:13 Est GFR ( Amer) 146.7 (>60) 07/08/18 21:13 Est GFR (Non-Af Amer) 121.3 (>60) 07/08/18 21:13 BUN/Creatinine Ratio 14.1 (8-20) 07/08/18 21:13 Glucose 78 mg/dL (70-100) 07/08/18 21:13 Lactic Acid 0.7 mmol/L (0.5-2.0) 07/08/18 21:12 Calcium 8.4 mg/dL (8.6-10.3) L 07/08/18 21:13 Total Bilirubin 0.40 mg/dL (0.2-1.0) 07/08/18 21:13 AST 23 U/L (13-39) 07/08/18 21:13 ALT 32 U/L (7-52) 07/08/18 21:13 Alkaline Phosphatase 67 U/L (34-104) 07/08/18 21:13 Total Creatine Kinase 158 U/L (10-223) 07/08/18 21:13 C-Reactive Protein 27.90 mg/L (<8.01) H 07/08/18 18:04 Total Protein 6.2 g/dL (6.4-8.9) L 07/08/18 21:13 Albumin 3.7 g/dL (3.2-5.2) 07/08/18 21:13 Globulin 2.5 g/dL (2-4) 07/08/18 21:13 Albumin/Globulin Ratio 1.5 (1-3) 07/08/18 21:13 Vital Signs Temp Pulse Resp BP Pulse Ox 98.1 F 47 17 88/61 94 07/09/18 07:31 07/09/18 07:31 07/09/18 07:52 07/09/18 07:31 07/09/18 07:31 PE: right thumb with significant erythema warmth, no tracking up forearm or into other fingers, 2+DR pulse, intact sensation Assessment: right thumb infection Plan: 1) continue Abx 2) Dr. Henderson ordered MRI with IV contrast to eval for fluid collection 3) NPO
[2018-07-09] MEDS: HYDROmorphone TAB* 4 MG PO PRN ×4 (10:02→23:35)
[2018-07-09] MEDS: Cefepime 2 GM in Dextrose(*) 2 GM/50 ML BAG IV SCH (10:57)
[2018-07-09] MEDS ORDERED: oxyCODONE SR TAB(*) 10 MG TAB.SR PO SCH (14:00)
[2018-07-09 14:34] LABS: ABS Basophils 0 10^3/ul (0-0.2); ABS Eosinophils 0.1 10^3/ul (0-0.6); ABS Lymphocytes 1.3 10^3/ul (1.0-4.8); ABS Monocytes 0.6 10^3/ul (0-0.8); ABS Neutrophils 3.7 10^3/ul (1.5-7.7); ABS Nucleated RBC 0 10^3/ul; Eosinophil % 1.6 % (0-6); Hematocrit 36 % (42-52); Hemoglobin 11.9 g/dl (14.0-18.0); Lymphocyte % 23.8 % (25-47); Mean Corpuscular HGB Conc 34 g/dl (31-36); Mean Corpuscular Hemoglobin 29 pg (27-31); Mean Corpuscular Volume 85 fL (80-94); Mean Platelet Volume 9.5 um3 (7.4-10.4); Nucleated Red Blood Cells % 0.1; Platelet Count 118 10^3/ul (150-450); Red Blood Count 4.17 10^6/ul (4.00-5.40); Red Cell Distribution Width 14 % (10.5-15); White Blood Count 5.7 10^3/ul (3.5-10.8)
[2018-07-09 14:42] LABS: INR 1.06 (0.77-1.02)
[2018-07-09 15:05] LABS: EGFR Non-African American 119.5 (>60)
--- NOTE | 2018-07-09 15:43 | PN ---
Subjective Date of Service: 07/09/18 Interval History: Patient was seen and examined earlier today. Complaints of right hand pain, better after PO Dilaudid. Has been NPO since midnight. Seen by orthopedic team this AM, MRI ordered, in addition to ESR and CRP. Nursing staff with difficulties getting a peripheral IV, midline access has been ordered. CT scan report reviewed, no abscess noted. Denies worsening hand pain, numbness or tingling. Spoke earlier with Dr. Dowd, who advised to d/c Flagyl at this time, continue Vanco and Cefepime. Patient constantly asking for pain meds modifications, with more frequent doses. Family History: Unchanged from Admission Social History: Unchanged from Admission Past Medical History: Unchanged from Admission Objective Active Medications: Hydromorphone HCl (Dilaudid Tab*) 4 mg PO Q4H PRN PRN Reason: PAIN Last Admin: 07/09/18 14:37 Dose: 4 mg Cefepime HCl (Maxipime 2 Gm In Dextrose Duplex (*)) 2 gm in 50 mls @ 100 mls/ hr IV Q12H [facility] Last Admin: 07/09/18 10:57 Dose: 100 mls/hr Sodium Chloride (Ns 0.9% 1000 Ml*) 1,000 mls @ 100 mls/hr IV PER RATE [facility] Stop: 07/10/18 07:29 Last Admin: 07/09/18 00:30 Dose: 100 mls/hr Vancomycin HCl 1,250 mg/ (Sodium Chloride) 250 mls @ 166.667 mls/hr IVPB Q8H [facility] Last Admin: 07/09/18 15:04 Dose: 166.667 mls/hr Ibuprofen (Motrin Tab*) 600 mg PO Q6H PRN PRN Reason: PAIN Ondansetron HCl (Zofran Inj*) 4 mg IV Q6H PRN PRN Reason: NAUSEA Pharmacy Consult (Vancomycin Per Pharmacy*) 1 note FOLLOW UP .VANC PER PHARMACY [facility] Pharmacy Profile Note (Vancomycin Trough Check) 1 note FOLLOW UP 05 ONE Stop: 07/10/18 05:31 Vital Signs - 8 hr 07/09/18 07/09/18 07/09/18 07:52 08:00 08:52 Temperature Pulse Rate Respiratory 17 16 16 Rate Blood Pressure (mmHg) O2 Sat by Pulse Oximetry 07/09/18 07/09/18 07/09/18 10:00 10:02 10:15 Temperature 98.1 F Pulse Rate 60 74 Respiratory 18 16 16 Rate Blood Pressure 123/44 136/80 (mmHg) O2 Sat by Pulse 93 100 Oximetry 07/09/18 07/09/18 12:00 14:37 Temperature Pulse Rate Respiratory 16 16 Rate Blood Pressure (mmHg) O2 Sat by Pulse Oximetry Oxygen Devices in Use Now: None Appearance: Appears comfortable and in NAD Eyes: No Scleral Icterus, PERRLA Ears/Nose/Mouth/Throat: Clear Oropharnyx, Mucous Membranes Moist Neck: NL Appearance and Movements; NL JVP, Trachea Midline Respiratory: Symmetrical Chest Expansion and Respiratory Effort, Clear to Auscultation Cardiovascular: NL Sounds; No Murmurs; No JVD, RRR Abdominal: NL Sounds; No Tenderness; No Distention Extremities: - - Right hand with marked swelling to thenar and dorsal thumb, extending to dorsum of hand with large area of ecchymosis. No open wound. No bleeding or discharge. Mild surrounding erythema. ROM limited due to pain and swelling. Radial pulse intact. Sensation intact. Neurological: Alert and Oriented x 3 Result Diagrams: 07/09/18 14:15 07/09/18 14:15 Additional Lab and Data: . Microbiology and Other Data: Microbiology 07/08/18 21:12 Aerobic Blood Culture - Preliminary Blood Venous Blood MRSA/MSSA (PCR) - Final Mrsa Negative S.aureus Negative Diagnostic Imaging: Patient Name: JEREMI HACKETT [place] Medical Record#: [id number] Ordering Physician: Raji Block MD Acct.#: [id number] : 1990 Age: 27 Sex: M Location: EMERGENCY DEPARTMENT Exam Date: 07/08/181650 ADM Status: REG ER Order Information: HAND - RIGHT MINIMUM 3 VIEWS IMPRESSION: Normal right hand radiograph. If the patient's symptoms persist, follow-up imaging is recommended. <Electronically signed by Sai Nicole MD in OV> 07/08/18 1726 Patient Name: JEREMI HACKETT [place] Medical Record#: [id number] Ordering Physician: Raji Block MD Acct.#: [id number] : 1990 Age: 27 Sex: M Location: EMERGENCY DEPARTMENT Exam Date: 07/08/181907 ADM Status: REG ER Order Information: CT EXTREMITY UPPER RIGHT W/O Accession Number: [id number] CPT: 96851 EXAM: CT Right Upper Extremity Without Intravenous Contrast, Hand IMPRESSION: 1. Moderate edematous changes in the subcutaneous tissues and surrounding the extensor tendons most pronounced dorsally which may be passive edema and/or cellulitis. No abscess is localized on nonenhanced study. No soft tissue gas. If there is suspicion of infected tenosynovitis consider MRI with contrast. 2. Hand is in flexed position. No fracture or dislocation. <Electronically signed by Augustus Turner MD in OV> 07/08/182057 EKG Data: . Assess/Plan/Problems-Billing Assessment: A 27 y/o male with hx IV drug abuse and MRSA, who sustained a crushing injury to right hand/thumb 5 days ago, presented to ED with increased right hand swelling and pain, admitted for treatment of possible cellulitis with IV antibiotics, orthopedic following for possible I&D if indicated. - Patient Problems (1) Cellulitis of hand, right Current Visit: Yes Status: Acute Comment: - Continue IV Vanco and cefepime - MRI pending, discussed with Dr. Carl, doubt any possibility of compartment syndrome, but will await MRI findings. - Remains NPO for possible I&D this evening. - Spoke with Nelly Wall d/c'ed per his recommendations. - Continue pain management. (2) Spinal stenosis Current Visit: Yes Status: Chronic Comment: - No active issues - Continue pain management (3) Hx MRSA infection Current Visit: Yes Status: Acute Comment: - Continue Vanco for time being (4) History of intravenous drug abuse Current Visit: Yes Status: Acute Comment: - Per patient, has been in rehab in the past - No use for past 5 years (5) DVT prophylaxis Current Visit: Yes Status: Acute Comment: - SCDs (6) Full code status Current Visit: Yes Status: Acute Status and Disposition: Inpatient. Anticipate discharge once medically stable.
[2018-07-09] MEDS: Ibuprofen TAB* 600 MG PO PRN (15:48)
[2018-07-09] MEDS ORDERED: Gadoteridol* (CONTRAST) 279.3 MG/ML 10 ML IV ONE (19:53)
--- NOTE | 2018-07-09 20:57 | RAD ---
EXAM: MR Right Upper Extremity Without And With Intravenous Contrast, Hand CLINICAL HISTORY: 27 years old, male; Signs and symptoms; Swelling; Hand; Right; Patient HX: H/o iv drug abuse. C/O right hand cellulitis & pain x 5 days; Additional info: R/O hematoma thenar space. *pt unable/ unwilling to straighten fingers- best positioning possible per pt condition TECHNIQUE: Multiplanar magnetic resonance images of the right hand without and with intravenous contrast. CONTRAST: 18 mL of PROHANCE administered intravenously. COMPARISON: OT - JURADO R HAND - RIGHT MINIMUM 3 VIEWS 07/08/2018 4:55 PM FINDINGS: LIGAMENTS: Medial collateral: Unremarkable. Lateral collateral: Unremarkable. Radial collateral: Unremarkable. Ulnar collateral: Unremarkable. TENDONS: Flexor: Unremarkable. Extensor: Unremarkable. Muscles: There are small serpiginous areas of nonenhancing fluid in the opponens pollicis and abductor pollicis muscles suggesting areas of abscess or necrosis. The largest collection measures 16 mm in length by 3 x 3 mm. There is surrounding cellulitis here as well as musculature between the first and second digits. Fluid: Unremarkable. No joint effusion. Cartilage: Unremarkable. Bones/joints: Unremarkable. Soft tissues: More diffuse edematous changes throughout the hand which may be additional cellulitis as well as passive edema. Other findings: No current evidence for infected tenosynovitis. IMPRESSION: 1. There are small serpiginous areas of nonenhancing fluid in the opponens pollicis and abductor pollicis muscles suggesting areas of abscess or necrosis. The largest collection measures 16 mm in length by 3 x 3 mm. There is surrounding cellulitis here as well as musculature between the first and second digits. 2. More diffuse edematous changes throughout the hand which may be additional cellulitis as well as passive edema. 3. No current evidence for infected tenosynovitis.
[2018-07-10] MEDS: Cefepime 2 GM in Dextrose(*) 2 GM/50 ML BAG IV SCH ×3 (02:13→15:57)
[2018-07-10] MEDS: HYDROmorphone TAB* 4 MG PO PRN ×5 (03:36→21:22)
[2018-07-10] MEDS ORDERED: Vancomycin Trough Check NOTE FOLLOW UP ONE (05:30)
[2018-07-10] MEDS: Vancomycin(*) 1,250 MG in NS 0.9% 250 ML* 250 ML IVPB SCH ×3 (08:31→22:25)
--- NOTE | 2018-07-10 10:38 | PN ---
Progress Note - Progress Note Date of Service: 07/10/18 SOAP: Subjective: Yesterday evening I examined patient and his exam had improved. MRI last night. Made NPO p midnight. This morning, the patien was sleeping comfortably when I entered room. Describes decreased pain. I asked him again about IVDU injection in hand. He denied again and insisted that this was a crush injury and no IVDU for 5 years. Objective: Comfortable-appearing, more so than previous days. Patient is still withdrawn and he avoids eye contact if possible. NAD Non-toxic appearing. RUE: - Swelling about thumb, decreased from yesterday - Spotty discoloration about thumb, unclear if ecchymosis or other, unchanged since yesterday. - Sensation intact all fingers - No pain whatsoever with PROM of thumb joint within limited ROM: 0-70 of IP, 0 -45 of MP, 0-30 of CMC. There is pain, inconsistent, with PROM beyond these limits. - No pain whatsoever with passive adduction of thumb to index finger - Patient is able to oppose thumb to small finger with some discomfort - Patient points to volar and dorsal thenar musculature as area of pain - Healing scratches on dorsum hand. Small area erythema dorsal hand just proximal to RF MP joint Selected Entries 07/10/18 07:45 Temperature 97.4 F Pulse Rate 62 Respiratory 12 Rate Blood Pressure 146/60 (mmHg) O2 Sat by Pulse 98 Oximetry Laboratory Tests 07/08/18 07/08/18 07/09/18 18:04 18:04 14:15 WBC 7.2 5.7 Neut % (Auto) 75.6 64.4 ESR 19 H 24 H C-Reactive Protein 27.90 H 07/09/18 14:15 WBC Neut % (Auto) ESR C-Reactive Protein 18.36 H Microbiology 07/08/18 21:12 Blood Venous Blood MRSA/MSSA (PCR) - Final Staphylococcus Epidermidis Mrsa Negative S.aureus Negative 07/08/18 21:12 Blood Venous Aerobic Blood Culture - Preliminary 07/08/18 21:12 Blood Venous Staphylococcus Epidermidis MRI c contrast- swelling about thumb and index finger, soft tissue swelling, possible cellulitis. Some long thin fluid collections, the largest being 16mm x 3x3mm. Hematoma versus abscess. Assessment: HD 3 R thumb swelling Possible crush injury R thumb Possible cellulitis, small abscess in R hand in patient with a history of IVDU Plan: - No clear indication to operate. Patient's swelling and pain are improving. No clear infected tenosynovitis on exam. No clear joint infection on exam. No clear thenar space infection on exam. Possible abscess is small at [id number] in size. - Patient can eat. - Agree with Hospitalist management - Recommend icing 20 minutes on and off to reduce soft tissue swelling in case this is simply a crush injury with soft tissue swelling. - Recommend continue IV antibiotics for a possible small abscess and cellulitis in the right hand. - Pain control. - Orthopedics will continue to follow. - Recommend IV antibiotics and inpatient care until pain and swelling improve additionally. - Recommend serial CRP, every other day, to monitor improvement given the patient's at times inconsistent exam and history - Patient can be given a removable wrist brace to wear if comfortable.
[2018-07-10] MEDS: Ibuprofen TAB* 600 MG PO PRN (12:46)
[2018-07-10 13:12] LABS: ABS Basophils 0 10^3/ul (0-0.2); ABS Eosinophils 0.1 10^3/ul (0-0.6); ABS Lymphocytes 1.4 10^3/ul (1.0-4.8); ABS Monocytes 0.5 10^3/ul (0-0.8); ABS Neutrophils 4.3 10^3/ul (1.5-7.7); ABS Nucleated RBC 0 10^3/ul; Eosinophil % 1.9 % (0-6); Hematocrit 36 % (42-52); Hemoglobin 12.2 g/dl (14.0-18.0); Lymphocyte % 22.3 % (25-47); Mean Corpuscular HGB Conc 35 g/dl (31-36); Mean Corpuscular Hemoglobin 29 pg (27-31); Mean Corpuscular Volume 84 fL (80-94); Mean Platelet Volume 9.7 um3 (7.4-10.4); Nucleated Red Blood Cells % 0; Platelet Count 128 10^3/ul (150-450); Red Cell Distribution Width 14 % (10.5-15); White Blood Count 6.4 10^3/ul (3.5-10.8)
[2018-07-10] MEDS ORDERED: Ibuprofen TAB* 600 MG PO SCH (15:00)
[2018-07-10] MEDS: Omeprazole CAP* 20 MG PO SCH (15:58)
--- NOTE | 2018-07-10 17:09 | PN ---
Subjective Date of Service: 07/10/18 Interval History: Pt seen and examined. Meds and labs reviewed. CC: Right hand pain 06/11 ROS: Denied VALLADARES/dizziness, F/C, N/V, CP, SOB, increased cough, sputum production , abd pain, diarrhea, constipation, dysuria, throat pain, and new skin lesions. The rest of the 14 point ROS are unremarkable. PHYSICAL EXAM: GEN APPEARANCE: Awake, not in acute distress HEENT: NC/AT, PERRLA, moist oral mucosa, (-) throat erythema NECK: Soft, supple, (-) cervical LAD, (-)JVD HEART: S1S2 WNL, RRR, No MRG CHEST: CTA, BL, GAE, No W/R/R ABD: Soft, ND/NT, NABS 4x Q EXT: No C/C/Right hand with erythema and edema, seems to be improving from drawn borders SKIN: Warm to touch PSYCH: No active psychosis, hallucinations, depression, SI/HI Family History: Unchanged from Admission Social History: Unchanged from Admission Past Medical History: Unchanged from Admission Objective Active Medications: Heparin Sodium (Porcine) (Heparin Flush Picc/Ml/Cvc(*)) 1 ml FLUSH 0600,1800 [facility]; Protocol Hydromorphone HCl (Dilaudid Tab*) 4 mg PO Q4H PRN PRN Reason: PAIN Last Admin: 07/10/18 16:19 Dose: 4 mg Vancomycin HCl 1,250 mg/ (Sodium Chloride) 250 mls @ 166.667 mls/hr IVPB Q8H [facility] Last Admin: 07/10/18 14:00 Dose: 166.667 mls/hr Cefepime HCl (Maxipime 2 Gm In Dextrose Duplex (*)) 2 gm in 50 mls @ 100 mls/ hr IV Q12HR@0300,1500 [facility] Last Admin: 07/10/18 15:57 Dose: 100 mls/hr Ibuprofen (Motrin Tab*) 600 mg PO Q6HR [facility] Stop: 07/13/18 17:59 Morphine Sulfate (Morphine Inj ((Syringe))*) 1 mg IV Q2H PRN PRN Reason: PAIN Omeprazole (Prilosec Cap*) 20 mg PO DAILY@0730 [facility] Last Admin: 07/10/18 15:58 Dose: 20 mg Ondansetron HCl (Zofran Inj*) 4 mg IV Q6H PRN PRN Reason: NAUSEA Pharmacy Consult (Vancomycin Per Pharmacy*) 1 note FOLLOW UP .VANC PER PHARMACY [facility] Pharmacy Profile Note (Vancomycin Trough Check) 1 note FOLLOW UP 529 ONE Stop: 07/11/18 05:31 Vital Signs - 8 hr 07/10/18 07/10/18 07/10/18 09:25 11:13 12:13 Temperature 98.0 F Pulse Rate 58 Respiratory 15 14 15 Rate Blood Pressure 144/54 (mmHg) O2 Sat by Pulse 98 Oximetry 07/10/18 07/10/18 14:03 16:19 Temperature Pulse Rate Respiratory 16 17 Rate Blood Pressure (mmHg) O2 Sat by Pulse Oximetry Oxygen Devices in Use Now: None Result Diagrams: 07/10/18 12:54 07/09/18 14:15 Additional Lab and Data: . Microbiology and Other Data: Microbiology 07/08/18 21:12 Aerobic Blood Culture - Preliminary Blood Venous Blood MRSA/MSSA (PCR) - Final Mrsa Negative S.aureus Negative Diagnostic Imaging: Patient Name: JEREMI HACKETT Medical Record#: [id number] Ordering Physician: Raji Block MD Acct.#: [id number] : 1990 Age: 27 Sex: M Location: EMERGENCY DEPARTMENT Exam Date: 07/08/18 1651 ADM Status: REG ER Order Information: HAND - RIGHT MINIMUM 3 VIEWS IMPRESSION: Normal right hand radiograph. If the patient's symptoms persist, follow-up imaging is recommended. <Electronically signed by Sai Nicole MD in OV> 07/08/18 1726 Patient Name: JEREMI HACKETT Medical Record#: [id number] Ordering Physician: Raji Block MD Acct.#: [id number] : 1990 Age: 27 Sex: M Location: EMERGENCY DEPARTMENT Exam Date: 07/08/18 1908 ADM Status: REG ER Order Information: CT EXTREMITY UPPER RIGHT W/O Accession Number: [id number] CPT: 15296 EXAM: CT Right Upper Extremity Without Intravenous Contrast, Hand IMPRESSION: 1. Moderate edematous changes in the subcutaneous tissues and surrounding the extensor tendons most pronounced dorsally which may be passive edema and/or cellulitis. No abscess is localized on nonenhanced study. No soft tissue gas. If there is suspicion of infected tenosynovitis consider MRI with contrast. 2. Hand is in flexed position. No fracture or dislocation. <Electronically signed by Augustus Turner MD in OV> 07/08/182057 EKG Data: . Assess/Plan/Problems-Billing Assessment: A 27 y/o male with hx IV drug abuse and MRSA, who sustained a crushing injury to right hand/thumb 5 days ago, presented to ED with increased right hand swelling and pain, admitted for treatment of possible cellulitis with IV antibiotics, orthopedic following for possible I&D if indicated. - Patient Problems (1) Cellulitis of hand, right Current Visit: Yes Status: Acute Code(s): L03.113 - CELLULITIS OF RIGHT UPPER LIMB SNOMED Code(s): 76889601 Comment: -Blood culture reveals S. epidermidis - Continue IV Vanco and cefepime - MRI result and pt reviewed by Dr. Abdul today and pt currently does not have indication for surgery and will defer - Placed pt on Ibuprofen for 3 days with PPI support along with PRN Morphine with appropriate holding orders. Status and Disposition: Inpatient. Anticipate discharge once medically stable.
[2018-07-10] MEDS: Ibuprofen TAB* 600 MG PO SCH (18:20)
[2018-07-10 18:57] LABS: Urine Appearance Clear; Urine Blood Negative (Negative); Urine Color Yellow; Urine Ketones Negative (Negative); Urine Protein Negative (Negative); Urine Red Blood Cell Absent (Absent); Urine Specific Gravity 1.016 (1.010-1.030); Urine Urobilinogen Negative (Negative); Urine White Blood Cell Trace(0-5/hpf) (Absent)
[2018-07-10] MEDS: Morphine INJ* 2 MG/ML 1 ML SYRINGE (TWO MG - NEW SYRINGE VERSION) IV PRN (22:30)
[2018-07-11] MEDS: Ibuprofen TAB* 600 MG PO SCH ×5 (00:30→23:45)
[2018-07-11] MEDS: HYDROmorphone TAB* 4 MG PO PRN ×6 (01:26→23:46)
[2018-07-11] MEDS: Cefepime 2 GM in Dextrose(*) 2 GM/50 ML BAG IV SCH ×2 (03:41→15:11)
[2018-07-11] MEDS: Morphine INJ* 2 MG/ML 1 ML SYRINGE (TWO MG - NEW SYRINGE VERSION) IV PRN (04:08)
[2018-07-11] MEDS ORDERED: Vancomycin Trough Check NOTE FOLLOW UP ONE (05:30)
[2018-07-11 05:45] LABS: ABS Neutrophils 2.9 10^3/ul (1.5-7.7); Hematocrit 31 % (42-52); Hemoglobin 10.4 g/dl (14.0-18.0); Mean Corpuscular HGB Conc 34 g/dl (31-36); Mean Corpuscular Hemoglobin 29 pg (27-31); Mean Corpuscular Volume 85 fL (80-94); Red Blood Count 3.62 10^6/ul (4.00-5.40); Red Cell Distribution Width 14 % (10.5-15); White Blood Count 4.9 10^3/ul (3.5-10.8)
[2018-07-11 05:49] LABS: EGFR Non-African American 117.8 (>60)
[2018-07-11 06:06] LABS: ABS Basophils 0 10^3/ul (0-0.2); ABS Eosinophils 0.1 10^3/ul (0-0.6); ABS Lymphocytes 1.4 10^3/ul (1.0-4.8); ABS Monocytes 0.5 10^3/ul (0-0.8); ABS Nucleated RBC 0 10^3/ul; Eosinophil % 2.4 % (0-6); Mean Platelet Volume 9.7 um3 (7.4-10.4); Nucleated Red Blood Cells % 0.1; Platelet Count 96 10^3/ul (150-450)
--- NOTE | 2018-07-11 09:11 | PN ---
Progress Note - Progress Note Date of Service: 07/11/18 SOAP: Subjective: patient resting no significant pain Objective: Vital Signs Temp Pulse Resp BP Pulse Ox 98.1 F 55 17 151/80 100 07/11/18 03:12 07/11/18 03:12 07/11/18 05:34 07/11/18 03:12 07/11/18 03:12 Laboratory Last Values WBC 4.9 10^3/ul (3.5-10.8) 07/11/18 05:20 RBC 3.62 10^6/ul (4.00-5.40) L 07/11/18 05:20 Hgb 10.4 g/dl (14.0-18.0) L 07/11/18 05:20 Hct 31 % (42-52) L 07/11/18 05:20 MCV 85 fL (80-94) 07/11/18 05:20 MCH 29 pg (27-31) 07/11/18 05:20 MCHC 34 g/dl (31-36) 07/11/18 05:20 RDW 14 % (10.5-15) 07/11/18 05:20 Plt Count 96 10^3/ul (150-450) L 07/11/18 05:20 MPV 9.7 um3 (7.4-10.4) 07/11/18 05:20 Neut % (Auto) 58.5 % (38-83) 07/11/18 05:20 Lymph % (Auto) 29.0 % (25-47) 07/11/18 05:20 [place] % (Auto) 9.6 % (0-7) H 07/11/18 05:20 Eos % (Auto) 2.4 % (0-6) 07/11/18 05:20 Baso % (Auto) 0.5 % (0-2) 07/11/18 05:20 Absolute Neuts (auto) 2.9 10^3/ul (1.5-7.7) 07/11/18 05:20 Absolute Lymphs (auto) 1.4 10^3/ul (1.0-4.8) 07/11/18 05:20 Absolute Monos (auto) 0.5 10^3/ul (0-0.8) 07/11/18 05:20 Absolute Eos (auto) 0.1 10^3/ul (0-0.6) 07/11/18 05:20 Absolute Basos (auto) 0 10^3/ul (0-0.2) 07/11/18 05:20 Absolute Nucleated RBC 0 10^3/ul 07/11/18 05:20 Nucleated RBC % 0.1 07/11/18 05:20 ESR 23 mm/Hr (0-14) H 07/10/18 12:54 INR (Anticoag Therapy) 1.06 (0.77-1.02) H 07/09/18 14:15 Sodium 141 mmol/L (135-145) 07/11/18 05:20 Potassium 4.0 mmol/L (3.5-5.0) 07/11/18 05:20 Chloride 111 mmol/L (101-111) 07/11/18 05:20 Carbon Dioxide 27 mmol/L (22-32) 07/11/18 05:20 Anion Gap 3 mmol/L (2-11) 07/11/18 05:20 BUN 11 mg/dL (6-24) 07/11/18 05:20 Creatinine 0.80 mg/dL (0.67-1.17) 07/11/18 05:20 Est GFR ( Amer) 142.5 (>60) 07/11/18 05:20 Est GFR (Non-Af Amer) 117.8 (>60) 07/11/18 05:20 BUN/Creatinine Ratio 13.8 (8-20) 07/11/18 05:20 Glucose 100 mg/dL (70-100) 07/11/18 05:20 Lactic Acid 0.7 mmol/L (0.5-2.0) 07/08/18 21:12 Calcium 8.1 mg/dL (8.6-10.3) L 07/11/18 05:20 Phosphorus 3.4 mg/dL (2.5-5.0) 07/11/18 05:20 Magnesium 2.0 mg/dL (1.9-2.7) 07/11/18 05:20 Total Bilirubin 0.30 mg/dL (0.2-1.0) 07/11/18 05:20 AST 15 U/L (13-39) 07/11/18 05:20 ALT 18 U/L (7-52) 07/11/18 05:20 Alkaline Phosphatase 53 U/L (34-104) 07/11/18 05:20 Total Creatine Kinase 158 U/L (10-223) 07/08/18 21:13 C-Reactive Protein 19.65 mg/L (<8.01) H 07/10/18 12:54 Total Protein 5.6 g/dL (6.4-8.9) L 07/11/18 05:20 Albumin 3.3 g/dL (3.2-5.2) 07/11/18 05:20 Globulin 2.3 g/dL (2-4) 07/11/18 05:20 Albumin/Globulin Ratio 1.4 (1-3) 07/11/18 05:20 Urine Color Yellow 07/10/18 18:45 Urine Appearance Clear 07/10/18 18:45 Urine pH 6.0 (5-9) 07/10/18 18:45 Ur Specific [place] 1.016 (1.010-1.030) 07/10/18 18:45 Urine Protein Negative (Negative) 07/10/18 18:45 Urine Ketones Negative (Negative) 07/10/18 18:45 Urine Blood Negative (Negative) 07/10/18 18:45 Urine Nitrate Negative (Negative) 07/10/18 18:45 Urine Bilirubin Negative (Negative) 07/10/18 18:45 Urine Urobilinogen Negative (Negative) 07/10/18 18:45 Ur Leukocyte Esterase Trace (Negative) A 07/10/18 18:45 Urine WBC (Auto) Trace(0-5/hpf) (Absent) 07/10/18 18:45 Urine RBC (Auto) Absent (Absent) 07/10/18 18:45 Urine Bacteria Absent (Absent) 07/10/18 18:45 Urine Glucose Negative (Negative) 07/10/18 18:45 Vancomycin Trough 21.9 mcg/mL 07/10/18 12:54 Urine Opiates Screen Presumptive positive (None Detect) A 07/10/18 18:45 Ur Barbiturates Screen None detected (None Detect) 07/10/18 18:45 Ur Phencyclidine Scrn None detected (None Detect) 07/10/18 18:45 Ur Amphetamines Screen None detected (None Detect) 07/10/18 18:45 U Benzodiazepines Scrn None detected (None Detect) 07/10/18 18:45 Urine Cocaine Screen None detected (None Detect) 07/10/18 18:45 U Cannabinoids Screen Presumptive positive (None Detect) A 07/10/18 18:45 right thumb redness/swelling improving, 2+DR pulse, intact sensation, good cap refill Assessment: right thumb possible infection vs crush injury Plan: 1) continue IV abx 2) continue pain control 3) will continue to monitor; no indication to operate at this time
[2018-07-11] MEDS: Omeprazole CAP* 20 MG PO SCH (10:00)
[2018-07-11] MEDS: Vancomycin(*) 1,250 MG in NS 0.9% 250 ML* 250 ML IVPB SCH (10:16)
--- NOTE | 2018-07-11 13:00 | PN ---
Subjective Date of Service: 07/11/18 Interval History: Pt seen and examined. Meds and labs reviewed. CC: Tolerable right hand pain, 6/10, however, very painful when moved ROS: Denied VALLADARES/dizziness, F/C, N/V, CP, SOB, increased cough, sputum production , abd pain, diarrhea, constipation, dysuria, throat pain, and new skin lesions. The rest of the 14 point ROS are unremarkable. PHYSICAL EXAM: GEN APPEARANCE: Awake, not in acute distress HEENT: NC/AT, PERRLA, moist oral mucosa, (-) throat erythema NECK: Soft, supple, (-) cervical LAD, (-)JVD HEART: S1S2 WNL, RRR, No MRG CHEST: CTA, BL, GAE, No W/R/R ABD: Soft, ND/NT, NABS 4x Q EXT: No C/C/Right hand with erythema and edema, continues to improve from drawn borders, tender to touch SKIN: Warm to touch PSYCH: No active psychosis, hallucinations, depression, SI/HI Family History: Unchanged from Admission Social History: Unchanged from Admission Past Medical History: Unchanged from Admission Objective Active Medications: Enoxaparin Sodium (Lovenox(*)) 40 mg SUBCUT Q24H [facility] Gabapentin (Neurontin Cap(*)) 200 mg PO TID [facility] Heparin Sodium (Porcine) (Heparin Flush Picc/Ml/Cvc(*)) 1 ml FLUSH 0600,1800 [facility], [facility]; Protocol Last Admin: 07/11/18 10:16 Dose: Not Given Hydromorphone HCl (Dilaudid Tab*) 4 mg PO Q4H PRN PRN Reason: PAIN Last Admin: 07/11/18 10:15 Dose: 4 mg Cefepime HCl (Maxipime 2 Gm In Dextrose Duplex (*)) 2 gm in 50 mls @ 100 mls/ hr IV Q12HR@0300,1500 [facility] Last Admin: 07/11/18 03:41 Dose: 100 mls/hr Vancomycin HCl 1,000 mg/ (Sodium Chloride) 250 mls @ 166.667 mls/hr IVPB Q8H [facility] Ibuprofen (Motrin Tab*) 600 mg PO Q6HR [facility] Stop: 07/13/18 17:59 Last Admin: 07/11/18 11:13 Dose: 600 mg Morphine Sulfate (Morphine Inj ((Syringe))*) 1 mg IV Q2H PRN PRN Reason: PAIN Last Admin: 07/11/18 04:08 Dose: 1 mg Omeprazole (Prilosec Cap*) 20 mg PO DAILY@0730 [facility] Last Admin: 07/11/18 10:00 Dose: 20 mg Ondansetron HCl (Zofran Inj*) 4 mg IV Q6H PRN PRN Reason: NAUSEA Pharmacy Consult (Vancomycin Per Pharmacy*) 1 note FOLLOW UP .VANC PER PHARMACY [facility], [facility]1983 Pharmacy Profile Note (Vancomycin Trough Check) 1 note FOLLOW UP ONCE ONE Stop: 07/13/18 05:31 Vital Signs - 8 hr 07/11/18 07/11/18 07/11/18 05:18 05:34 07:15 Temperature 97.3 F Pulse Rate 51 Respiratory 17 17 17 Rate Blood Pressure 152/90 (mmHg) O2 Sat by Pulse 99 Oximetry 07/11/18 07/11/18 07/11/18 07:35 08:00 10:15 Temperature Pulse Rate Respiratory 18 18 18 Rate Blood Pressure (mmHg) O2 Sat by Pulse Oximetry 07/11/18 11:57 Temperature 97.9 F Pulse Rate 53 Respiratory 17 Rate Blood Pressure 148/85 (mmHg) O2 Sat by Pulse 100 Oximetry Oxygen Devices in Use Now: None Result Diagrams: 07/11/18 05:20 07/11/18 05:20 Additional Lab and Data: . Microbiology and Other Data: Microbiology 07/08/18 21:12 Aerobic Blood Culture - Preliminary Blood Venous Blood MRSA/MSSA (PCR) - Final Mrsa Negative S.aureus Negative Diagnostic Imaging: Patient Name: JEREMI HACKETT Medical Record#: [id number] Ordering Physician: Raji Block MD Acct.#: [id number] : 1990 Age: 27 Sex: M Location: EMERGENCY DEPARTMENT Exam Date: 07/08/18 165 ADM Status: REG ER Order Information: HAND - RIGHT MINIMUM 3 VIEWS IMPRESSION: Normal right hand radiograph. If the patient's symptoms persist, follow-up imaging is recommended. <Electronically signed by Sai Nicole MD in OV> 07/08/18 1259 Patient Name: JEREMI HACKETT Medical Record#: [id number] Ordering Physician: Raji Block MD Acct.#: [id number] : 1990 Age: 27 Sex: M Location: EMERGENCY DEPARTMENT Exam Date: 07/08/181907 ADM Status: REG ER Order Information: CT EXTREMITY UPPER RIGHT W/O Accession Number: [id number] CPT: 86797 EXAM: CT Right Upper Extremity Without Intravenous Contrast, Hand IMPRESSION: 1. Moderate edematous changes in the subcutaneous tissues and surrounding the extensor tendons most pronounced dorsally which may be passive edema and/or cellulitis. No abscess is localized on nonenhanced study. No soft tissue gas. If there is suspicion of infected tenosynovitis consider MRI with contrast. 2. Hand is in flexed position. No fracture or dislocation. <Electronically signed by Augustus Turner MD in OV> 07/08/182057 EKG Data: . Assess/Plan/Problems-Billing Assessment: A 27 y/o male with hx IV drug abuse and MRSA, who sustained a crushing injury to right hand/thumb 5 days ago, presented to ED with increased right hand swelling and pain, admitted for treatment of possible cellulitis with IV antibiotics, orthopedic following for possible I&D if indicated. - Patient Problems (1) Cellulitis of hand, right Current Visit: Yes Status: Acute Code(s): L03.113 - CELLULITIS OF RIGHT UPPER LIMB SNOMED Code(s): 92619312 Comment: -Blood culture reveals S. epidermidis - Continue IV Vanco and cefepime - MRI result and pt reviewed by Dr. Abdul today and pt currently does not have indication for surgery and will defer - Continue on Ibuprofen for 3 days with PPI support along with PRN Morphine with appropriate holding orders. -Will place pt on Gabapentin for adjuvant pain therapy -Appreciate Sx F/U---at this time, continues to have no indication for surgery -Will touch base with ID for any further recommendations (2) Anemia Current Visit: Yes Status: Acute Code(s): D64.9 - ANEMIA, UNSPECIFIED SNOMED Code(s): 933952055 Comment: -Will check Iron studies, B12, and folate levels in AM (3) IVDU (intravenous drug user) Current Visit: Yes Status: Acute Code(s): F19.90 - OTHER PSYCHOACTIVE SUBSTANCE USE, UNSPECIFIED, UNCOMPLICATED SNOMED Code(s): 177045686 Comment: -Pt adamant he has maintained sobriety other than marijuana, (+) opiates on urine screen possibly due to his prescribed narcotics given above (4) DVT prophylaxis Current Visit: Yes Status: Acute Code(s): DTX2039 - SNOMED Code(s): 185352333 Comment: -Will place on Lovenox SQ -Continue SCDs Status and Disposition: -Possible D/C in 1-2 days
[2018-07-11] MEDS: Gabapentin CAP(*) 100 MG PO SCH ×2 (14:26→21:31)
[2018-07-11] MEDS: Enoxaparin(*) 40 MG/0.4 ML SYR SUBCUT SCH (14:28)
[2018-07-11] MEDS: Vancomycin(*) 1,000 MG in NS 0.9% 250 ML* 250 ML IVPB SCH (22:12)
[2018-07-12] MEDS: Cefepime 2 GM in Dextrose(*) 2 GM/50 ML BAG IV SCH ×2 (03:11→17:21)
[2018-07-12] MEDS: HYDROmorphone TAB* 4 MG PO PRN ×5 (03:38→20:45)
[2018-07-12] MEDS: Vancomycin(*) 1,000 MG in NS 0.9% 250 ML* 250 ML IVPB SCH ×3 (05:48→21:47)
[2018-07-12 06:07] LABS: ABS Basophils 0 10^3/ul (0-0.2); ABS Eosinophils 0.1 10^3/ul (0-0.6); ABS Lymphocytes 1.2 10^3/ul (1.0-4.8); ABS Monocytes 0.4 10^3/ul (0-0.8); ABS Neutrophils 2.6 10^3/ul (1.5-7.7); ABS Nucleated RBC 0 10^3/ul; Eosinophil % 1.9 % (0-6); Hematocrit 30 % (42-52); Hemoglobin 10.3 g/dl (14.0-18.0); Lymphocyte % 27.5 % (25-47); Mean Corpuscular HGB Conc 34 g/dl (31-36); Mean Corpuscular Hemoglobin 29 pg (27-31); Mean Corpuscular Volume 85 fL (80-94); Mean Platelet Volume 9.9 um3 (7.4-10.4); Nucleated Red Blood Cells % 0.1; Platelet Count 101 10^3/ul (150-450); Red Blood Count 3.54 10^6/ul (4.00-5.40); Red Cell Distribution Width 14 % (10.5-15); White Blood Count 4.2 10^3/ul (3.5-10.8)
[2018-07-12 06:28] LABS: EGFR Non-African American 147.1 (>60)
[2018-07-12] MEDS: Ibuprofen TAB* 600 MG PO SCH ×4 (07:37→23:29)
[2018-07-12] MEDS: Omeprazole CAP* 20 MG PO SCH (07:38)
[2018-07-12] MEDS: Gabapentin CAP(*) 100 MG PO SCH ×3 (09:18→20:46)
[2018-07-12] MEDS: Enoxaparin(*) 40 MG/0.4 ML SYR SUBCUT SCH (11:51)
--- NOTE | 2018-07-12 12:23 | CONS ---
CONSULTATION REPORT: DATE OF CONSULT: 07/12/18 REQUESTING PHYSICIAN: Melquiades Garcia MD CONSULTING SERVICE: Infectious Disease. REASON FOR CONSULT: Right thumb infection. IMPRESSION: 1. Right dorsal hand cellulitis improving in the setting of severe right thumb pain and decreased range of motion. The rest of the hand has improved, but the right thumb remains painful with decreased flexion and purplish mottling on exam. An MRI on 07/09/18 showed serpiginous fluid collections, which were not enhancing on the opponens pollicis and abductor pollicis muscles suggesting areas of abscess or necrosis. Question progression of muscle necrosis or myositis. 2. Spinal stenosis. 3. History of methicillin-resistant Staphylococcus aureus infection. RECOMMENDATION: Continue broad-spectrum antibiotics. Ask Orthopedics to come back and evaluate him. I am concerned that he may need incision and debridement because of the degree of pain and lack of range of motion. We will also add a CK on to his labs that were drawn today. HISTORY OF PRESENT ILLNESS: This is a 27-year-old man, who notes crush injury to his right hand few days before admission on 07/08/18. Because of the progression of pain, swelling, redness throughout the dorsum of his hand and decreased range of motion of his fingers, he came to the hospital on 07/08/18. The CT showed some soft tissue swelling. He was afebrile. He did not have leukocytosis. He had mild elevation of C-reactive protein to about 20. He was started on broad-spectrum antibiotics and the erythema on the dorsum of the hand and edema and range of motion of second through fifth fingers are improved , but the right thumb is still very painful, hurts to bend it, and he now has some purplish color. The pain does come up through his wrist. It does not hurt too much to move his wrist. He had an MRI on 07/09/18 that showed some serpiginous collections in the opponens pollicis and abductor pollicis muscles. Over the last couple of days, the pain in the right thumb may have eased slightly, but is still quite severe. PAST MEDICAL HISTORY: 1. MRSA infection. 2. Spinal stenosis. 3. Scoliosis. 4. Upper extremity I and D. MEDICATIONS: 1. Cefepime 2 g every 12 hours. 2. Enoxaparin. 3. Gabapentin. 4. Heparin flush through PICC. 5. Dilaudid as needed. 6. Ibuprofen every 6 hours. 7. Zofran as needed. 8. Vancomycin 1 g every 8 hours. ALLERGIES: TYLENOL, PENICILLIN, TRAMADOL. FAMILY HISTORY: His mother has diabetes. His father is healthy. SOCIAL HISTORY: Nonsmoker, past injection drug, none recently. REVIEW OF SYSTEMS: All negative to 14-point review of systems except as noted above in the history of present illness. PHYSICAL EXAM: Vital Signs: Temperature 36.4, heart rate 50, respiratory rate 18, blood pressure 157/63, oxygen saturation 98% on room air. General: He is awake, not in distress. Neurologic: He is oriented x3, follows all commands. HEENT: There is no conjunctival hemorrhage. Oropharynx without lesions. Neck: Supple without mass. Heart: Regular rate and rhythm without murmurs, rubs, or gallops. Lungs: Clear to auscultation bilaterally. Abdomen: Soft, nontender, and nondistended. There are bowel sounds present. Skin: There is no rash or splinter hemorrhage. Musculoskeletal: In the right thumb, there is trace edema, tenderness to palpation throughout the thumb and decreased range of motion with flexion of the right thumb. There is no crepitus or fluctuance. There is no erythema. There is purplish discoloration from the thumb down to the wrist. LABORATORY DATA: Creatinine 0.6. White blood cell count 4, hemoglobin 10, platelets 101. Urinalysis showed trace leukocyte esterase, although it is negative. Please see impressions and recommendations outlined above. Thanks for asking me to see Mr. Breen in consultation. [id number]/[facility] #: [id number] [facility]
--- NOTE | 2018-07-12 13:58 | PN ---
Progress Note - Progress Note Date of Service: 07/12/18 SOAP: Subjective: []patient seen and examined at bedside. His pain and range of motion of his right thumb are improving. Denies feeling of fever or chills. Objective: []General: NAD, non-toxic appearing, carries on appropriate conversation RUE: right thumb with mild swelling decreased from previous exams. Spotty discoloration that is blanchable and red-purple in nature remains, discoloration decreased from previous. There is no spread of discoloration outside of demarcated lines, area does seem to be receding. Sensation is intact to light touch throughout all digits. Consistent exam from previous with PROM 0- 70 of IP, 0-45 of MP, 0-30 of CMC with endpoints limited by severe pain. Greatest area of tenderness to palpation is over thenar eminence. Nonpainful wrist and elbow ROM. Forearm is compressible and nontender Assessment: []Right thumb infection vs crush injury Plan: [] ROM as tolerated IV abx per medicine Will continue to follow exam and discuss ID's findings with Dr Henderson Vital Signs Temp 98.1 F 07/12/18 11:50 Pulse 56 07/12/18 11:50 Resp 20 07/12/18 12:41 BP 150/77 07/12/18 11:50 Pulse Ox 100 07/12/18 11:50 Intake & Output 07/11/18 07/12/18 07/12/18 18:59 06:59 18:59 Intake Total 1440 610 480 Balance 1440 610 480 Intake: IV Fluids 360 150 cefepime 50 125 ns 60 25 vancomycin 250 IVPB 260 vancomycin 260 Oral 1080 200 480 Other: Estimated Void Medium # Bowel Movements 0 # Voids 3 1 Laboratory Last Values WBC 4.2 10^3/ul (3.5-10.8) 07/12/18 05:46 RBC 3.54 10^6/ul (4.00-5.40) L 07/12/18 05:46 Hgb 10.3 g/dl (14.0-18.0) L 07/12/18 05:46 Hct 30 % (42-52) L 07/12/18 05:46 MCV 85 fL (80-94) 07/12/18 05:46 MCH 29 pg (27-31) 07/12/18 05:46 MCHC 34 g/dl (31-36) 07/12/18 05:46 RDW 14 % (10.5-15) 07/12/18 05:46 Plt Count 101 10^3/ul (150-450) L 07/12/18 05:46 MPV 9.9 um3 (7.4-10.4) 07/12/18 05:46 Neut % (Auto) 60.7 % (38-83) 07/12/18 05:46 Lymph % (Auto) 27.5 % (25-47) 07/12/18 05:46 Cole % (Auto) 9.3 % (0-7) H 07/12/18 05:46 Eos % (Auto) 1.9 % (0-6) 07/12/18 05:46 Baso % (Auto) 0.6 % (0-2) 07/12/18 05:46 Absolute Neuts (auto) 2.6 10^3/ul (1.5-7.7) 07/12/18 05:46 Absolute Lymphs (auto) 1.2 10^3/ul (1.0-4.8) 07/12/18 05:46 Absolute Monos (auto) 0.4 10^3/ul (0-0.8) 07/12/18 05:46 Absolute Eos (auto) 0.1 10^3/ul (0-0.6) 07/12/18 05:46 Absolute Basos (auto) 0 10^3/ul (0-0.2) 07/12/18 05:46 Absolute Nucleated RBC 0 10^3/ul 07/12/18 05:46 Nucleated RBC % 0.1 07/12/18 05:46 ESR 23 mm/Hr (0-14) H 07/10/18 12:54 INR (Anticoag Therapy) 1.06 (0.77-1.02) H 07/09/18 14:15 Sodium 141 mmol/L (135-145) 07/12/18 05:46 Potassium 3.7 mmol/L (3.5-5.0) 07/12/18 05:46 Chloride 110 mmol/L (101-111) 07/12/18 05:46 Carbon Dioxide 27 mmol/L (22-32) 07/12/18 05:46 Anion Gap 4 mmol/L (2-11) 07/12/18 05:46 BUN 11 mg/dL (6-24) 07/12/18 05:46 Creatinine 0.66 mg/dL (0.67-1.17) L 07/12/18 05:46 Est GFR ( Amer) 177.9 (>60) 07/12/18 05:46 Est GFR (Non-Af Amer) 147.1 (>60) 07/12/18 05:46 BUN/Creatinine Ratio 16.7 (8-20) 07/12/18 05:46 Glucose 88 mg/dL (70-100) 07/12/18 05:46 Lactic Acid 0.7 mmol/L (0.5-2.0) 07/08/18 21:12 Calcium 8.1 mg/dL (8.6-10.3) L 07/12/18 05:46 Phosphorus 3.4 mg/dL (2.5-5.0) 07/11/18 05:20 Magnesium 2.0 mg/dL (1.9-2.7) 07/11/18 05:20 Iron 52 ug/dL (50-212) 07/12/18 05:46 TIBC 245 mcg/dL (250-450) L 07/12/18 05:46 % Saturation 21 % (15-55) 07/12/18 05:46 Unsat Iron Binding 193 ug/dL 07/12/18 05:46 Transferrin 175 mg/dL (203-362) L 07/12/18 05:46 Ferritin 45.2 ng/mL (24-336) 07/12/18 05:46 Total Bilirubin 0.30 mg/dL (0.2-1.0) 07/11/18 05:20 AST 15 U/L (13-39) 07/11/18 05:20 ALT 18 U/L (7-52) 07/11/18 05:20 Alkaline Phosphatase 53 U/L (34-104) 07/11/18 05:20 Total Creatine Kinase 51 U/L (10-223) 07/12/18 05:46 C-Reactive Protein 19.65 mg/L (<8.01) H 07/10/18 12:54 Total Protein 5.6 g/dL (6.4-8.9) L 07/11/18 05:20 Albumin 3.3 g/dL (3.2-5.2) 07/11/18 05:20 Globulin 2.3 g/dL (2-4) 07/11/18 05:20 Albumin/Globulin Ratio 1.4 (1-3) 07/11/18 05:20 Vitamin B12 315 pg/mL (180-914) 07/12/18 05:46 Folate 9.83 ng/mL (>3.99) 07/12/18 05:46 Urine Color Yellow 07/10/18 18:45 Urine Appearance Clear 07/10/18 18:45 Urine pH 6.0 (5-9) 07/10/18 18:45 Ur Specific [place] 1.016 (1.010-1.030) 07/10/18 18:45 Urine Protein Negative (Negative) 07/10/18 18:45 Urine Ketones Negative (Negative) 07/10/18 18:45 Urine Blood Negative (Negative) 07/10/18 18:45 Urine Nitrate Negative (Negative) 07/10/18 18:45 Urine Bilirubin Negative (Negative) 07/10/18 18:45 Urine Urobilinogen Negative (Negative) 07/10/18 18:45 Ur Leukocyte Esterase Trace (Negative) A 07/10/18 18:45 Urine WBC (Auto) Trace(0-5/hpf) (Absent) 07/10/18 18:45 Urine RBC (Auto) Absent (Absent) 07/10/18 18:45 Urine Bacteria Absent (Absent) 07/10/18 18:45 Urine Glucose Negative (Negative) 07/10/18 18:45 Vancomycin Trough 22.1 mcg/mL 07/11/18 05:30 Urine Opiates Screen Presumptive positive (None Detect) A 07/10/18 18:45 Ur Barbiturates Screen None detected (None Detect) 07/10/18 18:45 Ur Phencyclidine Scrn None detected (None Detect) 07/10/18 18:45 Ur Amphetamines Screen None detected (None Detect) 07/10/18 18:45 U Benzodiazepines Scrn None detected (None Detect) 07/10/18 18:45 Urine Cocaine Screen None detected (None Detect) 07/10/18 18:45 U Cannabinoids Screen Presumptive positive (None Detect) A 07/10/18 18:45
--- NOTE | 2018-07-12 17:03 | PN ---
Subjective Date of Service: 07/12/18 Interval History: Pt seen and examined. Meds and labs reviewed. CC: Tolerable right hand pain, however, very painful when moved ROS: Denied VALLADARES/dizziness, F/C, N/V, CP, SOB, increased cough, sputum production , abd pain, diarrhea, constipation, dysuria, throat pain, and new skin lesions. The rest of the 14 point ROS are unremarkable. PHYSICAL EXAM: GEN APPEARANCE: Awake, not in acute distress HEENT: NC/AT, PERRLA, moist oral mucosa, (-) throat erythema NECK: Soft, supple, (-) cervical LAD, (-)JVD HEART: S1S2 WNL, RRR, No MRG CHEST: CTA, BL, GAE, No W/R/R ABD: Soft, ND/NT, NABS 4x Q EXT: No C/C/Right hand with erythema and edema, continues to improve from drawn borders, tender to touch SKIN: Warm to touch PSYCH: No active psychosis, hallucinations, depression, SI/HI Family History: Unchanged from Admission Social History: Unchanged from Admission Past Medical History: Unchanged from Admission Objective Active Medications: Enoxaparin Sodium (Lovenox(*)) 40 mg SUBCUT Q24H [facility] Last Admin: 07/12/18 11:51 Dose: 40 mg Gabapentin (Neurontin Cap(*)) 200 mg PO TID [facility] Last Admin: 07/12/18 14:46 Dose: 200 mg Heparin Sodium (Porcine) (Heparin Flush Picc/Ml/Cvc(*)) 1 ml FLUSH 0600,1800 [facility]; Protocol Last Admin: 07/12/18 06:56 Dose: Not Given Hydromorphone HCl (Dilaudid Tab*) 4 mg PO Q4H PRN PRN Reason: PAIN Last Admin: 07/12/18 16:17 Dose: 4 mg Cefepime HCl (Maxipime 2 Gm In Dextrose Duplex (*)) 2 gm in 50 mls @ 100 mls/ hr IV Q12HR@0300,1500 [facility] Last Admin: 07/12/18 03:11 Dose: 100 mls/hr Vancomycin HCl 1,000 mg/ (Sodium Chloride) 250 mls @ 166.667 mls/hr IVPB Q8H [facility] Last Admin: 07/12/18 14:46 Dose: 166.667 mls/hr Ibuprofen (Motrin Tab*) 600 mg PO Q6HR [facility] Stop: 07/13/18 17:59 Last Admin: 07/12/18 11:49 Dose: 600 mg Morphine Sulfate (Morphine Inj ((Syringe))*) 1 mg IV Q2H PRN PRN Reason: PAIN Last Admin: 07/11/18 04:08 Dose: 1 mg Omeprazole (Prilosec Cap*) 20 mg PO DAILY@0730 [facility] Last Admin: 07/12/18 07:38 Dose: 20 mg Ondansetron HCl (Zofran Inj*) 4 mg IV Q6H PRN PRN Reason: NAUSEA Pharmacy Consult (Vancomycin Per Pharmacy*) 1 note FOLLOW UP .VANC PER PHARMACY [facility] Pharmacy Profile Note (Vancomycin Trough Check) 1 note FOLLOW UP ONCE ONE Stop: 07/13/18 05:31 Vital Signs - 8 hr 07/12/18 07/12/18 07/12/18 09:18 09:40 11:50 Temperature 98.1 F Pulse Rate 56 Respiratory 16 16 16 Rate Blood Pressure 150/77 (mmHg) O2 Sat by Pulse 100 Oximetry 07/12/18 07/12/18 07/12/18 12:41 14:46 14:51 Temperature Pulse Rate Respiratory 20 18 18 Rate Blood Pressure (mmHg) O2 Sat by Pulse Oximetry 07/12/18 07/12/18 15:29 16:17 Temperature 97.9 F Pulse Rate 52 Respiratory 16 20 Rate Blood Pressure 155/96 (mmHg) O2 Sat by Pulse 100 Oximetry Oxygen Devices in Use Now: None Result Diagrams: 07/12/18 05:46 07/12/18 05:46 Additional Lab and Data: . Microbiology and Other Data: Microbiology 07/08/18 21:12 Aerobic Blood Culture - Preliminary Blood Venous Blood MRSA/MSSA (PCR) - Final Mrsa Negative S.aureus Negative Diagnostic Imaging: Patient Name: JEREMI HACKETT Medical Record#: [id number] Ordering Physician: Raji Block MD Acct.#: [id number] : 1990 Age: 27 Sex: M Location: EMERGENCY DEPARTMENT Exam Date: 07/08/18 1651 ADM Status: REG ER Order Information: HAND - RIGHT MINIMUM 3 VIEWS IMPRESSION: Normal right hand radiograph. If the patient's symptoms persist, follow-up imaging is recommended. <Electronically signed by Sai Nicole MD in OV> 07/08/18 1726 Patient Name: JEREMI HACKETT Medical Record#: [id number] Ordering Physician: Raji Block MD Acct.#: [id number] : 1990 Age: 27 Sex: M Location: EMERGENCY DEPARTMENT Exam Date: 07/08/181907 ADM Status: REG ER Order Information: CT EXTREMITY UPPER RIGHT W/O Accession Number: [id number] CPT: 84571 EXAM: CT Right Upper Extremity Without Intravenous Contrast, Hand IMPRESSION: 1. Moderate edematous changes in the subcutaneous tissues and surrounding the extensor tendons most pronounced dorsally which may be passive edema and/or cellulitis. No abscess is localized on nonenhanced study. No soft tissue gas. If there is suspicion of infected tenosynovitis consider MRI with contrast. 2. Hand is in flexed position. No fracture or dislocation. <Electronically signed by Augustus Turner MD in OV> 07/08/182057 EKG Data: . Assess/Plan/Problems-Billing Assessment: A 27 y/o male with hx IV drug abuse and MRSA, who sustained a crushing injury to right hand/thumb 5 days ago, presented to ED with increased right hand swelling and pain, admitted for treatment of possible cellulitis with IV antibiotics, orthopedic following for possible I&D if indicated. - Patient Problems (1) Cellulitis of hand, right Current Visit: Yes Status: Acute Code(s): L03.113 - CELLULITIS OF RIGHT UPPER LIMB SNOMED Code(s): 63965595 Comment: -D/W Dr. Miller who recommended re-eval by Orthopedics given previous MRI findings, who mentioned they will touch base with Dr. Miller given they feel he is improving enough that he does not need surgery at this timewill defer -Blood culture reveals S. epidermidis (unclear if contaminant or cause of infection) - Continue IV Vanco and cefepime---will await discussion between ID for meds needed on D/C after discussion with ortho - Continue on Ibuprofen for 1 more day with PPI support along with PRN Morphine with appropriate holding orders. -Continue Gabapentin for adjuvant pain therapy -Appreciate Sx F/U---at this time, continues to have no indication for surgery -Will touch base with ID for any further recommendations (2) Anemia Current Visit: Yes Status: Acute Code(s): D64.9 - ANEMIA, UNSPECIFIED SNOMED Code(s): 911287041 Comment: -Likely Iron deficient given low normal iron sats and low normal ferritin in the setting of an acute infection; will continue to observe for now given mild iron deficiency at best - B12, and folate levels normal (3) IVDU (intravenous drug user) Current Visit: Yes Status: Acute Code(s): F19.90 - OTHER PSYCHOACTIVE SUBSTANCE USE, UNSPECIFIED, UNCOMPLICATED SNOMED Code(s): 160047222 Comment: -Pt adamant he has maintained sobriety other than marijuana, (+) opiates on urine screen possibly due to his prescribed narcotics given above (4) DVT prophylaxis Current Visit: Yes Status: Acute Code(s): LUD2460 - SNOMED Code(s): 319237926 Comment: -Will place on Lovenox SQ -Continue SCDs Status and Disposition: -Possible D/C in 1-2 days
--- NOTE | 2018-07-12 20:01 | PN ---
Progress Note - Progress Note Date of Service: 07/12/18 SOAP: Subjective: Patient reports that he is 25% improved pain-ayala since admission. Patient has maintained that he has not used IV drugs x 5 years. [facility] records show otherwise. 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 Patient had an I&D of abscess caused by IVDU. He then had removal of a hypodermic needle in a separate procedure. He had claimed that he fell on his mother's sewing needle, but eventually admitted to physicians that he was using IV drugs. I mentioned these procedures to the patient today and he barely acknowledged them. This further supports the notion of IVDU for this injury rather than a crush injury as originally described. Spoke with ID (Angela) today about the patient. We discussed an abscess versus possible chemical reaction from toxins injected with IV drugs. I told Anglea that I think the thumb area itself has significantly decreased swelling compared with 07/09/18. It is still however painful, although with some possible pain med seeking behavior and inconsistent description of pain on physical exam, he is difficult to assess in terms of progress of improvement. I agree completely with the ordering of CK values- a great suggestion. Agree that Staph Epidermidis in blood cultures is likely a contaminant. Hospitalist called with questions about patient's abdomen and left lower leg. Patient reports an abrasion left lower leg at [facility] and a scab on his RLE that opened up recently with itching. Objective: RUE - Comfortable - Swelling about thumb and mottling of the skin. Decreased swelling compared with 2 days ago. - Pain-free opposition thumb and index finger - No consistent pain with PROM joints of thumb - Pain with opposition thumb to small finger. LLE - posterior lower leg abrasion, healing, partial thickness skin - no significant drainage or surrounding skin erythema Abdomen - pinpoint defect in skin, ~ 4 x 4 mm, full-thickness - some minimal serous drainage on dressing Selected Entries 07/12/18 15:29 Temperature 97.9 F Pulse Rate 52 Respiratory 16 Rate Blood Pressure 155/96 (mmHg) O2 Sat by Pulse 100 Oximetry Laboratory Tests 07/09/18 07/09/18 07/10/18 14:15 14:15 12:54 ESR 24 H 23 H Total Creatine Kinase C-Reactive Protein 18.36 H 09/08/18 09/10/18 12:54 05:46 ESR Total Creatine Kinase 51 C-Reactive Protein 19.65 H Assessment: - HD 5 R thumb swelling - R thumb likely abscess versus chemical reaction to IVDU - L lower leg abrasion posterior - Skin defect, small ulcer RLE Plan: - No significant muscle necrosis by CK testing - Will follow R thumb with IV abx and time for now - If improvement stalls or is insufficient, I would consider I&D - Value ID co-input - Recommend for L lower leg a non-adherent dressing - Defer to gen surg on abdomen skin ulcer, but a DSD seems sufficient - Recommend social work consult for very probable continued IV drug use
[2018-07-13] MEDS: HYDROmorphone TAB* 4 MG PO PRN ×3 (00:55→10:26)
[2018-07-13] MEDS: Cefepime 2 GM in Dextrose(*) 2 GM/50 ML BAG IV SCH ×2 (03:10→16:25)
[2018-07-13] MEDS ORDERED: Vancomycin Trough Check NOTE FOLLOW UP ONE (05:30)
[2018-07-13] MEDS: Ibuprofen TAB* 600 MG PO SCH ×2 (05:42→12:03)
[2018-07-13 06:05] LABS: EGFR Non-African American 121.3 (>60); Vancomycin Trough 10.6 mcg/mL
[2018-07-13] MEDS: Vancomycin(*) 1,000 MG in NS 0.9% 250 ML* 250 ML IVPB SCH ×3 (06:19→21:53)
[2018-07-13] MEDS: Omeprazole CAP* 20 MG PO SCH (08:16)
[2018-07-13] MEDS: Gabapentin CAP(*) 100 MG PO SCH ×3 (08:18→21:07)
--- NOTE | 2018-07-13 11:13 | CONS ---
CC: Dr. Muñoz; [facility]; Dr. Mp Miller * SURGICAL CONSULTATION REPORT: DATE OF CONSULT: 07/13/18 HISTORY OF PRESENT ILLNESS: I was contacted by the hospitalist service to evaluate Mr. Breen, a 27-year-old IV drug abuser, who is admitted with a complex hand infection, who noted to have an open wound on his abdominal wall as well as traumatic wounds at his left lower leg. The patient claims to have, for the most part, quit IV drug abuse after a 5- year stint approximately 5 years ago with only few relapses, the last of which he claims was 2 years ago. The patient describes being at [facility] over the summer and bumping into a stake that held on a tent and suffered injury to the left lower leg. This has been slow to heal and the patient has just been keeping this dressed. He now complains of some swelling and pain at the left popliteal fossa. Additionally, the patient states that he itched an area on his right lower abdomen in an area where he previously used to inject and a superficial abdominal wall vein. This had gotten infected in the past and he noted some drainage of thin fluid not too long ago. Rest of his chart is briefly reviewed along with his past medical history. PHYSICAL EXAM: On focused exam, the patient has a draining sinus of the anterior abdominal wall likely from a superficial inferior epigastric vessel injection site. This likely does not go into the abdomen at all and is more likely chronic wound that does not require any additional intervention. Review of the left leg reveals 2 abrasions approximately 2 x 2 cm in the posterior lower leg, approximately 5 cm superior to this. The popliteal fossa has mild induration and swelling. I cannot appreciate fluctuance. It is minimally tender to touch. The abrasion showed no depth. The patient has full range of motion. IMPRESSION: Intravenous drug abuser, who reports having not used needles over 2 years, but showed signs of infection at the superficial areas of likely injection sites, both at the popliteal fossa and at the hand. RECOMMENDATIONS: Antibiotics. I do recommend ultrasound of the left leg to rule out abscess. If this does show fluid collection, the patient would benefit from incision and drainage, otherwise continue antibiotics and observation. 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 This may be treated definitively with excision of the sinus tract and reapproximation, but the patient is poor-risk candidate for this surgery that it is not necessary as the patient is not showing signs of infection at the site. I will discuss with the hospitalist service recommendation for ultrasound. [id number] #: [id number] MTDD
[2018-07-13] MEDS: Enoxaparin(*) 40 MG/0.4 ML SYR SUBCUT SCH (12:05)
--- NOTE | 2018-07-13 12:10 | RAD ---
INDICATION: Left popliteal swelling evaluate for abscess. COMPARISON: There are no relevant prior studies available for comparison. TECHNIQUE: Multiple real-time images of the left popliteal fossa were obtained. FINDINGS: There is edema present within the left popliteal fossa. No focal fluid collection or abscess is seen. IMPRESSION: NO EVIDENCE FOR ABSCESS.
--- NOTE | 2018-07-13 14:18 | PN ---
Progress Note - Progress Note Date of Service: 07/13/18 SOAP: Subjective: []Patient seen and examined at bedside. His right thumb is no longer painful at all and he can use it as he normally would without pain. He denies any feeling of fever or chills. He denies any worsening pain, swelling or redness of the thumb. Objective: []General: NAD, non-toxic appearing, carries on appropriate conversation RUE: right thumb with minimal swelling, decreased from previous exams. Spotty discoloration fading and well within demarcated boarders. Sensation is intact to light touch throughout all digits. He is entirely nontender to palpation throughout the right wrist, hand and digits. Full active and passive ROM of IP, MCP, CMC joints. Nonpainful wrist and elbow ROM. Forearm is compressible and nontender. Assessment: []Right thumb infection vs crush injury Plan: [] ROM as tolerated Abx per medicine and ID. Patient was seen alongside ID today. Will continue to follow exam while in house, condition of thumb improved significantly overnight and does not require washout at this time. I anticipate he will D/C home when medically ready. He should follow up in our orthopedic office with Dr. Henderson next week, sooner with any return, worsening or new symptoms. If condition does again worsen, an I&D would be considered Vital Signs Temp 97.7 F 07/13/18 07:45 Pulse 55 07/13/18 11:11 Resp 16 07/13/18 14:32 BP 139/72 07/13/18 11:11 Pulse Ox 96 07/13/18 07:45 Intake & Output 07/12/18 07/13/18 07/13/18 18:59 06:59 18:59 Intake Total 7887 853 5578 Balance 2117 833 2220 Intake: IV Fluids 280 60 ns 30 60 vancomycin 250 IVPB 300 cefepime 50 vancomycin 250 Oral 1010 0 1400 Other: Estimated Void Medium # Bowel Movements 0 # Voids 2 0 Laboratory Last Values WBC 4.2 10^3/ul (3.5-10.8) 07/12/18 05:46 RBC 3.54 10^6/ul (4.00-5.40) L 07/12/18 05:46 Hgb 10.3 g/dl (14.0-18.0) L 07/12/18 05:46 Hct 30 % (42-52) L 07/12/18 05:46 MCV 85 fL (80-94) 07/12/18 05:46 MCH 29 pg (27-31) 07/12/18 05:46 MCHC 34 g/dl (31-36) 07/12/18 05:46 RDW 14 % (10.5-15) 07/12/18 05:46 Plt Count 101 10^3/ul (150-450) L 07/12/18 05:46 MPV 9.9 um3 (7.4-10.4) 07/12/18 05:46 Neut % (Auto) 60.7 % (38-83) 07/12/18 05:46 Lymph % (Auto) 27.5 % (25-47) 07/12/18 05:46 Collier % (Auto) 9.3 % (0-7) H 07/12/18 05:46 Eos % (Auto) 1.9 % (0-6) 07/12/18 05:46 Baso % (Auto) 0.6 % (0-2) 07/12/18 05:46 Absolute Neuts (auto) 2.6 10^3/ul (1.5-7.7) 07/12/18 05:46 Absolute Lymphs (auto) 1.2 10^3/ul (1.0-4.8) 07/12/18 05:46 Absolute Monos (auto) 0.4 10^3/ul (0-0.8) 07/12/18 05:46 Absolute Eos (auto) 0.1 10^3/ul (0-0.6) 07/12/18 05:46 Absolute Basos (auto) 0 10^3/ul (0-0.2) 07/12/18 05:46 Absolute Nucleated RBC 0 10^3/ul 07/12/18 05:46 Nucleated RBC % 0.1 07/12/18 05:46 ESR 23 mm/Hr (0-14) H 07/10/18 12:54 INR (Anticoag Therapy) 1.06 (0.77-1.02) H 07/09/18 14:15 Sodium 141 mmol/L (135-145) 07/12/18 05:46 Potassium 3.7 mmol/L (3.5-5.0) 07/12/18 05:46 Chloride 110 mmol/L (101-111) 07/12/18 05:46 Carbon Dioxide 27 mmol/L (22-32) 07/12/18 05:46 Anion Gap 4 mmol/L (2-11) 07/12/18 05:46 BUN 12 mg/dL (6-24) 07/13/18 05:30 Creatinine 0.78 mg/dL (0.67-1.17) 07/13/18 05:30 Est GFR ( Amer) 146.7 (>60) 07/13/18 05:30 Est GFR (Non-Af Amer) 121.3 (>60) 07/13/18 05:30 BUN/Creatinine Ratio 16.7 (8-20) 07/12/18 05:46 Glucose 88 mg/dL (70-100) 07/12/18 05:46 Lactic Acid 0.7 mmol/L (0.5-2.0) 07/08/18 21:12 Calcium 8.1 mg/dL (8.6-10.3) L 07/12/18 05:46 Phosphorus 3.4 mg/dL (2.5-5.0) 07/11/18 05:20 Magnesium 2.0 mg/dL (1.9-2.7) 07/11/18 05:20 Iron 52 ug/dL (50-212) 07/12/18 05:46 TIBC 245 mcg/dL (250-450) L 07/12/18 05:46 % Saturation 21 % (15-55) 07/12/18 05:46 Unsat Iron Binding 193 ug/dL 07/12/18 05:46 Transferrin 175 mg/dL (203-362) L 07/12/18 05:46 Ferritin 45.2 ng/mL (24-336) 07/12/18 05:46 Total Bilirubin 0.30 mg/dL (0.2-1.0) 07/11/18 05:20 AST 15 U/L (13-39) 07/11/18 05:20 ALT 18 U/L (7-52) 07/11/18 05:20 Alkaline Phosphatase 53 U/L (34-104) 07/11/18 05:20 Total Creatine Kinase 51 U/L (10-223) 07/12/18 05:46 C-Reactive Protein 19.65 mg/L (<8.01) H 07/10/18 12:54 Total Protein 5.6 g/dL (6.4-8.9) L 07/11/18 05:20 Albumin 3.3 g/dL (3.2-5.2) 07/11/18 05:20 Globulin 2.3 g/dL (2-4) 07/11/18 05:20 Albumin/Globulin Ratio 1.4 (1-3) 07/11/18 05:20 Vitamin B12 315 pg/mL (180-914) 07/12/18 05:46 Folate 9.83 ng/mL (>3.99) 07/12/18 05:46 Urine Color Yellow 07/10/18 18:45 Urine Appearance Clear 07/10/18 18:45 Urine pH 6.0 (5-9) 07/10/18 18:45 Ur Specific Kite 1.016 (1.010-1.030) 07/10/18 18:45 Urine Protein Negative (Negative) 07/10/18 18:45 Urine Ketones Negative (Negative) 07/10/18 18:45 Urine Blood Negative (Negative) 07/10/18 18:45 Urine Nitrate Negative (Negative) 07/10/18 18:45 Urine Bilirubin Negative (Negative) 07/10/18 18:45 Urine Urobilinogen Negative (Negative) 07/10/18 18:45 Ur Leukocyte Esterase Trace (Negative) A 07/10/18 18:45 Urine WBC (Auto) Trace(0-5/hpf) (Absent) 07/10/18 18:45 Urine RBC (Auto) Absent (Absent) 07/10/18 18:45 Urine Bacteria Absent (Absent) 07/10/18 18:45 Urine Glucose Negative (Negative) 07/10/18 18:45 Vancomycin Trough 10.6 mcg/mL 07/13/18 05:30 Urine Opiates Screen Presumptive positive (None Detect) A 07/10/18 18:45 Ur Barbiturates Screen None detected (None Detect) 07/10/18 18:45 Ur Phencyclidine Scrn None detected (None Detect) 07/10/18 18:45 Ur Amphetamines Screen None detected (None Detect) 07/10/18 18:45 U Benzodiazepines Scrn None detected (None Detect) 07/10/18 18:45 Urine Cocaine Screen None detected (None Detect) 07/10/18 18:45 U Cannabinoids Screen Presumptive positive (None Detect) A 07/10/18 18:45
[2018-07-13] MEDS: HYDROmorphone TAB* 2 MG PO PRN ×3 (14:32→23:03)
--- NOTE | 2018-07-13 14:34 | PN ---
Subjective Date of Service: 07/13/18 Interval History: I was approached by the nurse couple of times today in regard to the patient anxiety and the fact he is "not happy" with his providers as they do television reporter him regarding his previous history and pain. I have met Mr Strange for the first time today with the social economist Coco and the patient's nurse. I did attend to his questions and concerns to the best of my ability. I explained that I will consult with psychiatry for his anxiety and I would not support Xanax 2 mg QID [facility] consulting with psychiatry first. His I-STOP shows last Xanax was prescribed on 07/18/17 # 60 tabs for 15 days supply by Irma Weinberg NP. There was no other Xanax prescriptions after that. When he was asked about other maintenance drug for anxiety he voiced concerns about side effect that he had with Cymbalta, lexapro and few others that he could not recall their name. In regard to his hand pain he report 40% improvement of his pain and some improvement of his movement but he still have pain and tenderness. He has been using dilaudid 4 mg Q4hrs ATC. He was refusing his gabapentin as it triggers his anxiety and does not like morphine as it does not help. He is eating well and denies nausea, or vomiting. Family History: Unchanged from Admission Social History: Unchanged from Admission Past Medical History: Unchanged from Admission Objective Active Medications: Enoxaparin Sodium (Lovenox(*)) 40 mg SUBCUT Q24H [facility] Last Admin: 07/13/18 12:05 Dose: 40 mg Gabapentin (Neurontin Cap(*)) 100 mg PO BID [facility] Heparin Sodium (Porcine) (Heparin Flush Picc/Ml/Cvc(*)) 1 ml FLUSH 0600,1800 [facility]; Protocol Last Admin: 07/13/18 06:13 Dose: Not Given Hydromorphone HCl (Dilaudid Tab*) 2 mg PO Q4H PRN PRN Reason: PAIN Cefepime HCl (Maxipime 2 Gm In Dextrose Duplex (*)) 2 gm in 50 mls @ 100 mls/ hr IV Q12HR@0300,1500 [facility] Last Admin: 07/13/18 03:10 Dose: 100 mls/hr Vancomycin HCl 1,000 mg/ (Sodium Chloride) 250 mls @ 166.667 mls/hr IVPB Q8H [facility] Last Admin: 07/13/18 06:19 Dose: 166.667 mls/hr Ibuprofen (Motrin Tab*) 600 mg PO Q6HR [facility] Stop: 07/13/18 17:59 Last Admin: 07/13/18 12:03 Dose: 600 mg Omeprazole (Prilosec Cap*) 20 mg PO DAILY@0730 [facility] Last Admin: 07/13/18 08:16 Dose: 20 mg Ondansetron HCl (Zofran Inj*) 4 mg IV Q6H PRN PRN Reason: NAUSEA Pharmacy Consult (Vancomycin Per Pharmacy*) 1 note FOLLOW UP .VANC PER PHARMACY [facility] Pharmacy Profile Note (Vancomycin Trough Check) 1 note FOLLOW UP ONCE ONE Stop: 07/16/18 05:31 Vital Signs - 8 hr 07/13/18 07/13/18 07/13/18 07:45 08:00 08:20 Temperature 97.7 F Pulse Rate 51 Respiratory 16 20 16 Rate Blood Pressure (mmHg) O2 Sat by Pulse 96 Oximetry 07/13/18 07/13/18 07/13/18 10:26 11:11 12:05 Temperature Pulse Rate 55 Respiratory 20 18 Rate Blood Pressure 139/72 (mmHg) O2 Sat by Pulse Oximetry Oxygen Devices in Use Now: None Eyes: No Scleral Icterus, PERRLA Ears/Nose/Mouth/Throat: NL Teeth, Lips, Gums, Clear Oropharnyx Neck: NL Appearance and Movements; NL JVP, Trachea Midline Respiratory: Symmetrical Chest Expansion and Respiratory Effort, Clear to Auscultation Cardiovascular: NL Sounds; No Murmurs; No JVD, RRR Abdominal: NL Sounds; No Tenderness; No Distention Extremities: No Edema, - - decrease flexion and abduction of his fingers Skin: - - + cyanosis with blanching over his right thumb and extending from mitchell base of his thumb to his nail bed Neurological: Alert and Oriented x 3 Result Diagrams: 07/12/18 05:46 07/13/18 05:30 Additional Lab and Data: . Microbiology and Other Data: Microbiology 07/08/18 21:12 Aerobic Blood Culture - Preliminary Blood Venous Blood MRSA/MSSA (PCR) - Final Mrsa Negative S.aureus Negative Diagnostic Imaging: Patient Name: JEREMI HACKETT Medical Record#: [id number] Ordering Physician: Raji Block MD Acct.#: [id number] : 1990 Age: 27 Sex: M Location: EMERGENCY DEPARTMENT Exam Date: 07/08/18 1651 ADM Status: REG ER Order Information: HAND - RIGHT MINIMUM 3 VIEWS IMPRESSION: Normal right hand radiograph. If the patient's symptoms persist, follow-up imaging is recommended. <Electronically signed by Sai Nicole MD in OV> 07/08/18 1726 Patient Name: JEREMI HACKETT Medical Record#: [id number] Ordering Physician: Raji Block MD Acct.#: [id number] : 1990 Age: 27 Sex: M Location: EMERGENCY DEPARTMENT Exam Date: 07/08/18 1908 ADM Status: REG ER Order Information: CT EXTREMITY UPPER RIGHT W/O Accession Number: [id number] CPT: 16718 EXAM: CT Right Upper Extremity Without Intravenous Contrast, Hand IMPRESSION: 1. Moderate edematous changes in the subcutaneous tissues and surrounding the extensor tendons most pronounced dorsally which may be passive edema and/or cellulitis. No abscess is localized on nonenhanced study. No soft tissue gas. If there is suspicion of infected tenosynovitis consider MRI with contrast. 2. Hand is in flexed position. No fracture or dislocation. <Electronically signed by Augustus Turner MD in OV> 07/08/182057 EKG Data: . Assess/Plan/Problems-Billing Assessment: A 27 y/o male with hx IV drug abuse and MRSA, who sustained a crushing injury to right hand/thumb 5 days ago, presented to ED with increased right hand swelling and pain, admitted for treatment of possible cellulitis with IV antibiotics, orthopedic following for possible I&D if indicated. - Patient Problems (1) Cellulitis of hand, right Current Visit: Yes Status: Acute Code(s): L03.113 - CELLULITIS OF RIGHT UPPER LIMB SNOMED Code(s): 18196311 Comment: -D/W Dr. Miller regarding antibiotic course, route and durations. awating final recommenations -Blood culture reveals S. epidermidis (unclear if contaminant or cause of infection). I will Continue IV Vanco and cefepime, and given his IVDA it is crucial to treat as true infection rather than contaminations. - I discussed with the patient the importance to wean him off narcotics before discharge and will transition to Ibuprofen, gabapentin, lower dose. - Given his skin discolorations, I will place him on aspirin 325 mg daily , warm compression for blood flow support (2) History of intravenous drug abuse Current Visit: Yes Status: Acute Code(s): Z87.898 - PERSONAL HISTORY OF OTHER SPECIFIED CONDITIONS SNOMED Code(s): 76255319301796877 Comment: - Per patient, has been in rehab in the past - No use for past 5 years (3) Anxiety and depression Current Visit: No Status: Chronic Code(s): F41.8 - OTHER SPECIFIED ANXIETY DISORDERS SNOMED Code(s): 45844805 Comment: will call for psychiatry for evaluations. He does not want his previous medications of citalopram and lexapro. Left message for psychiatry for recommendations Status and Disposition: -Possible D/C in 1-2 days
[2018-07-13] MEDS: Aspirin EC TAB* 325 MG PO SCH (15:06)
[2018-07-14] MEDS: Cefepime 2 GM in Dextrose(*) 2 GM/50 ML BAG IV SCH ×2 (02:57→15:31)
[2018-07-14] MEDS: HYDROmorphone TAB* 2 MG PO PRN ×4 (03:03→15:30)
[2018-07-14] MEDS: Vancomycin(*) 1,000 MG in NS 0.9% 250 ML* 250 ML IVPB SCH ×2 (06:58→13:25)
[2018-07-14] MEDS: Omeprazole CAP* 20 MG PO SCH (07:21)
[2018-07-14] MEDS: Gabapentin CAP(*) 100 MG PO SCH ×2 (08:21→21:14)
[2018-07-14] MEDS: Aspirin EC TAB* 325 MG PO SCH (08:22)
--- NOTE | 2018-07-14 09:34 | PN ---
Progress Note - Progress Note Date of Service: 07/14/18 SOAP: Subjective: []Patient was seen and examined at bedside today. He feels well and denies fever , chills. His right hand and thumb are not painful at rest or with daily use. Objective: []General: NAD, non-toxic appearing, carries on appropriate conversation RUE: right thumb with minimal swelling. Spotty discoloration continues to fade and recede. Sensation is intact to light touch throughout hand and all digits. He is entirely nontender to palpation throughout the right wrist, hand and digits. He does confirm pressure sensation with deep palpation of the thenar eminence, though no pain. Full nonpainful active and passive ROM of IP, MCP, CMC joints. Nonpainful wrist and elbow ROM. Forearm is compressible and nontender. Assessment: []Right thumb infection vs crush injury Plan: [] ROM as tolerated, encourage ROM exercises Abx per medicine and ID Exam is stable and patient is overall demonstrating improvement of his right thumb. Ortho will continue to follow his exam while in house and I anticipate he will be able to D/C home when medically ready. He should follow up in our orthopedic office with Dr. Henderson next week, sooner with any return, worsening or new symptoms. If condition does again worsen, an I&D would be considered Vital Signs Temp 97.7 F 07/14/18 07:24 Pulse 52 07/14/18 07:24 Resp 18 07/14/18 08:00 BP 142/98 07/14/18 08:06 Pulse Ox 100 07/14/18 07:24 Intake & Output 07/13/18 07/14/18 07/14/18 18:59 06:59 18:59 Intake Total 2120 755 320 Output Total 1000 Balance 2120 755 -680 Intake: IV Fluids 360 30 cefepime 50 ns 60 30 vancomycin 250 IVPB 325 cefepime 50 vancomycin 275 Oral 1760 400 320 Output: Urine 1000 Other: # Bowel Movements 0 # Voids 1 Laboratory Last Values WBC 4.2 10^3/ul (3.5-10.8) 07/12/18 05:46 RBC 3.54 10^6/ul (4.00-5.40) L 07/12/18 05:46 Hgb 10.3 g/dl (14.0-18.0) L 07/12/18 05:46 Hct 30 % (42-52) L 07/12/18 05:46 MCV 85 fL (80-94) 07/12/18 05:46 MCH 29 pg (27-31) 07/12/18 05:46 MCHC 34 g/dl (31-36) 07/12/18 05:46 RDW 14 % (10.5-15) 07/12/18 05:46 Plt Count 101 10^3/ul (150-450) L 07/12/18 05:46 MPV 9.9 um3 (7.4-10.4) 07/12/18 05:46 Neut % (Auto) 60.7 % (38-83) 07/12/18 05:46 Lymph % (Auto) 27.5 % (25-47) 07/12/18 05:46 [place] % (Auto) 9.3 % (0-7) H 07/12/18 05:46 Eos % (Auto) 1.9 % (0-6) 07/12/18 05:46 Baso % (Auto) 0.6 % (0-2) 07/12/18 05:46 Absolute Neuts (auto) 2.6 10^3/ul (1.5-7.7) 07/12/18 05:46 Absolute Lymphs (auto) 1.2 10^3/ul (1.0-4.8) 07/12/18 05:46 Absolute Monos (auto) 0.4 10^3/ul (0-0.8) 07/12/18 05:46 Absolute Eos (auto) 0.1 10^3/ul (0-0.6) 07/12/18 05:46 Absolute Basos (auto) 0 10^3/ul (0-0.2) 07/12/18 05:46 Absolute Nucleated RBC 0 10^3/ul 07/12/18 05:46 Nucleated RBC % 0.1 07/12/18 05:46 ESR 23 mm/Hr (0-14) H 07/10/18 12:54 INR (Anticoag Therapy) 1.06 (0.77-1.02) H 07/09/18 14:15 Sodium 141 mmol/L (135-145) 07/12/18 05:46 Potassium 3.7 mmol/L (3.5-5.0) 07/12/18 05:46 Chloride 110 mmol/L (101-111) 07/12/18 05:46 Carbon Dioxide 27 mmol/L (22-32) 07/12/18 05:46 Anion Gap 4 mmol/L (2-11) 07/12/18 05:46 BUN 12 mg/dL (6-24) 07/13/18 05:30 Creatinine 0.78 mg/dL (0.67-1.17) 07/13/18 05:30 Est GFR ( Amer) 146.7 (>60) 07/13/18 05:30 Est GFR (Non-Af Amer) 121.3 (>60) 07/13/18 05:30 BUN/Creatinine Ratio 16.7 (8-20) 07/12/18 05:46 Glucose 88 mg/dL (70-100) 07/12/18 05:46 Lactic Acid 0.7 mmol/L (0.5-2.0) 07/08/18 21:12 Calcium 8.1 mg/dL (8.6-10.3) L 07/12/18 05:46 Phosphorus 3.4 mg/dL (2.5-5.0) 07/11/18 05:20 Magnesium 2.0 mg/dL (1.9-2.7) 07/11/18 05:20 Iron 52 ug/dL (50-212) 07/12/18 05:46 TIBC 245 mcg/dL (250-450) L 07/12/18 05:46 % Saturation 21 % (15-55) 07/12/18 05:46 Unsat Iron Binding 193 ug/dL 07/12/18 05:46 Transferrin 175 mg/dL (203-362) L 07/12/18 05:46 Ferritin 45.2 ng/mL (24-336) 07/12/18 05:46 Total Bilirubin 0.30 mg/dL (0.2-1.0) 07/11/18 05:20 AST 15 U/L (13-39) 07/11/18 05:20 ALT 18 U/L (7-52) 07/11/18 05:20 Alkaline Phosphatase 53 U/L (34-104) 07/11/18 05:20 Total Creatine Kinase 51 U/L (10-223) 07/12/18 05:46 C-Reactive Protein 19.65 mg/L (<8.01) H 07/10/18 12:54 Total Protein 5.6 g/dL (6.4-8.9) L 07/11/18 05:20 Albumin 3.3 g/dL (3.2-5.2) 07/11/18 05:20 Globulin 2.3 g/dL (2-4) 07/11/18 05:20 Albumin/Globulin Ratio 1.4 (1-3) 07/11/18 05:20 Vitamin B12 315 pg/mL (180-914) 07/12/18 05:46 Folate 9.83 ng/mL (>3.99) 07/12/18 05:46 Urine Color Yellow 07/10/18 18:45 Urine Appearance Clear 07/10/18 18:45 Urine pH 6.0 (5-9) 07/10/18 18:45 Ur Specific Ideal 1.016 (1.010-1.030) 07/10/18 18:45 Urine Protein Negative (Negative) 07/10/18 18:45 Urine Ketones Negative (Negative) 07/10/18 18:45 Urine Blood Negative (Negative) 07/10/18 18:45 Urine Nitrate Negative (Negative) 07/10/18 18:45 Urine Bilirubin Negative (Negative) 07/10/18 18:45 Urine Urobilinogen Negative (Negative) 07/10/18 18:45 Ur Leukocyte Esterase Trace (Negative) A 07/10/18 18:45 Urine WBC (Auto) Trace(0-5/hpf) (Absent) 07/10/18 18:45 Urine RBC (Auto) Absent (Absent) 07/10/18 18:45 Urine Bacteria Absent (Absent) 07/10/18 18:45 Urine Glucose Negative (Negative) 07/10/18 18:45 Vancomycin Trough 10.6 mcg/mL 07/13/18 05:30 Urine Opiates Screen Presumptive positive (None Detect) A 07/10/18 18:45 Ur Barbiturates Screen None detected (None Detect) 07/10/18 18:45 Ur Phencyclidine Scrn None detected (None Detect) 07/10/18 18:45 Ur Amphetamines Screen None detected (None Detect) 07/10/18 18:45 U Benzodiazepines Scrn None detected (None Detect) 07/10/18 18:45 Urine Cocaine Screen None detected (None Detect) 07/10/18 18:45 U Cannabinoids Screen Presumptive positive (None Detect) A 07/10/18 18:45
[2018-07-14] MEDS: Enoxaparin(*) 40 MG/0.4 ML SYR SUBCUT SCH (13:25)
[2018-07-14] MEDS ORDERED: Propranolol TAB* 10 MG PO PRN (14:09)
[2018-07-14] MEDS ORDERED: HYDROmorphone TAB* 2 MG PO PRN (15:30)
--- NOTE | 2018-07-14 15:38 | PN ---
Subjective Date of Service: 07/14/18 Interval History: Patient seen today, doing well. his hand is much improved. he is able to shake his hands and move his fingers without any restrictions. his colors improved. He did use the warm compression and aspirin. I did explain to him the taper of Dilaudid and he is in agreement if he does not use any Dilaudid for 12 + hours at least than we may be able to discharge him tomorrow. Family History: Unchanged from Admission Social History: Unchanged from Admission Past Medical History: Unchanged from Admission Objective Active Medications: Aspirin (Ecotrin Ec Tab*) 325 mg PO DAILY [facility] Last Admin: 07/14/18 08:22 Dose: 325 mg Enoxaparin Sodium (Lovenox(*)) 40 mg SUBCUT Q24H [facility] Last Admin: 07/14/18 13:25 Dose: 40 mg Gabapentin (Neurontin Cap(*)) 100 mg PO BID [facility] Last Admin: 07/14/18 08:21 Dose: Not Given Heparin Sodium (Porcine) (Heparin Flush Picc/Ml/Cvc(*)) 1 ml FLUSH 0600,1800 [facility]; Protocol Last Admin: 07/14/18 06:48 Dose: Not Given Hydromorphone HCl (Dilaudid Tab*) 1 mg PO Q6H PRN PRN Reason: PAIN Cefepime HCl (Maxipime 2 Gm In Dextrose Duplex (*)) 2 gm in 50 mls @ 100 mls/ hr IV Q12HR@0300,1500 [facility] Last Admin: 07/14/18 02:57 Dose: 100 mls/hr Vancomycin HCl 1,000 mg/ (Sodium Chloride) 250 mls @ 166.667 mls/hr IVPB Q8H [facility] Last Admin: 07/14/18 13:25 Dose: 166.667 mls/hr Omeprazole (Prilosec Cap*) 20 mg PO DAILY@0730 [facility] Last Admin: 07/14/18 07:21 Dose: Not Given Ondansetron HCl (Zofran Inj*) 4 mg IV Q6H PRN PRN Reason: NAUSEA Pharmacy Consult (Vancomycin Per Pharmacy*) 1 note FOLLOW UP .VANC PER PHARMACY [facility] Pharmacy Profile Note (Vancomycin Trough Check) 1 note FOLLOW UP ONCE ONE Stop: 07/16/18 05:31 Propranolol HCl (Inderal Tab*) 10 mg PO BID PRN PRN Reason: anxiety Quetiapine Fumarate (Seroquel Tab*) 100 mg PO BEDTIME LUZ Vital Signs - 8 hr 07/14/18 07/14/18 07/14/18 08:00 08:06 09:55 Temperature Pulse Rate Respiratory 18 18 Rate Blood Pressure 142/98 (mmHg) O2 Sat by Pulse Oximetry 07/14/18 07/14/18 07/14/18 11:30 11:31 13:44 Temperature 98.5 F 98.5 F Pulse Rate 56 50 Respiratory 18 18 Rate Blood Pressure 150/74 150/74 (mmHg) O2 Sat by Pulse 99 100 Oximetry 07/14/18 07/14/18 14:00 15:30 Temperature 98.5 F Pulse Rate 68 Respiratory 16 18 Rate Blood Pressure 136/70 (mmHg) O2 Sat by Pulse 98 Oximetry Oxygen Devices in Use Now: None Eyes: No Scleral Icterus, PERRLA Neck: NL Appearance and Movements; NL JVP, Trachea Midline Respiratory: Symmetrical Chest Expansion and Respiratory Effort Cardiovascular: NL Sounds; No Murmurs; No JVD Extremities: No Edema Skin: - - improved Left upper hand colorations. improved ROM. decrease tenderenss Result Diagrams: 07/12/18 05:46 07/13/18 05:30 Additional Lab and Data: . Microbiology and Other Data: Microbiology 07/08/18 21:12 Aerobic Blood Culture - Preliminary Blood Venous Blood MRSA/MSSA (PCR) - Final Mrsa Negative S.aureus Negative Diagnostic Imaging: Patient Name: JEREMI HACKETT [place] Medical Record#: [id number] Ordering Physician: Raji Block MD Acct.#: [id number] : 1990 Age: 27 Sex: M Location: EMERGENCY DEPARTMENT Exam Date: 07/08/181650 ADM Status: REG ER Order Information: HAND - RIGHT MINIMUM 3 VIEWS IMPRESSION: Normal right hand radiograph. If the patient's symptoms persist, follow-up imaging is recommended. <Electronically signed by Sai Nicole MD in OV> 07/08/18 2708 Patient Name: JEREMI HACKETT [place] Medical Record#: [id number] Ordering Physician: Raji Block MD Acct.#: [id number] : 1990 Age: 27 Sex: M Location: EMERGENCY DEPARTMENT Exam Date: 07/08/181907 ADM Status: REG ER Order Information: CT EXTREMITY UPPER RIGHT W/O Accession Number: [id number] CPT: 96431 EXAM: CT Right Upper Extremity Without Intravenous Contrast, Hand IMPRESSION: 1. Moderate edematous changes in the subcutaneous tissues and surrounding the extensor tendons most pronounced dorsally which may be passive edema and/or cellulitis. No abscess is localized on nonenhanced study. No soft tissue gas. If there is suspicion of infected tenosynovitis consider MRI with contrast. 2. Hand is in flexed position. No fracture or dislocation. <Electronically signed by Augustus Turner MD in OV> 07/08/182057 EKG Data: . Assess/Plan/Problems-Billing Assessment: A 27 y/o male with hx IV drug abuse and MRSA, who sustained a crushing injury to right hand/thumb 5 days ago, presented to ED with increased right hand swelling and pain, admitted for treatment of possible cellulitis with IV antibiotics, orthopedic following for possible I&D if indicated. - Patient Problems (1) Cellulitis of hand, right Current Visit: Yes Status: Acute Code(s): L03.113 - CELLULITIS OF RIGHT UPPER LIMB SNOMED Code(s): 78506027 Comment: -D/W Dr. Miller regarding antibiotic course, route and durations. and recommended bactrim DS bid for one week. will start today and potential discharge in am with outpatient follow up with orthopedic -Blood culture reveals S. epidermidis (unclear if contaminant or cause of infection). I will d/c IV Vanco and cefepime, and will continue with bactrim DS bid. - I discussed with the patient the importance to wean him off narcotics before discharge and will transition to Ibuprofen, gabapentin, lower dose. - continue aspirin 325 mg daily , warm compression for blood flow support (2) History of intravenous drug abuse Current Visit: Yes Status: Acute Code(s): Z87.898 - PERSONAL HISTORY OF OTHER SPECIFIED CONDITIONS SNOMED Code(s): 95393205415297275 Comment: - Per patient, has been in rehab in the past - No use for past 5 years - Will wean off dilaudid before discharge. (3) Anxiety and depression Current Visit: No Status: Chronic Code(s): F41.8 - OTHER SPECIFIED ANXIETY DISORDERS SNOMED Code(s): 96001398 Comment: - psychiatry for evaluations appreicated. Placed on seroquel and propranolol. He does not want his previous medications of citalopram and lexapro. Status and Disposition: -Possible D/C in am
--- NOTE | 2018-07-14 16:43 | CONS ---
PSYCHIATRY CONSULTATION DATE OF CONSULTATION: 07/14/2018. DATE OF ADMISSION: 07/08/2018. ATTENDING PHYSICIAN: Dr. Liban Farris. CONSULTING PHYSICIAN: Dr. Armand Estrada. REASON FOR CONSULTATION: Anxiety. SUBJECTIVE HISTORY: Psychiatry is asked to see this 27-year-old, single, white male with a history of intravenous drug abuse and various associated infectious sequelae. Due to endorsement of significant anxiety on our unit, the patient was requesting Alprazolam, which he states he has received successfully in the outpatient environment; however, the primary team is concerned about his history of drug abuse and is understandably reluctant to administer controlled anxiolytics. When I meet with the patient, he is calm and cooperative, sitting Slov[place] style in his bed. I note that he has an apparent infectious process in his right hand which appears erythematous and swollen. He tells me a story about moving a piece of furniture in his mother's home and injuring the hand in that way, although I understand that there is some concern that this wound is perhaps related to IV drug use. The patient denies this, stating that he has been sober from intravenous drugs for over six months. He does endorse a history of chronic baseline anxiety which is occasionally punctuated by panic attacks. He admits that this particular environment within the hospital is very confining and very anxiety provoking. He indicates that the most recent prescriber in the community was family nurse practitioner, Irma Weinberg. Prior to meeting with him, I was able to call Ms. Weinberg's office and they confirmed that they discontinued providing services for him in October of 2017 due to several missed appointments. The patient tells me that he tried to get re- hooked up with primary care in the office of Dr. Sahil Coker, but was sent to the hospital when they evaluated his hand prior to presentation. The patient has tried numerous noncontrolled medications such as Escitalopram, Duloxetine, Quetiapine, Clonidine, Hydroxyzine, and Fluoxetine for his anxiety problems with limited benefit. He states the most helpful substance was Quetiapine given the fact that he could sleep well with this and it did not give him side effects. He steadfastly denies depression, history of violence, or suicidal ideations. 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 PAST PSYCHIATRIC HISTORY: The patient states that he has been treated by various primary care providers in the community, most notably Irma Weinberg NP for his anxiety problems. He denies any history of psychiatric hospitalization, counseling, or psychotherapy. He states that Gabapentin made him feel more anxious, Clonidine was sedating, Escitalopram gave him sleep paralysis, as did Fluoxetine, and the Clonazepam and Alprazolam worked the best. He denies any history of abuse or neglect. He similarly denies any history of head trauma. SUBSTANCE ABUSE HISTORY: The patient indicates that he started using marijuana in high school and tried cocaine and amphetamines, but did not like them. He states that he was never fond of alcohol, but does smoke one-half pack of cigarettes per day. At some point, he got interested in opioid pain relievers and then progressed to IV opioids. He has had three inpatient rehabilitations stints, all in the [facility]; the first being at a facility called [place] [facility], the second at at facility called [facility], and the third being call [facility]. He does indicate that he briefly went to [facility], but could not afford this and stopped going. He intermittently participates in AA and NA in the community. He has never been on medication assisted treatment for addictions. PAST MEDICAL HISTORY: Significant for spinal stenosis, scoliosis, history of MRSA, and he had a surgical incision and drainage from a hypodermic needle that had broken off in his arm several years ago. ALLERGIES: TYLENOL, PENICILLIN, TRAMADOL. FAMILY HISTORY: Noncontributory for mental illness. SOCIAL HISTORY: The patient was born and raised in [place] and dropped out of [place] [employer], but was able to get a GED. He has no history of college courses. 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 The patient is single and not currently sexually active. He has not had a girlfriend in the past five years. He self-identifies as heterosexual. He is neither religion nor spiritual. He does have a history of being arrested five years ago at the [employer] in [place] in which he was discovered with hallucinogenic mushrooms and hypodermic needles. [facility] lieu of [facility], however, he went to rehab and avoided imprisonment or drug court for that reason. MENTAL STATUS EXAM: The patient is a young, white male who appears somewhat tired and arelis, older than his stated age. He is wearing a green T-shirt. I noticed that he has dyed blonde hair. He is calm, cooperative, makes good eye contact. His speech has a normal rate, tone, and volume. Mood appears to be anxious with a full affect. Thought process is linear and goal-directed. Thought content is significant for his desire to get back on an anxiolytic and be discharged from the hospital. He denies suicidal or homicidal ideations. He denies auditory or visual hallucinations. Insight and judgment appears to be somewhat limited given his declination of outpatient mental health services. Cognitively, he is awake and alert with what would appear to be an average intellect. DIAGNOSES: AXIS I: Opioid use disorder; unspecified anxiety disorder. AXIS II: Deferred. IMPRESSION: The patient is a 27-year-old, single, white male with a history of IV drug abuse who arrives with a somewhat spurious claim of having had an accident with his right hand. It is more likely that this issue is related to IV substance abuse. He is presenting with anxiety and I agree with the primary team's concerns about using controlled substances. After some negotiation, the patient does agree to a trial of Quetiapine 100 mg p.o. at bedtime. He also agrees to use Propranolol 10 mg on a prn basis for breakthrough anxiety. I have offered the patient follow- up mental health treatment at the [facility]; however, he is declining this, stating that he wants to follow-up simply with a primary care provider. RECOMMENDATIONS TO PRIMARY TEAM: We will go ahead and start a trial of Quetiapine 100 mg nightly as well as some prn Propranolol for breakthrough anxiety. Psychiatry will continue to follow the patient until his time of discharge. Given his refusal for outpatient mental health services, I still recommend outpatient substance abuse support, as well as primary care in the community. Thank you for the consult. [id number]/[facility] #: [id number] ZAC
[2018-07-14] MEDS ORDERED: QUEtiapine TAB* 100 MG PO SCH (21:00)
[2018-07-14] MEDS: Sulfamethox/Trimethoprim DS 800/160* TAB PO SCH (21:14)
[2018-07-15] MEDS: Aspirin EC TAB* 325 MG PO SCH (08:19)
[2018-07-15] MEDS: Sulfamethox/Trimethoprim DS 800/160* TAB PO SCH (08:19)
[2018-07-15] MEDS: Omeprazole CAP* 20 MG PO SCH (08:20)
[2018-07-15] MEDS: Gabapentin CAP(*) 100 MG PO SCH (08:20)
[2018-07-15 09:49] VITALS: BP 131/69
--- NOTE | 2018-07-15 13:22 | PN ---
Progress Note - Progress Note Date of Service: 07/15/18 SOAP: Subjective: []Patient seen and examined at bedside. He denies any pain of his right hand, fever or chills. Objective: []General: NAD, non-toxic appearing, carries on appropriate conversation RUE: right thumb with minimal swelling. Spotty discoloration continues to fade and recede. Sensation is intact to light touch throughout hand and all digits. He is entirely nontender to palpation throughout the right wrist, hand and digits. Full nonpainful active and passive ROM of IP, MCP, CMC joints. Assessment: []Right thumb infection vs crush injury Plan: [] ROM as tolerated, encourage ROM exercises Abx per medicine and ID Exam continues to improve. Can follow up in [address] Henderson, sooner with concerns Vital Signs Temp 98.2 F 07/15/18 07:34 Pulse 53 07/15/18 07:34 Resp 18 07/15/18 08:00 BP 131/69 07/15/18 07:34 Pulse Ox 98 07/15/18 07:34 Intake & Output 07/14/18 07/15/18 07/15/18 18:59 06:59 18:59 Intake Total 1960 400 Output Total 1000 Balance 960 400 Intake: IV Fluids 60 ns 60 IVPB 550 cefepime 50 vancomycin 500 Oral 1350 400 Output: Urine 1000 Other: Estimated Void Medium Medium # Bowel Movements 1 2 Estimated Stool Amount Medium # Voids 3 1 Laboratory Last Values WBC 4.2 10^3/ul (3.5-10.8) 07/12/18 05:46 RBC 3.54 10^6/ul (4.00-5.40) L 07/12/18 05:46 Hgb 10.3 g/dl (14.0-18.0) L 07/12/18 05:46 Hct 30 % (42-52) L 07/12/18 05:46 MCV 85 fL (80-94) 07/12/18 05:46 MCH 29 pg (27-31) 07/12/18 05:46 MCHC 34 g/dl (31-36) 07/12/18 05:46 RDW 14 % (10.5-15) 07/12/18 05:46 Plt Count 101 10^3/ul (150-450) L 07/12/18 05:46 MPV 9.9 um3 (7.4-10.4) 07/12/18 05:46 Neut % (Auto) 60.7 % (38-83) 07/12/18 05:46 Lymph % (Auto) 27.5 % (25-47) 07/12/18 05:46 [place] % (Auto) 9.3 % (0-7) H 07/12/18 05:46 Eos % (Auto) 1.9 % (0-6) 07/12/18 05:46 Baso % (Auto) 0.6 % (0-2) 07/12/18 05:46 Absolute Neuts (auto) 2.6 10^3/ul (1.5-7.7) 07/12/18 05:46 Absolute Lymphs (auto) 1.2 10^3/ul (1.0-4.8) 07/12/18 05:46 Absolute Monos (auto) 0.4 10^3/ul (0-0.8) 07/12/18 05:46 Absolute Eos (auto) 0.1 10^3/ul (0-0.6) 07/12/18 05:46 Absolute Basos (auto) 0 10^3/ul (0-0.2) 07/12/18 05:46 Absolute Nucleated RBC 0 10^3/ul 07/12/18 05:46 Nucleated RBC % 0.1 07/12/18 05:46 ESR 23 mm/Hr (0-14) H 07/10/18 12:54 INR (Anticoag Therapy) 1.06 (0.77-1.02) H 07/09/18 14:15 Sodium 141 mmol/L (135-145) 07/12/18 05:46 Potassium 3.7 mmol/L (3.5-5.0) 07/12/18 05:46 Chloride 110 mmol/L (101-111) 07/12/18 05:46 Carbon Dioxide 27 mmol/L (22-32) 07/12/18 05:46 Anion Gap 4 mmol/L (2-11) 07/12/18 05:46 BUN 12 mg/dL (6-24) 07/13/18 05:30 Creatinine 0.78 mg/dL (0.67-1.17) 07/13/18 05:30 Est GFR ( Amer) 146.7 (>60) 07/13/18 05:30 Est GFR (Non-Af Amer) 121.3 (>60) 07/13/18 05:30 BUN/Creatinine Ratio 16.7 (8-20) 07/12/18 05:46 Glucose 88 mg/dL (70-100) 07/12/18 05:46 Lactic Acid 0.7 mmol/L (0.5-2.0) 07/08/18 21:12 Calcium 8.1 mg/dL (8.6-10.3) L 07/12/18 05:46 Phosphorus 3.4 mg/dL (2.5-5.0) 07/11/18 05:20 Magnesium 2.0 mg/dL (1.9-2.7) 07/11/18 05:20 Iron 52 ug/dL (50-212) 07/12/18 05:46 TIBC 245 mcg/dL (250-450) L 07/12/18 05:46 % Saturation 21 % (15-55) 07/12/18 05:46 Unsat Iron Binding 193 ug/dL 07/12/18 05:46 Transferrin 175 mg/dL (203-362) L 07/12/18 05:46 Ferritin 45.2 ng/mL (24-336) 07/12/18 05:46 Total Bilirubin 0.30 mg/dL (0.2-1.0) 07/11/18 05:20 AST 15 U/L (13-39) 07/11/18 05:20 ALT 18 U/L (7-52) 07/11/18 05:20 Alkaline Phosphatase 53 U/L (34-104) 07/11/18 05:20 Total Creatine Kinase 51 U/L (10-223) 07/12/18 05:46 C-Reactive Protein 19.65 mg/L (<8.01) H 07/10/18 12:54 Total Protein 5.6 g/dL (6.4-8.9) L 07/11/18 05:20 Albumin 3.3 g/dL (3.2-5.2) 07/11/18 05:20 Globulin 2.3 g/dL (2-4) 07/11/18 05:20 Albumin/Globulin Ratio 1.4 (1-3) 07/11/18 05:20 Vitamin B12 315 pg/mL (180-914) 07/12/18 05:46 Folate 9.83 ng/mL (>3.99) 07/12/18 05:46 Urine Color Yellow 07/10/18 18:45 Urine Appearance Clear 07/10/18 18:45 Urine pH 6.0 (5-9) 07/10/18 18:45 Ur Specific Mobile 1.016 (1.010-1.030) 07/10/18 18:45 Urine Protein Negative (Negative) 07/10/18 18:45 Urine Ketones Negative (Negative) 07/10/18 18:45 Urine Blood Negative (Negative) 07/10/18 18:45 Urine Nitrate Negative (Negative) 07/10/18 18:45 Urine Bilirubin Negative (Negative) 07/10/18 18:45 Urine Urobilinogen Negative (Negative) 07/10/18 18:45 Ur Leukocyte Esterase Trace (Negative) A 07/10/18 18:45 Urine WBC (Auto) Trace(0-5/hpf) (Absent) 07/10/18 18:45 Urine RBC (Auto) Absent (Absent) 07/10/18 18:45 Urine Bacteria Absent (Absent) 07/10/18 18:45 Urine Glucose Negative (Negative) 07/10/18 18:45 Vancomycin Trough 10.6 mcg/mL 07/13/18 05:30 Urine Opiates Screen Presumptive positive (None Detect) A 07/10/18 18:45 Ur Barbiturates Screen None detected (None Detect) 07/10/18 18:45 Ur Phencyclidine Scrn None detected (None Detect) 07/10/18 18:45 Ur Amphetamines Screen None detected (None Detect) 07/10/18 18:45 U Benzodiazepines Scrn None detected (None Detect) 07/10/18 18:45 Urine Cocaine Screen None detected (None Detect) 07/10/18 18:45 U Cannabinoids Screen Presumptive positive (None Detect) A 07/10/18 18:45
[2018-07-16] MEDS ORDERED: Vancomycin Trough Check NOTE FOLLOW UP ONE (05:30)
--- NOTE | 2018-07-16 07:10 | DS ---
DISCHARGE SUMMARY: DATE OF ADMISSION: 07/08/18 DATE OF DISCHARGE: 07/15/18 FINAL DISCHARGE DIAGNOSES: 1. Right hand cellulitis. 2. Anxiety. 3. History of prior substance abuse. 4. Anemia. HOSPITAL COURSE: The patient presented to [facility] on 07/08/18, with severe right hand and wrist pain, swelling, and redness with prior history of IV drug use. He does give history of injury to the right hand while moving furniture with his brother. During the hospital stay, the patient underwent consultation with Infectious Disease and Orthopedics. He underwent upper extremity MRI on 07/09/18, which revealed small area of nonenhancing fluid in the opponens pollicis suggesting abscess/necrosis, largest collection about 3 x 3 mm with diffuse edema changes. Orthopedics evaluated the patient and recommended medical therapy. The patient was treated with IV vancomycin and cefepime and over the course of past few days, with implementation of aspirin, warm compress, IV antibiotics, anti- inflammatory, his inflammation and pain subsided and started to get better and the patient was consulted against the use of Dilaudid, which he was using it around the clock, 4 mg q.4 hours. He was tapered off Dilaudid and transitioned to oral Bactrim and this morning, the patient stated he has not used Dilaudid over 18 hours and he continue to improve with his Bactrim. Hence, he is deemed stable for discharge. He will follow up with Orthopedics as well as the primary care. INPATIENT DIAGNOSTIC STUDY: The patient had x-ray on 07/08/18, shows normal right hand. CT upper extremity shows moderate edema in the subcutaneous tissue. No evidence of abscess on CT. MRI of the right upper extremity revealed a questionable small abscess 3 x 3 mm in the right hand with diffuse edema. Ultrasound, soft tissue of his left popliteal area did not reveal any abscess. Microbiology, he had MRSA negative. One blood culture show Staphylococcus epidermidis. LABORATORY DATA: White count was normal throughout the hospital stay with a peak of 7.2. Hematocrit, he dropped from 38 down to 30. No active bleed. Chemistry had elevated CRP, 27 on admission down to 19 on July 10. PSR peak at 24. Drug screen positive for cannabinoids. PHYSICAL EXAMINATION: Temperature 98, pulse 98, respiratory rate 17, 99%, pressure 122/55. Generally, he is awake, alert, oriented, in no apparent distress, feeling better. Head and Neck: Normocephalic, atraumatic. Supple. No JVD. Cardiovascular: S1, S2. Regular rate and rhythm. Lungs: Clear to auscultation bilaterally. Extremities: He has full range of motion of his wrist. No limited flexion or abduction. Improved erythema with diminished discoloration. Good cap refill. DISCHARGE MEDICATIONS: He was discharged on: 1. Aspirin 325 mg daily. 2. Propranolol 10 mg b.i.d. for anxiety. 3. Seroquel 100 mg daily for anxiety. 4. Bactrim one tab b.i.d. for 1 more week.` 5. Naproxen p.r.n. for pain. 6. Aspirin 325 mg daily for his vascular circulation. DISCHARGE INSTRUCTIONS: The patient is to follow up with the primary care being setup with [facility]. Follow up with Dr. Chandler Henderson, appointment made for 07/22/18. Adhere to warm compress to the right upper extremity. No strenuous activity with his right hand. If he develops any recurrence of symptoms, fever, or pain , return to the emergency room immediately. [id number] #: [id number] MTDD
== END 2018-07-15 13:10 | disposition home or self-care (01) | DRG 383 ==
LOC: ED 15:59 → MED 21:27
PROVIDERS: ADMIT Hospitalist; ATTEND Internal Medicine
DX: L03.113 Cellulitis of right upper limb (principal); S67.01XA Crushing injury of right thumb, initial encounter; X58.XXXA Exposure to other specified factors, initial encounter; D64.9 Anemia, unspecified; I50.9 Heart failure, unspecified; M10.9 Gout, unspecified; M48.00 Spinal stenosis, site unspecified; M41.9 Scoliosis, unspecified; G43.909 Migraine, unspecified, not intractable, without status migrainosus; F41.9 Anxiety disorder, unspecified; F32.9 Major depressive disorder, single episode, unspecified; F17.210 Nicotine dependence, cigarettes, uncomplicated; F11.90 Opioid use, unspecified, uncomplicated; S31.109A Unspecified open wound of abdominal wall, unspecified quadrant without penetration into peritoneal cavity, initial encounter; S81.802A Unspecified open wound, left lower leg, initial encounter; S67.21XA Crushing injury of right hand, initial encounter; Z87.442 Personal history of urinary calculi; Z79.82 Long term (current) use of aspirin; Z83.3 Family history of diabetes mellitus; Z82.49 Family history of ischemic heart disease and other diseases of the circulatory system; Y92.9 Unspecified place or not applicable; Z86.14 Personal history of Methicillin resistant Staphylococcus aureus infection; Z88.0 Allergy status to penicillin; Z88.8 Allergy status to other drugs, medicaments and biological substances; Z88.6 Allergy status to analgesic agent
CPT/HCPCS: 36415; 80048; 80053; 80202; 80307; 81003; 81015; 82550; 82565; 82607; 82728; 82746; 83540; 83550; 83605; 83735; 84100; 84520; 85025; 85610; 85652; 86140; 87040; 87077; 87086; 87150; 87186; 87205; 99284; A9270-GY; A9579; J0692; J1170; J1650; J2270; J3370; J3490